=== PATIENT | male | born 1940 | race Caucasian/White ===

== ENCOUNTER 2017-08-08 11:21 | Emergency (ER) | payer MEDICARE ==
[2017-08-08] MEDS ORDERED: PROTONIX 40 MG IV IV ONE ×2 (11:45→11:51)
--- NOTE | 2017-08-08 11:45 | ERPHSYRPT ---
- History of Present Illness Time Seen by Provider: 08/08/17 11:40 Source: patient Exam Limitations: no limitations Patient Subjective Stated Complaint: nausea for two days. has taken two bottles of pepto bismol. denies vomiting or diarrhea Triage Nursing Assessment: ambulated to room per self. skin w/d, color pale. resp easy. a/o times three. mouth moist. states has been able to eat and drink. Physician History: The patient is a 77-year-old male with a friend complaining of nausea for 2 days. He denies vomiting, abdominal pain, or diarrhea. He denies chest pain or shortness of breath. He tried to get into his local doctor but their computer system was down and was told to come to the ER. His past medical history is significant for appendectomy, coronary artery disease, cardiac pacemaker and defibrillator, hypertension, CHF, and high cholesterol. Timing/Duration: day(s) (2), constant, gradual onset Severity: moderate Modifying Factors: Improves With: eating Associated Symptoms: nausea, loss of appetite, No vomiting, No abdominal pain, No shortness of breath, No chest pain Allergies/Adverse Reactions: No Known Drug Allergies Allergy (Verified 08/08/17 11:35) Home Medications: Benazepril HCl [Lotensin] 20 mg PO DAILY 08/08/17 [History] Budesonide/Formoterol Fumarate [Symbicort 160-4.5 Mcg Inhaler] 6 gm IH BID 08/08 [History] Carvedilol 6.25 mg [Coreg 6.25 MG] 6.25 mg PO BID 08/08/17 [History] Cholecalciferol (Vitamin D3) [Vitamin D3] 5,000 unit PO DAILY 08/08/17 [History] Clopidogrel Bisulfate 75 mg [PLAVIX 75 MG Tablet] 75 mg PO DAILY 08/08/17 [History] Cyanocobalamin (Vitamin B-12) [Vitamin B12] 5,000 mcg PO DAILY 08/08/17 [History ] Garlic 1 each PO DAILY 08/08/17 [History] Potassium Chloride 10 Meq Tab* [Klor Con 10 MEQ] 10 meq PO TID 08/08/17 [ History] Simvastatin 40 mg [Zocor 40 mg] 40 mg PO HS 08/08/17 [History] Spironolactone 25 mg [Aldactone 25 MG] 25 mg PO DAILY 08/08/17 [History] Tamsulosin HCl 0.4 mg [Flomax 0.4 MG] 0.4 mg PO DAILY 08/08/17 [History] Ubidecarenone [Co Q-10] 400 mg PO DAILY 08/08/17 [History] Hx Tetanus, Diphtheria Vaccination/Date Given: No Hx Influenza Vaccination/Date Given: Yes Hx Pneumococcal Vaccination/Date Given: Yes - Review of Systems Constitutional: No Fever, No Chills Eyes: No Symptoms Ears, Nose, & Throat: No Symptoms Respiratory: No Cough, No Dyspnea Cardiac: No Chest Pain, No Edema, No Syncope Abdominal/Gastrointestinal: Nausea Genitourinary Symptoms: No Dysuria Musculoskeletal: No Back Pain, No Neck Pain Skin: No Rash Neurological: No Dizziness, No Focal Weakness, No Sensory Changes Psychological: No Symptoms Endocrine: No Symptoms Hematologic/Lymphatic: No Symptoms Immunological/Allergic: No Symptoms All Other Systems: Reviewed and Negative - Past Medical History Pertinent Past Medical History: Yes Cardiac History: Coronary Artery Disease Respiratory History: COPD - Past Surgical History Past Surgical History: Yes Cardiac: Angioplasty, Cardiac Catheterization, Cardiac Stent - Social History Smoking Status: Never smoker Exposure to second hand smoke: No Drug Use: none Patient Lives Alone: Yes - Nursing Vital Signs Nursing Vital Signs: Initial Vital Signs Temperature 97.5 F 08/08/17 11:31 Pulse Rate 81 08/08/17 11:31 Respiratory Rate 18 08/08/17 11:31 Blood Pressure 113/67 08/08/17 11:31 O2 Sat by Pulse Oximetry 98 08/08/17 11:31 Pain Scale Pain Intensity 0 - Physical Exam General Appearance: no apparent distress, alert Eye Exam: PERRL/EOMI, eyes nml inspection Ears, Nose, Throat Exam: normal ENT inspection, TMs normal, pharynx normal, moist mucous membranes Neck Exam: normal inspection, non-tender, supple, full range of motion Respiratory Exam: normal breath sounds, lungs clear, No respiratory distress Cardiovascular Exam: regular rate/rhythm, normal heart sounds, normal peripheral pulses Gastrointestinal/Abdomen Exam: soft, normal bowel sounds, No tenderness, No mass Rectal Exam: not done Back Exam: normal inspection, normal range of motion, No CVA tenderness, No vertebral tenderness Neurologic Exam: alert, oriented x 3, cooperative, normal mood/affect, nml cerebellar function, nml station & gait, sensation nml, No motor deficits Skin Exam: normal color, warm, dry, No rash Lymphatic Exam: No adenopathy SpO2 Interpretation: normal SpO2: 98 Oxygen Delivery: Room Air - Course EKG Interpreted by Me: RATE (paced), NORMAL AXIS, NORMAL INTERVALS, NORMAL QRS, NORMAL ST-T - Radiology Exams Chest X-ray Interpretation: Teleradiologist Report, Negative (per DR Marcelino) Abdomen X-ray Interpretation: Teleradiologist Report, Negative (except for biateral renal micro-calculi per Dr Coronel.) Ordered Tests: Active Orders 24 hr Category Date Time Status EKG-ER Only STAT Care 08/08/17 11:45 Active IV Insertion STAT Care 08/08/17 11:45 Active OBSTR/ACUTE ABDOMEN SERIES Stat Exams 08/08/17 11:46 Completed CBC W DIFF Stat Lab 08/08/17 11:50 Completed CMP Stat Lab 08/08/17 11:50 Completed CULTURE,URINE Stat Lab 08/08/17 12:30 Received LIPASE Stat Lab 08/08/17 11:50 Completed Lactic Acid Stat Lab 08/08/17 12:15 Results TROPONIN Q3H Lab 08/08/17 12:00 Completed TROPONIN Q3H Lab 08/08/17 15:00 Ordered TROPONIN Q3H Lab 08/08/17 18:00 Ordered TROPONIN Q3H Lab 08/08/17 21:00 Ordered TROPONIN Q3H Lab 08/09/17 00:00 Ordered UA W/ MICROSCOPIC Stat Lab 08/08/17 12:30 Completed Medication Summary Generic Name Dose Route Start Last Admin Trade Name Freq PRN Reason Stop Dose Admin Sodium Chloride 1,000 mls @ 999 mls/hr 08/08/17 12:28 08/08/17 12:32 Sodium Chloride 0.9% 1000 Ml IV 08/08/17 13:28 999 mls/hr .Q1H1M STA Administration Discontinued Medications Generic Name Dose Route Start Last Admin Trade Name Freq PRN Reason Stop Dose Admin Sodium Chloride Confirm 08/08/17 12:32 Sodium Chloride 0.9% 1000 Ml Administered 08/08/17 12:33 Dose 1,000 mls @ ud .ROUTE .STK-MED ONE Ondansetron HCl 4 mg 08/08/17 12:14 08/08/17 12:21 Zofran 4 Mg/2 Ml Vial IV 08/08/17 12:15 4 mg STAT ONE Administration Ondansetron HCl Confirm 08/08/17 12:20 Zofran 4 Mg/2 Ml Vial Administered 08/08/17 12:21 Dose 4 mg .ROUTE .STK-MED ONE Pantoprazole Sodium 40 mg 08/08/17 11:45 08/08/17 11:55 Protonix 40 Mg Iv IV 08/08/17 11:46 40 mg STAT ONE Administration Pantoprazole Sodium Confirm 08/08/17 11:51 Protonix 40 Mg Iv Administered 08/08/17 11:52 Dose 40 mg IV .STK-MED ONE Lab/Rad Data: Laboratory Result Diagrams 08/08/17 11:50 08/08/17 11:50 Laboratory Results 08/08/17 08/08/17 08/08/17 Range/Units 12:30 12:15 12:00 WBC (4.0-10.5) K/mm3 RBC (4.1-5.6) M/mm3 Hgb (12.5-18.0) gm/dl Hct (42-50) % MCV (78-100) fl MCH (26-32) pg MCHC (32-36) g/dl RDW (11.5-14.0) % Plt Count (150-450) K/mm3 MPV (6-9.5) fl Gran % (36.0-66.0) % Lymphocytes % (24.0-44.0) % Monocytes % (0.0-12.0) % Eosinophils % (0.00-5.0) % Basophils % (0.0-0.4) % Basophils # (0-0.4) Sodium (136-145) mEq/L Potassium (3.5-5.1) mEq/L Chloride (98-107) mEq/L Carbon Dioxide (21-32) mEq/L Anion Gap (5-15) MEQ/L BUN (9-20) mg/dL Creatinine (0.55-1.30) mg/dl Estimated GFR ML/MIN Glucose (70-110) MG/DL Lactic Acid 3.1 H (0.4-2.0) Calcium (8.5-10.1) mg/dL Total Bilirubin (0.2-1.0) mg/dL AST (15-37) U/L ALT (12-78) U/L Alkaline Phosphatase (46-116) U/L Troponin I 0.178 H* (0.000-0.056) ng/ml Serum Total Protein (6.4-8.2) gm/dL Albumin (3.4-5.0) g/dL Lipase (73-393) U/L Ur Collection Type CLEAN CATCH Urine Color DARK YELLOW (YELLOW) Urine Appearance HAZY (CLEAR) Urine pH 5.0 (5-6) Ur Specific [place] 1.025 (1.005-1.025) Urine Protein TRACE (Negative) Urine Ketones SMALL (NEGATIVE) Urine Blood NEGATIVE (0-5) Gray/ul Urine Nitrite NEGATIVE (NEGATIVE) Urine Bilirubin NEGATIVE (NEGATIVE) Urine Urobilinogen NORMAL (0-1) mg/dL Ur Leukocyte Esterase 2+ (NEGATIVE) Urine Microscopic RBC 0-2 (0-2) /HPF Urine Microscopic WBC 15-25 (0-5) /HPF Ur Epithelial Cells FEW (FEW) /HPF Urine Bacteria MODERATE (NEGATIVE) /HPF Hyaline Casts 25-50 (0-2) /LPF Urine Mucus SLIGHT (NEGATIVE) /HPF Urine Culture Reflexed YES (NO) Urine Glucose NEGATIVE (NEGATIVE) mg/dL Specimen Received 08/08/17 1121 08/08/17 08/08/17 Range/Units 11:50 11:50 WBC 14.6 H (4.0-10.5) K/mm3 RBC 4.68 (4.1-5.6) M/mm3 Hgb 14.6 (12.5-18.0) gm/dl Hct 43.2 (42-50) % MCV 92.3 (78-100) fl MCH 31.2 (26-32) pg MCHC 33.8 (32-36) g/dl RDW 13.4 (11.5-14.0) % Plt Count 139 L (150-450) K/mm3 MPV 11.9 H (6-9.5) fl Gran % 91.2 H (36.0-66.0) % Lymphocytes % 5.6 L (24.0-44.0) % Monocytes % 3.1 (0.0-12.0) % Eosinophils % 0.0 (0.00-5.0) % Basophils % 0.1 (0.0-0.4) % Basophils # 0.02 (0-0.4) Sodium 132 L (136-145) mEq/L Potassium 5.1 (3.5-5.1) mEq/L Chloride 97 L (98-107) mEq/L Carbon Dioxide 20.2 L (21-32) mEq/L Anion Gap 20.2 H (5-15) MEQ/L BUN 30 H (9-20) mg/dL Creatinine 2.14 H (0.55-1.30) mg/dl Estimated GFR 32 ML/MIN Glucose 225 H (70-110) MG/DL Lactic Acid (0.4-2.0) Calcium 9.7 (8.5-10.1) mg/dL Total Bilirubin 1.00 (0.2-1.0) mg/dL AST 22 (15-37) U/L ALT 21 (12-78) U/L Alkaline Phosphatase 49 (46-116) U/L Troponin I (0.000-0.056) ng/ml Serum Total Protein 8.3 H (6.4-8.2) gm/dL Albumin 4.1 (3.4-5.0) g/dL Lipase 149 (73-393) U/L Ur Collection Type Urine Color (YELLOW) Urine Appearance (CLEAR) Urine pH (5-6) Ur Specific [place] (1.005-1.025) Urine Protein (Negative) Urine Ketones (NEGATIVE) Urine Blood (0-5) Gray/ul Urine Nitrite (NEGATIVE) Urine Bilirubin (NEGATIVE) Urine Urobilinogen (0-1) mg/dL Ur Leukocyte Esterase (NEGATIVE) Urine Microscopic RBC (0-2) /HPF Urine Microscopic WBC (0-5) /HPF Ur Epithelial Cells (FEW) /HPF Urine Bacteria (NEGATIVE) /HPF Hyaline Casts (0-2) /LPF Urine Mucus (NEGATIVE) /HPF Urine Culture Reflexed (NO) Urine Glucose (NEGATIVE) mg/dL Specimen Received - Progress Progress: improved Progress Note: 08/08/17 12:56 After protonix 40 mg and zofran 4 mg IV, pt's nausea is better. 08/08/17 12:57 Troponin is elevated to 0.178 and pt [facility] be [facility] - Departure Time of Disposition: 12:58 Departure Disposition: Transfer (Transfer to [facility] per Dr Finn) Clinical Impression: Elevated troponin I measurement, Nausea, Renal failure, UTI (urinary tract infection) Condition: Stable Critical Care Time: No Referrals: RONALD ZUÑIGA MD [Primary Care Provider] -
[2017-08-08 11:58] LABS: BASOPHIL % 0.1 % (0.0-0.4); Granulocytes % 91.2 % (36.0-66.0); Lymphocytes % 5.6 % (24.0-44.0); Mean Cell Volume 92.3 fl (78-100); Mean Corpuscular Hemoglobin 31.2 pg (26-32); Mean Platelet Volume 11.9 fl (6-9.5); Monocytes % 3.1 % (0.0-12.0); Platelet Count 139 K/mm3 (150-450); Red Blood Count 4.68 M/mm3 (4.1-5.6); Red Cell Distribution Width 13.4 % (11.5-14.0); White Blood Count 14.6 K/mm3 (4.0-10.5)
[2017-08-08 12:07] LABS: ALBUMIN 4.1 g/dL (3.4-5.0); ANION GAP 20.2 MEQ/L (5-15); Carbon Dioxide 20.2 mEq/L (21-32); Potassium 5.1 mEq/L (3.5-5.1); Total Protein 8.3 gm/dL (6.4-8.2)
[2017-08-08] MEDS ORDERED: Zofran 4 MG/2 ML VIAL IV ONE (12:14)
[2017-08-08 12:20] LABS: Lactic Acid 3.1 (0.4-2.0)
[2017-08-08] MEDS ORDERED: Zofran 4 MG/2 ML VIAL ONE (12:20)
[2017-08-08] MEDS ORDERED: Sodium Chloride 0.9% 1000 ML 1,000 ML IV STA (12:28)
[2017-08-08] MEDS ORDERED: Sodium Chloride 0.9% 1000 ML 1,000 ML ONE (12:32)
--- NOTE | 2017-08-08 12:36 | XRAY ---
Indication: Nausea and cough. Comparison: Chest exam November 15, 2014. 2 views of the demonstrates nonspecific nonobstructed bowel gas pattern. There are bilateral renal micro-calculi and mild scattered vascular calcifications. Remaining solid organs unremarkable. Osseous structures intact with mild osteopenia and mild degenerative changes throughout the spine. Single PA chest hyperinflated and clear with incidental calcified granulomas. Heart is not enlarged. New left-sided AICD. Bony thorax intact. Impression: 1. Bilateral renal micro-calculi. CT renal stone study may yield further information if clinically warranted. 2. Nonacute one view chest.
[2017-08-08 12:55] LABS: Collection Type CLEAN CATCH; Glucose NEGATIVE (NEGATIVE); Leukocyte Esterase 2+ (NEGATIVE)
[2017-08-08 12:56] LABS: ADD URINE CULTURE? YES (NO); Bacteria MODERATE /HPF (NEGATIVE); Bilirubin NEGATIVE (NEGATIVE); Blood NEGATIVE Ery/ul (0-5); COMPLETE URINE MICROSCOPIC? YES; Epithelial Cells FEW /HPF (FEW); Hyaline Casts 25-50 /LPF (0-2); Mucus SLIGHT /HPF (NEGATIVE); WBC 15-25 /HPF (0-5)
[2017-08-08 13:47] VITALS: BP 99/57; PULSE 77; O2SAT 97
== END 2017-08-08 14:22 | disposition short-term general hospital (02) ==
LOC: ED 11:21
DX: R77.8 Other specified abnormalities of plasma proteins (principal); R11.0 Nausea; N19 Unspecified kidney failure; N39.0 Urinary tract infection, site not specified; Z79.899 Other long term (current) drug therapy
CPT/HCPCS: 36000; 36415; 74022; 80053; 81000; 83605; 83690; 84484; 85025; 87077; 87086; 87186; 93005; 96360; 96374; 96375; 99285; J2405

== ENCOUNTER 2017-08-22 14:53 | Emergency (ER) | payer MEDICARE ==
[2017-08-22] MEDS ORDERED: Zofran 4 MG/2 ML VIAL IV ONE (15:31)
[2017-08-22] MEDS ORDERED: Sodium Chloride 0.9% 1000 ML 1,000 ML ONE ×2 (15:35→17:26)
[2017-08-22] MEDS ORDERED: Zofran 4 MG/2 ML VIAL ONE (15:35)
[2017-08-22 15:38] LABS: BASOPHIL % 0.1 % (0.0-0.4); Eosinophil % 0.2 % (0.00-5.0); Lymphocytes % 11.6 % (24.0-44.0); Mean Cell Volume 88.4 fl (78-100); Mean Corpuscular Hemoglobin 29.9 pg (26-32); Mean Platelet Volume 10.5 fl (6-9.5); Monocytes % 8.1 % (0.0-12.0); Platelet Count 372 K/mm3 (150-450); Red Blood Count 4.65 M/mm3 (4.1-5.6); Red Cell Distribution Width 13.4 % (11.5-14.0); White Blood Count 8.4 K/mm3 (4.0-10.5)
--- NOTE | 2017-08-22 15:39 | ERPHSYRPT ---
- History of Present Illness Time Seen by Provider: 08/22/17 15:27 Source: patient Exam Limitations: no limitations Patient Subjective Stated Complaint: dizziness today. saw dr malagon this morning and stated he was back at home and got up and got dizzy. got out of hospital on 08/18 after a 10 day hospital stay at [facility]. pt c/o constant nausea/ vomiting daily since 08/08 Triage Nursing Assessment: abd soft. skin pale/warm and dry. no weakness noted. no dizziness with movement on arrival. c/o lower bcak pain and constant nausea. Physician History: 77-year-old white male arrives with complaint of nausea since August 08, also with a feeling dizzy states he was "bouncing off the baird at around 2:00 this afternoon. Denies any pain does not have any problems moving or speaking. Patient apparently was recently seen at [facility] August 08 and transferred to [facility] where he was cared for until the . He states that he was told by his grievance manager that he might have some type of infection and has been on antibiotics. Past medical history includes COPD, coronary artery disease. Past surgical history includes angioplasty, cardiac stent, cardiac catheter, defibrillator, pacer, appendectomy. Timing/Duration: other (patient states patient states he's been nauseous since August 08,patient states he began to feel dizzy and bouncing off baird since 2: 00 this afternoon) Severity: moderate Modifying Factors: Improves With: nothing Associated Symptoms: nausea, other (dizziness, problems with balance), No vomiting, No abdominal pain, No shortness of breath, No heartburn, No diaphoresis, No cough, No chills, No chest pain, No fever, No headaches, No loss of appetite, No malaise, No rash, No syncope, No seizure, No weakness Allergies/Adverse Reactions: No Known Drug Allergies Allergy (Verified 08/22/17 15:11) Home Medications: Benazepril HCl [Lotensin] 20 mg PO DAILY 08/08/17 [History] Budesonide/Formoterol Fumarate [Symbicort 160-4.5 Mcg Inhaler] 6 gm IH BID 08/08 [History] Carvedilol 6.25 mg [Coreg 6.25 MG] 6.25 mg PO BID 08/08/17 [History] Cholecalciferol (Vitamin D3) [Vitamin D3] 5,000 unit PO DAILY 08/08/17 [History] Cyanocobalamin (Vitamin B-12) [Vitamin B12] 5,000 mcg PO DAILY 08/08/17 [History ] Garlic 1 each PO DAILY 08/08/17 [History] Potassium Chloride 10 Meq Tab* [Klor Con 10 MEQ] 10 meq PO TID 08/08/17 [ History] Spironolactone 25 mg [Aldactone 25 MG] 25 mg PO DAILY 08/08/17 [History] Tamsulosin HCl 0.4 mg [Flomax 0.4 MG] 0.4 mg PO DAILY 08/08/17 [History] Ubidecarenone [Co Q-10] 400 mg PO DAILY 08/08/17 [History] Amiodarone HCl 200 mg [Cordarone 200 MG] 200 mg PO BID 08/22/17 [History] Rivaroxaban [Xarelto] 20 mg PO DAILY 08/22/17 [History] Simvastatin 20Mg [Zocor 20Mg] 10 mg PO DAILY 08/22/17 [History] Smz/Tmp Ds Tablet [Bactrim Ds Tablet] 1 tab PO Q12H 08/22/17 [History] Hx Tetanus, Diphtheria Vaccination/Date Given: Yes Hx Influenza Vaccination/Date Given: Yes Hx Pneumococcal Vaccination/Date Given: No Immunizations Up to Date: Yes - Review of Systems Constitutional: No Fever, No Chills Eyes: No Symptoms Ears, Nose, & Throat: No Symptoms Respiratory: No Cough, No Dyspnea Cardiac: No Chest Pain, No Edema, No Syncope Abdominal/Gastrointestinal: Nausea, No Abdominal Pain, No Vomiting, No Diarrhea , No Constipation, No Hematemesis, No Hematochezia, No Melena, No Dysphagia, No Appetite Changes Genitourinary Symptoms: No Dysuria Musculoskeletal: No Back Pain, No Neck Pain Skin: No Rash Neurological: Dizziness, Other (trouble with balance), No Focal Weakness, No Gait Changes, No Headache, No Irritability, No Lethargy, No Paralysis, No Parasthesia, No Seizure, No Sensory Changes, No Speech Changes, No Tics, No Tremors, No Vertigo Psychological: No Symptoms Endocrine: No Symptoms All Other Systems: Reviewed and Negative - Past Medical History Pertinent Past Medical History: Yes Cardiac History: Coronary Artery Disease Respiratory History: COPD - Past Surgical History Past Surgical History: Yes Cardiac: Angioplasty, Cardiac Catheterization, Cardiac Stent, Internal Defibrillator, Pacemaker Gastrointestinal: Appendectomy - Social History Smoking Status: Never smoker Exposure to second hand smoke: Yes Drug Use: none Patient Lives Alone: No - Nursing Vital Signs Nursing Vital Signs: Initial Vital Signs Temperature 97.5 F 08/22/17 15:02 Pulse Rate 69 08/22/17 15:02 Respiratory Rate 18 08/22/17 15:02 Blood Pressure 108/40 08/22/17 15:02 O2 Sat by Pulse Oximetry 97 08/22/17 15:02 Pain Scale Pain Intensity 0 - Physical Exam General Appearance: no apparent distress, alert Eye Exam: PERRL/EOMI, eyes nml inspection Ears, Nose, Throat Exam: normal ENT inspection, TMs normal, pharynx normal, moist mucous membranes Neck Exam: normal inspection, non-tender, supple, full range of motion Respiratory Exam: normal breath sounds, lungs clear, No respiratory distress Cardiovascular Exam: regular rate/rhythm, normal heart sounds, normal peripheral pulses Gastrointestinal/Abdomen Exam: soft, normal bowel sounds, No tenderness, No mass Back Exam: normal inspection, normal range of motion, No CVA tenderness, No vertebral tenderness Extremity Exam: normal inspection, normal range of motion, pelvis stable Neurologic Exam: alert, oriented x 3, cooperative, normal mood/affect, nml cerebellar function, nml station & gait, sensation nml, No motor deficits Skin Exam: normal color, warm, dry, No rash Lymphatic Exam: No adenopathy SpO2 Interpretation: normal (97%) SpO2: 97 Oxygen Delivery: Room Air - Course Nursing assessment & vital signs reviewed: Yes EKG Interpreted by Me: RATE (66 bpm), Other (EKG: Paced rhythm, 66 bpm) Ordered Tests: Active Orders 24 hr Category Date Time Status Accucheck STAT Care 08/22/17 15:31 Active EKG-ER Only STAT Care 08/22/17 15:31 Active IV Insertion STAT Care 08/22/17 15:31 Active Orthostatic Vital Signs STAT Care 08/22/17 15:31 Active CHEST 1 VIEW (PORTABLE) Stat Exams 08/22/17 15:31 Taken HEAD WITHOUT CONTRAST [CT] Stat Exams 08/22/17 15:31 Taken CBC W DIFF Stat Lab 08/22/17 15:20 Completed CMP Stat Lab 08/22/17 15:20 Completed CULTURE,URINE Stat Lab 08/22/17 15:31 Received ETHYL ALCOHOL Stat Lab 08/22/17 15:20 Completed TROPONIN Q3H Lab 08/22/17 15:20 Completed UA W/ MICROSCOPIC Stat Lab 08/22/17 15:31 Completed Urine Triage Profile Stat Lab 08/22/17 15:32 Completed Medication Summary Discontinued Medications Generic Name Dose Route Start Last Admin Trade Name Lukeq PRN Reason Stop Dose Admin Dextrose 50 ml 08/22/17 16:28 08/22/17 16:55 D50w 50 Ml Abboject IV 08/22/17 16:29 50 ml STAT ONE Administration Dextrose Confirm 08/22/17 16:54 D50w 50 Ml Abboject Administered 08/22/17 16:55 Dose 50 ml IV .STK-MED ONE Sodium Chloride 1,000 mls @ 100 mls/hr 08/22/17 15:45 08/22/17 15:37 Sodium Chloride 0.9% 1000 Ml IV 09/21/17 15:44 100 mls/hr .Q10H STEPHANIE Administration Sodium Chloride 1,000 mls @ 999 mls/hr 08/22/17 17:25 08/22/17 17:49 Sodium Chloride 0.9% 1000 Ml IV 08/22/17 18:25 999 mls/hr .Q1H1M STA Administration Sodium Chloride Confirm 08/22/17 15:35 Sodium Chloride 0.9% 1000 Ml Administered 08/22/17 15:36 Dose 1,000 mls @ ud .ROUTE .STK-MED ONE Sodium Chloride Confirm 08/22/17 17:26 Sodium Chloride 0.9% 1000 Ml Administered 08/22/17 17:27 Dose 1,000 mls @ ud .ROUTE .STK-MED ONE Insulin Human Regular 10 unit 08/22/17 16:28 08/22/17 16:55 Novolin R IV 08/22/17 16:29 10 unit STAT ONE Administration Insulin Human Regular Confirm 08/22/17 16:54 Novolin R Administered 08/22/17 16:55 Dose 10 unit .ROUTE .STK-MED ONE Ondansetron HCl 4 mg 08/22/17 15:31 08/22/17 15:37 Zofran 4 Mg/2 Ml Vial IV 08/22/17 15:32 4 mg STAT ONE Administration Ondansetron HCl Confirm 08/22/17 15:35 Zofran 4 Mg/2 Ml Vial Administered 08/22/17 15:36 Dose 4 mg .ROUTE .STK-MED ONE Lab/Rad Data: Laboratory Result Diagrams 08/22/17 15:20 08/22/17 15:20 Laboratory Results 08/22/17 08/22/17 08/22/17 Range/Units 15:32 15:31 15:20 WBC (4.0-10.5) K/mm3 RBC (4.1-5.6) M/mm3 Hgb (12.5-18.0) gm/dl Hct (42-50) % MCV (78-100) fl MCH (26-32) pg MCHC (32-36) g/dl RDW (11.5-14.0) % Plt Count (150-450) K/mm3 MPV (6-9.5) fl Gran % (36.0-66.0) % Lymphocytes % (24.0-44.0) % Monocytes % (0.0-12.0) % Eosinophils % (0.00-5.0) % Basophils % (0.0-0.4) % Basophils # (0-0.4) Sodium (136-145) mEq/L Potassium (3.5-5.1) mEq/L Chloride (98-107) mEq/L Carbon Dioxide (21-32) mEq/L Anion Gap (5-15) MEQ/L BUN (9-20) mg/dL Creatinine (0.55-1.30) mg/dl Estimated GFR ML/MIN Glucose (70-110) MG/DL Calcium (8.5-10.1) mg/dL Total Bilirubin (0.2-1.0) mg/dL AST (15-37) U/L ALT (12-78) U/L Alkaline Phosphatase (46-116) U/L Troponin I < 0.017 (0.000-0.056) ng/ml Serum Total Protein (6.4-8.2) gm/dL Albumin (3.4-5.0) g/dL Ur Collection Type VOID Urine Color YELLOW (YELLOW) Urine Appearance CLEAR (CLEAR) Urine pH 5.0 (5-6) Ur Specific [place] 1.020 (1.005-1.025) Urine Protein 2+ (Negative) Urine Ketones NEGATIVE (NEGATIVE) Urine Blood 50 (0-5) Gray/ul Urine Nitrite NEGATIVE (NEGATIVE) Urine Bilirubin NEGATIVE (NEGATIVE) Urine Urobilinogen NORMAL (0-1) mg/dL Ur Leukocyte Esterase 1+ (NEGATIVE) Urine Microscopic RBC 0-2 (0-2) /HPF Urine Microscopic WBC 5-10 (0-5) /HPF Ur Epithelial Cells FEW (FEW) /HPF Urine Bacteria MODERATE (NEGATIVE) /HPF Urine Mucus MODERATE (NEGATIVE) /HPF Urine Culture Reflexed YES (NO) Urine Glucose NEGATIVE (NEGATIVE) mg/dL Urine Opiates Level NEG. (NEGATIVE) Ur Methadone NEG. (NEGATIVE) Urine Barbiturates NEG. (NEGATIVE) Ur Phencyclidine (PCP) NEG. (NEGATIVE) Urine Amphetamine NEG. (NEGATIVE) U Benzodiazepine Level NEG. (NEGATIVE) Urine Cocaine NEG. (NEGATIVE) Urine Marijuana (THC) NEG. (NEGATIVE) Ethyl Alcohol (0.00-0.01) % Specimen Received 08/22/17 1615 08/22/17 08/22/17 Range/Units 15:20 15:20 WBC 8.4 (4.0-10.5) K/mm3 RBC 4.65 (4.1-5.6) M/mm3 Hgb 13.9 (12.5-18.0) gm/dl Hct 41.1 L (42-50) % MCV 88.4 (78-100) fl MCH 29.9 (26-32) pg MCHC 33.8 (32-36) g/dl RDW 13.4 (11.5-14.0) % Plt Count 372 (150-450) K/mm3 MPV 10.5 H (6-9.5) fl Gran % 80.0 H (36.0-66.0) % Lymphocytes % 11.6 L (24.0-44.0) % Monocytes % 8.1 (0.0-12.0) % Eosinophils % 0.2 (0.00-5.0) % Basophils % 0.1 (0.0-0.4) % Basophils # 0.01 (0-0.4) Sodium 126 L (136-145) mEq/L Potassium 6.9 H* (3.5-5.1) mEq/L Chloride 93 L (98-107) mEq/L Carbon Dioxide 16.7 L (21-32) mEq/L Anion Gap 24.4 H (5-15) MEQ/L BUN 32 H (9-20) mg/dL Creatinine 2.88 H (0.55-1.30) mg/dl Estimated GFR 23 ML/MIN Glucose 137 H (70-110) MG/DL Calcium 10.1 (8.5-10.1) mg/dL Total Bilirubin 0.50 (0.2-1.0) mg/dL AST 24 (15-37) U/L ALT 22 (12-78) U/L Alkaline Phosphatase 53 (46-116) U/L Troponin I (0.000-0.056) ng/ml Serum Total Protein 8.9 H (6.4-8.2) gm/dL Albumin 4.2 (3.4-5.0) g/dL Ur Collection Type Urine Color (YELLOW) Urine Appearance (CLEAR) Urine pH (5-6) Ur Specific [place] (1.005-1.025) Urine Protein (Negative) Urine Ketones (NEGATIVE) Urine Blood (0-5) Gray/ul Urine Nitrite (NEGATIVE) Urine Bilirubin (NEGATIVE) Urine Urobilinogen (0-1) mg/dL Ur Leukocyte Esterase (NEGATIVE) Urine Microscopic RBC (0-2) /HPF Urine Microscopic WBC (0-5) /HPF Ur Epithelial Cells (FEW) /HPF Urine Bacteria (NEGATIVE) /HPF Urine Mucus (NEGATIVE) /HPF Urine Culture Reflexed (NO) Urine Glucose (NEGATIVE) mg/dL Urine Opiates Level (NEGATIVE) Ur Methadone (NEGATIVE) Urine Barbiturates (NEGATIVE) Ur Phencyclidine (PCP) (NEGATIVE) Urine Amphetamine (NEGATIVE) U Benzodiazepine Level (NEGATIVE) Urine Cocaine (NEGATIVE) Urine Marijuana (THC) (NEGATIVE) Ethyl Alcohol < 0.010 (0.00-0.01) % Specimen Received - Progress Progress: improved Progress Note: 08/22/17 15:37 This is a 77-year-old white male with history of COPD coronary artery disease who has a pacer defibrillator. He apparently has had a prolonged hospital stay from a August 08 to August 18 at [facility]. He apparently has seen his grievance manager this morning. He states that this afternoon around 2:00 he went to go to the bathroom he began to feel dizzy he states that he "bounced off the baird" secondary to imbalance. He states he continues to feel nauseous since On physical examination patient is alert oriented 3 he has full range of motion to all extremities. EKG shows a paced rhythm. Will obtain appropriate laboratory studies head CT Provide normal saline at 100 mL per hour 08/22/17 16:[address] no comparisons nonacute senile brain. Patient's EKG paced rhythm 66 bpm Chest x-ray no acute changes Patient's chemistry is remarkable for sodium 126 potassium 6.9 chloride 93 bicarbonate 16.7 BUN 32 creatinine 2.88, glucose 137 CBC White blood cell 8.4 hemoglobin 13.9 hematocrit 41.1 platelets 372 Blood alcohol level less than 0.010 Patient did have a transient decrease of his blood pressure which was read as 81 systolic however he initially had a blood pressure systolic of 105 is come back to 98 systolic. I've discussed case with at [facility] (ER doctor) she is requested that I begin insulin and glucose to bring down the patient's blood potassium,. Give patient Kayexalate as well. Will provide IV fluids to support blood pressure they appear to be stable at this time will make sure this remains stable. Will plan for transfer Will call with vitals prior to transfer Diagnosis dizziness. Hyperkalemia Hyponatremia Nausea. 08/22/17 16:42 I've asked the nurses go ahead and collar turner patient's normal saline to run at in the running in a 500 mL per hour will plan the patient received a liter of this and will plan on patient being transferred on normal saline 150 mL per hour. Blood pressure stable at this time, orders for D50 1 amp as well as Humulin R 10 units IV have been ordered. Will plan on transfer. 08/22/17 19:52 - Departure Time of Disposition: 17:00 Departure Disposition: Transfer ([facility] Dr Butcher) Clinical Impression: Hyperkalemia, Hyponatremia, Dizziness, Nausea Condition: Fair Critical Care Time: No Referrals: RONALD ZUÑIGA MD [Primary Care Provider] -
[2017-08-22] MEDS ORDERED: Sodium Chloride 0.9% 1000 ML 1,000 ML IV SCH (15:45)
[2017-08-22 15:52] LABS: ALBUMIN 4.2 g/dL (3.4-5.0); ALKALINE PHOSPHATASE 53 U/L (46-116); ANION GAP 24.4 MEQ/L (5-15); BLOOD UREA NITROGEN 32 mg/dL (9-20); CHLORIDE 93 mEq/L (98-107); Carbon Dioxide 16.7 mEq/L (21-32); ETHYL ALCOHOL < 0.010 % (0.00-0.01); Glucose 137 MG/DL (70-110); SGOT/AST 24 U/L (15-37); SGPT/ALT 22 U/L (12-78); SODIUM 126 mEq/L (136-145); Total Protein 8.9 gm/dL (6.4-8.2)
[2017-08-22 15:53] LABS: Potassium 6.9 mEq/L (3.5-5.1)
[2017-08-22] MEDS ORDERED: NovoLIN R IV ONE (16:28)
[2017-08-22] MEDS ORDERED: D50W 50 ml Abboject IV ONE ×2 (16:28→16:54)
[2017-08-22 16:39] LABS: Collection Type VOID; Glucose NEGATIVE (NEGATIVE); Leukocyte Esterase 1+ (NEGATIVE)
[2017-08-22 16:40] LABS: ADD URINE CULTURE? YES (NO); Bacteria MODERATE /HPF (NEGATIVE); Bilirubin NEGATIVE (NEGATIVE); Blood 50 Ery/ul (0-5); COMPLETE URINE MICROSCOPIC? YES; Epithelial Cells FEW /HPF (FEW); Mucus MODERATE /HPF (NEGATIVE)
[2017-08-22] MEDS ORDERED: NovoLIN R ONE (16:54)
[2017-08-22] MEDS ORDERED: Sodium Chloride 0.9% 1000 ML 1,000 ML IV STA (17:25)
[2017-08-22 18:00] VITALS: BP 111/59; PULSE 79
[2017-08-22 19:51] VITALS: O2SAT 97
--- NOTE | 2017-08-22 22:22 | XRAY ---
Indication: Unbalanced when walking. Comparison: August 08, 2017. Portable chest unchanged again hyperinflated and clear with incidental calcified granulomas and left-sided AICD. Heart is not enlarged. No new/acute findings.
--- NOTE | 2017-08-22 22:24 | XRAY ---
Indication: Unbalanced when walking. Multiple contiguous axial images obtained through the head without contrast. Comparison: None Age-appropriate global atrophy and moderate periventricular degenerative micro-ischemia bilaterally. No acute intracranial hemorrhage, abnormal extra-axial fluid collection, or mass effect. Fourth ventricle is midline without hydrocephalus. Bony calvarium intact. Visualized paranasal sinuses and mastoid air cells are clear. Impression: Nonacute senile brain. CTDI 67.60
== END 2017-08-22 18:40 | disposition short-term general hospital (02) ==
LOC: ED 14:53
DX: E87.5 Hyperkalemia (principal); E87.1 Hypo-osmolality and hyponatremia; R42 Dizziness and giddiness; R11.0 Nausea; Z79.899 Other long term (current) drug therapy; I25.10 Atherosclerotic heart disease of native coronary artery without angina pectoris; J44.9 Chronic obstructive pulmonary disease, unspecified; Z98.61 Coronary angioplasty status; Z95.0 Presence of cardiac pacemaker; Z95.810 Presence of automatic (implantable) cardiac defibrillator
CPT/HCPCS: 96374; 99285; 36000; 82962; 96360; 96361; 96375; 93005; 81000; 36415; 80307; 85025; 80053; 84484; 87086; 71010; 70450; G0481; J2405; A9270-GY

== ENCOUNTER 2017-09-08 08:28 | Emergency (ER) | payer MEDICARE ==
[2017-09-08] MEDS ORDERED: Zofran 4 MG/2 ML VIAL IV ONE (09:00)
[2017-09-08] MEDS ORDERED: Sodium Chloride 0.9% 1000 ML 1,000 ML IV SCH (09:00)
[2017-09-08] MEDS ORDERED: MORPHINE SULFATE 10 MG/ML IV ONE (09:00)
[2017-09-08] MEDS ORDERED: MORPHINE SULFATE 10 MG/ML ONE (09:07)
[2017-09-08] MEDS ORDERED: Sodium Chloride 0.9% 1000 ML 1,000 ML ONE (09:08)
[2017-09-08] MEDS ORDERED: Zofran 4 MG/2 ML VIAL ONE (09:08)
[2017-09-08 09:18] LABS: BASOPHIL % 0.2 % (0.0-0.4); Eosinophil % 0.2 % (0.00-5.0); Lymphocytes % 10.1 % (24.0-44.0); Mean Cell Volume 90.8 fl (78-100); Mean Corpuscular Hemoglobin 29.2 pg (26-32); Monocytes % 7.5 % (0.0-12.0); Platelet Count 167 K/mm3 (150-450); Red Cell Distribution Width 14.1 % (11.5-14.0)
--- NOTE | 2017-09-08 09:34 | ERPHSYRPT ---
- History of Present Illness Time Seen by Provider: 09/08/17 08:45 Exam Limitations: clinical condition Patient Subjective Stated Complaint: pt here for lower back pain for a month now , states started after spending 3 weeks in hospital. no injury. states now legs are weak, denies any difficulty with b/b . pt also co nausea Triage Nursing Assessment: pt alert, resp easy, skin w/d pink. no edema noted. pt able to get from w/c to bed with no assistance. Physician History: PATIENT WITH A HISTORY OF CHF, COPD COMPLAINS OF LOW BACK PAIN X 1 MONTH, DENIES HISTORY OF TRAUMA OR INJURY, RADIATION OF PAIN DOWN LEGS. HAS NO RELIEF AFTER TREATMENT BY CHIROPRACTOR TREATMENTS. Timing/Duration: week(s) Method of Injury: unknown Quality: throbbing Back Pain Location: lumbar spine Back Pain Radiation: buttocks Severity of Pain-Max: moderate Severity of Pain-Current: moderate Modifying Factors: Improves With: movement Associated Symptoms: muscle spasms Previous symptoms: same symptoms as today Allergies/Adverse Reactions: No Known Drug Allergies Allergy (Verified 09/08/17 08:44) Home Medications: Benazepril HCl [Lotensin] 20 mg PO DAILY 08/08/17 [History] Budesonide/Formoterol Fumarate [Symbicort 160-4.5 Mcg Inhaler] 6 gm IH BID 08/08 [History] Carvedilol 6.25 mg [Coreg 6.25 MG] 6.25 mg PO BID 08/08/17 [History] Cholecalciferol (Vitamin D3) [Vitamin D3] 5,000 unit PO DAILY 08/08/17 [History] Cyanocobalamin (Vitamin B-12) [Vitamin B12] 5,000 mcg PO DAILY 08/08/17 [History ] Garlic 1 each PO DAILY 08/08/17 [History] Potassium Chloride 10 Meq Tab* [Klor Con 10 MEQ] 10 meq PO TID 08/08/17 [ History] Spironolactone 25 mg [Aldactone 25 MG] 25 mg PO DAILY 08/08/17 [History] Tamsulosin HCl 0.4 mg [Flomax 0.4 MG] 0.4 mg PO DAILY 08/08/17 [History] Ubidecarenone [Co Q-10] 400 mg PO DAILY 08/08/17 [History] Amiodarone HCl 200 mg [Cordarone 200 MG] 200 mg PO BID 08/22/17 [History] Rivaroxaban [Xarelto] 20 mg PO DAILY 08/22/17 [History] Simvastatin 20Mg [Zocor 20Mg] 10 mg PO DAILY 08/22/17 [History] Smz/Tmp Ds Tablet [Bactrim Ds Tablet] 1 tab PO Q12H 08/22/17 [History] Hx Tetanus, Diphtheria Vaccination/Date Given: No Hx Influenza Vaccination/Date Given: Yes Hx Pneumococcal Vaccination/Date Given: No Immunizations Up to Date: Yes - Review of Systems Constitutional: No Fever, No Chills Eyes: No Symptoms Ears, Nose, & Throat: No Symptoms Respiratory: No Cough, No Dyspnea Cardiac: No Chest Pain, No Edema, No Syncope Abdominal/Gastrointestinal: No Abdominal Pain, No Nausea, No Vomiting, No Diarrhea Genitourinary Symptoms: No Symptoms, Flank Pain, No Dysuria Musculoskeletal: Back Pain, No Neck Pain Skin: No Rash Neurological: No Dizziness, No Focal Weakness, No Sensory Changes Psychological: No Symptoms Endocrine: No Symptoms All Other Systems: Reviewed and Negative - Past Medical History Pertinent Past Medical History: Yes Cardiac History: Coronary Artery Disease Respiratory History: COPD - Past Surgical History Past Surgical History: Yes Cardiac: Angioplasty, Cardiac Catheterization, Cardiac Stent, Internal Defibrillator, Pacemaker Gastrointestinal: Appendectomy - Social History Smoking Status: Never smoker Exposure to second hand smoke: No Drug Use: none Patient Lives Alone: No - Nursing Vital Signs Nursing Vital Signs: Initial Vital Signs Temperature 98 F 09/08/17 08:37 Pulse Rate 83 09/08/17 08:37 Respiratory Rate 16 09/08/17 08:37 Blood Pressure 112/67 09/08/17 08:37 O2 Sat by Pulse Oximetry 98 09/08/17 08:37 Pain Scale Pain Intensity [Back] 10 Pain Intensity 10 - Physical Exam General Appearance: no apparent distress, alert Eye Exam: PERRL/EOMI, eyes nml inspection Neck Exam: normal inspection, non-tender, supple, full range of motion, No meningismus, No midline tenderness Respiratory Exam: normal breath sounds, lungs clear, No respiratory distress Cardiovascular Exam: regular rate/rhythm, normal heart sounds Gastrointestinal Exam: soft, normal bowel sounds, other (NONTENDER, BILATERAL CVA TENDERNESS), No tenderness, No mass Back Exam: normal inspection, vertebral tenderness (L1-L5 VERTEBRAL AND PARASPINAL), decreased range of motion, muscle spasm Extremity Exam: normal inspection, normal range of motion, No calf tenderness, No pedal edema Peripheral Pulses: carotid (R): 2+, carotid (L): 2+, femoral (R): 2+, femoral (L ): 2+, dorsalis-pedis (R): 2+, dorsalis-pedis (L): 2+ Neurologic Exam: alert, oriented x 3, cooperative, yarn finisher II-XII nml as tested, normal mood/affect, nml station & gait, sensation nml, No motor deficits Skin Exam: normal color, warm, dry, No rash SpO2 Interpretation: normal SpO2: 98 Oxygen Delivery: Room Air - CT Exams Abdomen/Pelvis CT Interpretation: Tele-radiologist Report (BILATERAL RENAL TINY NONOBSTRUCTIONS STONES, NO EVIDENCE OF HYDRONEPHROSIS ), Other (THERE ARE SMALL ANTERIOR AND LATERAL OSTEOPHYTES INVOLVING THE LUMBAR SPINE, NO ACUTE FRACTURE OR DISLOCATION) Ordered Tests: Active Orders 24 hr Category Date Time Status IV Insertion STAT Care 09/08/17 09:00 Active ABDOMEN AND PELVIS W/0 CONTRAS [CT] Stat Exams 09/08/17 09:02 Taken AMYLASE Stat Lab 09/08/17 09:14 Completed CBC W DIFF Stat Lab 09/08/17 09:14 Completed CMP Stat Lab 09/08/17 09:14 Completed LIPASE Stat Lab 09/08/17 09:14 Completed UA W/RFX UR CULTURE Stat Lab 09/08/17 10:00 Completed Medication Summary Generic Name Dose Route Start Last Admin Trade Name Freq PRN Reason Stop Dose Admin Sodium Chloride 1,000 mls @ 100 mls/hr 09/08/17 09:00 09/08/17 09:09 Sodium Chloride 0.9% 1000 Ml IV 10/08/17 08:59 100 mls/hr .Q10H STEPHANIE Administration Discontinued Medications Generic Name Dose Route Start Last Admin Trade Name Freq PRN Reason Stop Dose Admin Morphine Sulfate 6 mg 09/08/17 09:00 09/08/17 09:16 Morphine Sulfate 10 Mg/Ml IV 09/08/17 09:01 6 mg STAT ONE Administration Morphine Sulfate Confirm 09/08/17 09:07 Morphine Sulfate 10 Mg/Ml Administered 09/08/17 09:08 Dose 10 mg .ROUTE .STK-MED ONE Ondansetron HCl 4 mg 09/08/17 09:00 09/08/17 09:09 Zofran 4 Mg/2 Ml Vial IV 09/08/17 09:01 4 mg STAT ONE Administration Ondansetron HCl Confirm 09/08/17 09:08 Zofran 4 Mg/2 Ml Vial Administered 09/08/17 09:09 Dose 4 mg .ROUTE .STK-MED ONE Lab/Rad Data: Laboratory Result Diagrams 09/08/17 09:14 09/08/17 09:14 Laboratory Results 09/08/17 09/08/17 09/08/17 Range/Units 10:00 09:14 09:14 WBC 6.0 (4.0-10.5) K/mm3 RBC 3.90 L (4.1-5.6) M/mm3 Hgb 11.4 L (12.5-18.0) gm/dl Hct 35.4 L (42-50) % MCV 90.8 (78-100) fl MCH 29.2 (26-32) pg MCHC 32.2 (32-36) g/dl RDW 14.1 H (11.5-14.0) % Plt Count 167 (150-450) K/mm3 MPV 10.0 H (6-9.5) fl Gran % 82.0 H (36.0-66.0) % Lymphocytes % 10.1 L (24.0-44.0) % Monocytes % 7.5 (0.0-12.0) % Eosinophils % 0.2 (0.00-5.0) % Basophils % 0.2 (0.0-0.4) % Basophils # 0.01 (0-0.4) Sodium 132 L (136-145) mEq/L Potassium 4.6 (3.5-5.1) mEq/L Chloride 100 (98-107) mEq/L Carbon Dioxide 19.4 L (21-32) mEq/L Anion Gap 17.3 H (5-15) MEQ/L BUN 18 (9-20) mg/dL Creatinine 1.36 H (0.55-1.30) mg/dl Estimated GFR 54 ML/MIN Glucose 178 H (70-110) MG/DL Calcium 9.0 (8.5-10.1) mg/dL Total Bilirubin 0.50 (0.2-1.0) mg/dL AST 18 (15-37) U/L ALT 15 (12-78) U/L Alkaline Phosphatase 52 (46-116) U/L Serum Total Protein 7.5 (6.4-8.2) gm/dL Albumin 3.5 (3.4-5.0) g/dL Amylase 69 (25-115) U/L Lipase 243 (73-393) U/L Ur Collection Type CLEAN CATCH Urine Color YELLOW (YELLOW) Urine Appearance CLEAR (CLEAR) Urine pH 5.0 (5-6) Ur Specific [place] 1.015 (1.005-1.025) Urine Protein NEGATIVE (Negative) Urine Ketones NEGATIVE (NEGATIVE) Urine Blood NEGATIVE (0-5) Gray/ul Urine Nitrite NEGATIVE (NEGATIVE) Urine Bilirubin NEGATIVE (NEGATIVE) Urine Urobilinogen NORMAL (0-1) mg/dL Ur Leukocyte Esterase NEGATIVE (NEGATIVE) Urine Culture Reflexed NO (NO) Urine Glucose NEGATIVE (NEGATIVE) mg/dL Specimen Received 09-08 - Progress Progress: improved Progress Note: 09/08/17 09:37 ADMINISTERED IV NORMAL SALINE 100ML/HR, ZOFRAN 4MG, MORPHINE 6MG IV Counseled pt/family regarding: lab results, diagnosis, need for follow-up, rad results - Departure Time of Disposition: 11:00 Departure Disposition: Home Clinical Impression: CHRONIC LOW BACK PAIN, BILATERAL NEPHROLITHIASIS Condition: Stable Critical Care Time: No Referrals: RONALD ZUÑIGA MD [Primary Care Provider] - Additional Instructions: FOLLOWUP WITH YOUR PRIMARY CARE PROVIDER FOR EVALUATION, TREATMENT PHYSICAL THERAPY REFERRAL. ULTRAM 50MG EVERY 6 HOURS FOR PAIN NEEDED. Prescriptions: Tramadol HCl 50 mg [Ultram 50 mg] 50 mg PO BID #20 tablet
[2017-09-08 09:39] LABS: ALBUMIN 3.5 g/dL (3.4-5.0); ANION GAP 17.3 MEQ/L (5-15); BILIRUBIN,TOTAL 0.5 mg/dL (0.2-1.0); Carbon Dioxide 19.4 mEq/L (21-32); Potassium 4.6 mEq/L (3.5-5.1); Total Protein 7.5 gm/dL (6.4-8.2)
[2017-09-08 10:15] LABS: ADD URINE CULTURE? NO (NO); Bilirubin NEGATIVE (NEGATIVE); Blood NEGATIVE Ery/ul (0-5); COMPLETE URINE MICROSCOPIC? NO; Collection Type CLEAN CATCH; Glucose NEGATIVE (NEGATIVE); Leukocyte Esterase NEGATIVE (NEGATIVE)
[2017-09-08 10:47] VITALS: BP 114/57; PULSE 77
[2017-09-08 10:49] VITALS: O2SAT 98
--- NOTE | 2017-09-08 16:52 | XRAY ---
Indication: Flank pain. Multiple contiguous axial images obtained through the abdomen and pelvis without contrast as ordered. Comparison: None Lung bases demonstrates minimal bibasilar dependent atelectasis/scarring. Also tiny bibasilar blebs. No infiltrate or effusion. Heart is not enlarged. Small hiatal hernia. Stomach and bowel loops appear nonobstructed. There is dense material in the distal small bowel and throughout the colon either ingested medication versus barium. Previous appendectomy. No free fluid/air. Tiny punctate nonobstructing bilateral renal calculi. Bilateral renal cysts, largest right midpole measuring 2 cm. Hepatic/splenic calcified granulomas. Mild fatty liver. Enlarged prostate gland impresses on the base of the bladder. Remaining liver, gallbladder, pancreas, spleen, adrenal glands, kidneys, ureters, and bladder appear unremarkable for noncontrast exam. 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 Additional bilateral Osseous structures intact with mild degenerative changes throughout the spine. Impression: 1. Nonobstructing punctate bilateral renal calculi. 2. Fatty liver, small hiatal hernia, bilateral renal cysts, small distal AAA, and evidence for old granulomatous disease. Comment: Preliminary interpretation was made by [facility]. No critical discrepancy. CTDI 20.38
== END 2017-09-08 11:05 | disposition home or self-care (01) ==
LOC: ED 08:28
DX: M54.5 Low back pain (principal); G89.29 Other chronic pain; N20.0 Calculus of kidney; I50.9 Heart failure, unspecified; J44.9 Chronic obstructive pulmonary disease, unspecified; Z79.899 Other long term (current) drug therapy
CPT/HCPCS: 36000; 36415; 74176; 80053; 81002; 82150; 83690; 85025; 96360; 96361; 96374; 96375; 99284; J2270; J2405

== ENCOUNTER 2017-09-18 12:53 | Inpatient (IN) | payer MEDICARE ==
[2017-09-18] MEDS ORDERED: MORPHINE SULFATE 4 MG INJ IM ONE (13:44)
--- NOTE | 2017-09-18 13:44 | ERPHSYRPT ---
- History of Present Illness Time Seen by Provider: 09/18/17 13:24 Source: patient Exam Limitations: no limitations Patient Subjective Stated Complaint: PT STATES HE HAS HAD BACK PAIN FOR THE PAST SEVERAL MONTHS AND HE IS "TIRED OF GETTING THE RUN AROUND". PT STATES HE WANTS TO STAY INPATIENT OR IN THE ASSISTED BECAUSE HE IS UNABLE TO TAKE CARE OF HIMSELF. HE STATES HIS LOWER BACK HURTS ALL THE TIME. Triage Nursing Assessment: PT PINK, WARM, DRY. PT ABLE TO TRANSFER FROM WHEELCHAIR TO Er COT WITH HELP. PT AFEBRILE. Physician History: 77 y/o male comes back to the ER with complaints of lower back pain for the past month. Pt was in [place] for a GI bug for 3 weeks and while in the hospital, patient developed lower back pain. Pt denies any injury to back or falling on his back. Today, patient was using his walker when he fell twice landing on his side. Pt states that the pain has been unbearable. Pt describes the pain as sharp, constant, 10/10, with radiation down both legs and not relieved on tylenol. Pt denies any fever, chills, leg weakness or bowel/urinary incontinence. Timing/Duration: today Method of Injury: fall Quality: sharp Back Pain Location: lumbar spine Back Pain Radiation: upper legs Severity of Pain-Max: severe Severity of Pain-Current: severe Modifying Factors: Improves With: nothing Allergies/Adverse Reactions: No Known Drug Allergies Allergy (Verified 09/18/17 13:12) Home Medications: Carvedilol 6.25 mg [Coreg 6.25 MG] 6.25 mg PO BID 08/08/17 [History] Cholecalciferol (Vitamin D3) [Vitamin D3] 5,000 unit PO DAILY 08/08/17 [History] Cyanocobalamin (Vitamin B-12) [Vitamin B12] 5,000 mcg PO DAILY 08/08/17 [History ] Potassium Chloride 10 Meq Tab* [Klor Con 10 MEQ] 10 meq PO TID 08/08/17 [ History] Spironolactone 25 mg [Aldactone 25 MG] 25 mg PO DAILY 08/08/17 [History] Tamsulosin HCl 0.4 mg [Flomax 0.4 MG] 0.4 mg PO DAILY 08/08/17 [History] Rivaroxaban [Xarelto] 20 mg PO DAILY 08/22/17 [History] Simvastatin 20Mg [Zocor 20Mg] 10 mg PO DAILY 08/22/17 [History] Amiodarone HCl 200 mg PO BID 09/18/17 [History] Budesonide/Formoterol Fumarate [Symbicort 160-4.5 Mcg Inhaler] 10.2 gm IH BID [History] Hx Tetanus, Diphtheria Vaccination/Date Given: Yes (UP TO DATE) Hx Influenza Vaccination/Date Given: Yes Hx Pneumococcal Vaccination/Date Given: Yes Immunizations Up to Date: Yes - Review of Systems Constitutional: No Fever, No Chills Eyes: No Symptoms Ears, Nose, & Throat: No Symptoms Respiratory: No Cough, No Dyspnea Cardiac: No Chest Pain, No Edema, No Syncope Abdominal/Gastrointestinal: No Abdominal Pain, No Nausea, No Vomiting, No Diarrhea Genitourinary Symptoms: No Dysuria Musculoskeletal: Back Pain, No Neck Pain Skin: No Rash Neurological: No Dizziness, No Focal Weakness, No Sensory Changes Psychological: No Symptoms Endocrine: No Symptoms All Other Systems: Reviewed and Negative - Past Medical History Pertinent Past Medical History: Yes Cardiac History: Coronary Artery Disease Respiratory History: COPD - Past Surgical History Past Surgical History: Yes Cardiac: Angioplasty, Cardiac Catheterization, Cardiac Stent, Internal Defibrillator, Pacemaker Gastrointestinal: Appendectomy - Social History Smoking Status: Former smoker Exposure to second hand smoke: No Drug Use: none Patient Lives Alone: No - Nursing Vital Signs Nursing Vital Signs: Initial Vital Signs Temperature 98.8 F 09/18/17 13:03 Pulse Rate 88 09/18/17 13:03 Respiratory Rate 18 09/18/17 13:03 Blood Pressure 143/87 09/18/17 13:03 O2 Sat by Pulse Oximetry 98 09/18/17 13:03 Pain Scale Pain Intensity 4 - Physical Exam General Appearance: moderate distress, alert Eye Exam: PERRL/EOMI, eyes nml inspection Neck Exam: normal inspection, non-tender, supple, full range of motion, No meningismus, No midline tenderness Respiratory Exam: normal breath sounds, lungs clear, No respiratory distress Cardiovascular Exam: regular rate/rhythm, normal heart sounds Gastrointestinal Exam: soft, No tenderness, No mass Back Exam: vertebral tenderness (lumbar spine tenderness), decreased range of motion Extremity Exam: normal inspection, normal range of motion, No calf tenderness, No pedal edema Neurologic Exam: alert, oriented x 3, cooperative, mesh worker II-XII nml as tested, normal mood/affect, nml station & gait, sensation nml, No motor deficits Skin Exam: normal color, warm, dry, No rash SpO2: 98 Oxygen Delivery: Room Air - Course Nursing assessment & vital signs reviewed: Yes Ordered Tests: Active Orders 24 hr Category Date Time Status IV Insertion STAT Care 09/18/17 14:48 Active CBC W DIFF Stat Lab 09/18/17 13:45 Completed CMP Stat Lab 09/18/17 13:45 Completed CULTURE,URINE Stat Lab 09/18/17 13:37 Received UA W/ MICROSCOPIC Stat Lab 09/18/17 13:37 Completed Medication Summary Generic Name Dose Route Start Last Admin Trade Name Freq PRN Reason Stop Dose Admin Sodium Chloride 1,000 mls @ 100 mls/hr 09/18/17 15:00 09/18/17 14:53 Sodium Chloride 0.9% 1000 Ml IV 10/18/17 14:59 100 mls/hr .Q10H STEPHANIE Administration Discontinued Medications Generic Name Dose Route Start Last Admin Trade Name Freq PRN Reason Stop Dose Admin Famotidine 20 mg 09/18/17 14:55 09/18/17 15:04 Pepcid 20 Mg Vial IV 09/18/17 14:56 20 mg STAT ONE Administration Famotidine Confirm 09/18/17 15:04 Pepcid 20 Mg Vial Administered 09/18/17 15:05 Dose 20 mg IV .STK-MED ONE Morphine Sulfate 4 mg 09/18/17 13:44 09/18/17 13:48 Morphine Sulfate 4 Mg Inj IM 09/18/17 13:45 4 mg STAT ONE Administration Morphine Sulfate Confirm 09/18/17 13:47 Morphine Sulfate 4 Mg Inj Administered 09/18/17 13:48 Dose 4 mg .ROUTE .STK-MED ONE Lab/Rad Data: Laboratory Result Diagrams 09/18/17 13:45 09/18/17 13:45 Laboratory Results 09/18/17 09/18/17 09/18/17 Range/Units 13:45 13:45 13:37 WBC 9.7 (4.0-10.5) K/mm3 RBC 4.06 L (4.1-5.6) M/mm3 Hgb 11.5 L (12.5-18.0) gm/dl Hct 35.9 L (42-50) % MCV 88.4 (78-100) fl MCH 28.3 (26-32) pg MCHC 32.0 (32-36) g/dl RDW 14.1 H (11.5-14.0) % Plt Count 308 (150-450) K/mm3 MPV 10.7 H (6-9.5) fl Gran % 86.8 H (36.0-66.0) % Lymphocytes % 6.8 L (24.0-44.0) % Monocytes % 6.2 (0.0-12.0) % Eosinophils % 0.1 (0.00-5.0) % Basophils % 0.1 (0.0-0.4) % Basophils # 0.01 (0-0.4) Sodium 128 L (136-145) mEq/L Potassium 5.5 H (3.5-5.1) mEq/L Chloride 93 L (98-107) mEq/L Carbon Dioxide 22.2 (21-32) mEq/L Anion Gap 18.4 H (5-15) MEQ/L BUN 22 H (9-20) mg/dL Creatinine 1.33 H (0.55-1.30) mg/dl Estimated GFR 55 ML/MIN Glucose 168 H (70-110) MG/DL Calcium 9.2 (8.5-10.1) mg/dL Total Bilirubin 0.60 (0.2-1.0) mg/dL AST 30 (15-37) U/L ALT 42 (12-78) U/L Alkaline Phosphatase 61 (46-116) U/L Serum Total Protein 7.7 (6.4-8.2) gm/dL Albumin 2.8 L (3.4-5.0) g/dL Ur Collection Type VOID Urine Color YELLOW (YELLOW) Urine Appearance CLEAR (CLEAR) Urine pH 5.0 (5-6) Ur Specific [place] 1.020 (1.005-1.025) Urine Protein TRACE (Negative) Urine Ketones MODERATE (NEGATIVE) Urine Blood 5-10 (0-5) Gray/ul Urine Nitrite NEGATIVE (NEGATIVE) Urine Bilirubin NEGATIVE (NEGATIVE) Urine Urobilinogen NORMAL (0-1) mg/dL Ur Leukocyte Esterase NEGATIVE (NEGATIVE) Urine Microscopic RBC 0-2 (0-2) /HPF Urine Microscopic WBC 0-2 (0-5) /HPF Ur Epithelial Cells RARE (FEW) /HPF Urine Bacteria RARE (NEGATIVE) /HPF Hyaline Casts 5-10 (0-2) /LPF Urine Mucus SLIGHT (NEGATIVE) /HPF Urine Culture Reflexed YES (NO) Urine Glucose NEGATIVE (NEGATIVE) mg/dL Specimen Received 09/18/17 1330 - Progress Progress: pain not gone completely Progress Note: 09/18/17 15:19 Pt states that his pain is similar after being given morphine 4mg IM X 1 dose. The patient appears in no distress lying comfortably in bed. The patient does have a Na of 128 which is lower than Sunday which was 132. Pt was started on maintenance NS fluids. The rest of the labs are unremarkable. Pt has been admitted to Dr Soliman for hyponatremia and back pain. - Departure Time of Disposition: 15:21 Departure Disposition: In-patient Admission Clinical Impression: Hyponatremia Back pain Qualifiers: Back pain location: low back pain Chronicity: unspecified Back pain laterality : unspecified Sciatica presence: without sciatica Qualified Code(s): M54.5 - Low back pain Condition: Stable Critical Care Time: No Referrals: RONALD ZUÑIGA MD [Primary Care Provider] -
[2017-09-18] MEDS ORDERED: MORPHINE SULFATE 4 MG INJ ONE (13:47)
[2017-09-18 14:06] LABS: Appearance CLEAR (CLEAR); Glucose NEGATIVE (NEGATIVE); Leukocyte Esterase NEGATIVE (NEGATIVE); Nitrite NEGATIVE (NEGATIVE); Protein,Urine Dip TRACE (Negative)
[2017-09-18 14:07] LABS: Bilirubin NEGATIVE (NEGATIVE); Ketones MODERATE (NEGATIVE); Urobilinogen NORMAL mg/dL (0-1)
[2017-09-18 14:14] LABS: Bacteria RARE /HPF (NEGATIVE); Epithelial Cells RARE /HPF (FEW); Mucus SLIGHT /HPF (NEGATIVE); WBC 0-2 /HPF (0-5)
[2017-09-18 14:36] LABS: ALBUMIN 2.8 g/dL (3.4-5.0); ANION GAP 18.4 MEQ/L (5-15); BILIRUBIN,TOTAL 0.6 mg/dL (0.2-1.0); Calcium 9.2 mg/dL (8.5-10.1); Carbon Dioxide 22.2 mEq/L (21-32); Creatinine 1 1.33 mg/dl (0.55-1.30); Potassium 5.5 mEq/L (3.5-5.1); Total Protein 7.7 gm/dL (6.4-8.2)
[2017-09-18] MEDS: Sodium Chloride 0.9% 1000 ML 1,000 ML IV SCH (14:53)
[2017-09-18] MEDS ORDERED: Pepcid 20 MG VIAL IV ONE ×2 (14:55→15:04)
[2017-09-18 14:58] LABS: BASOPHIL % 0.1 % (0.0-0.4); Basophil (Absolute #) 0.01 (0-0.4); Eosinophil % 0.1 % (0.00-5.0); Eosinophil (Absolute #) 0.01 (0-0.5); Granulocyte Absolute (ANC) 8.45 (1.4-6.9); Granulocytes % 86.8 % (36.0-66.0); Hematocrit 35.9 % (42-50); Hemoglobin 11.5 gm/dl (12.5-18.0); Lymphocyte (Absolute #) 0.66 (1.0-4.6); Lymphocytes % 6.8 % (24.0-44.0); Mean Cell Volume 88.4 fl (78-100); Mean Corpuscular Hemoglobin 28.3 pg (26-32); Mean Platelet Volume 10.7 fl (6-9.5); Monocytes % 6.2 % (0.0-12.0); Platelet Count 308 K/mm3 (150-450); Red Blood Count 4.06 M/mm3 (4.1-5.6); Red Cell Distribution Width 14.1 % (11.5-14.0); White Blood Count 9.7 K/mm3 (4.0-10.5)
[2017-09-18] MEDS: MORPHINE SULFATE 4 MG INJ IV PRN (20:24)
[2017-09-19] MEDS: Sodium Chloride 0.9% 1000 ML 1,000 ML IV SCH ×2 (00:32→10:22)
[2017-09-19] MEDS: MORPHINE SULFATE 4 MG INJ IV PRN ×2 (04:29→08:59)
[2017-09-19 05:39] LABS: BASOPHIL % 0.1 % (0.0-0.4); Basophil (Absolute #) 0.01 (0-0.4); Eosinophil % 0.4 % (0.00-5.0); Eosinophil (Absolute #) 0.03 (0-0.5); Granulocytes % 80.4 % (36.0-66.0); Hematocrit 33.2 % (42-50); Hemoglobin 10.7 gm/dl (12.5-18.0); Lymphocyte (Absolute #) 0.65 (1.0-4.6); Lymphocytes % 9.5 % (24.0-44.0); Mean Cell Volume 88.1 fl (78-100); Mean Corpuscular Hgb Concent. 32.2 g/dl (32-36); Mean Platelet Volume 10.1 fl (6-9.5); Monocyte (Absolute #) 0.66 (0.0-1.3); Monocytes % 9.6 % (0.0-12.0); Platelet Count 279 K/mm3 (150-450); Red Blood Count 3.77 M/mm3 (4.1-5.6); Red Cell Distribution Width 14.2 % (11.5-14.0); White Blood Count 6.9 K/mm3 (4.0-10.5)
[2017-09-19 05:45] LABS: Mean Corpuscular Hemoglobin 28.3 pg (26-32)
[2017-09-19 06:21] LABS: ANION GAP 14.1 MEQ/L (5-15); BLOOD UREA NITROGEN 18 mg/dL (9-20); CHLORIDE 98 mEq/L (98-107); Calcium 8.5 mg/dL (8.5-10.1); Carbon Dioxide 23.5 mEq/L (21-32); Creatinine 1 1.09 mg/dl (0.55-1.30); EST GLOMERULAR FILTRATION RATE > 60 ML/MIN; Glucose 165 MG/DL (70-110); Potassium 4.5 mEq/L (3.5-5.1); SODIUM 131 mEq/L (136-145)
[2017-09-19] MEDS: Advair Hfa 230/21 Mcg COMMON CANISTER IH SCH ×2 (07:13→17:15)
[2017-09-19] MEDS: Zofran 4 MG/2 ML VIAL IV PRN (08:11)
[2017-09-19] MEDS ORDERED: CITROMA 296 ML PO SCH (09:23)
--- NOTE | 2017-09-19 09:23 | PCM.HP ---
History of Present Illness - Chief Complaint Chief Complaint: low sodium History of Present Illness: is a 77 year old male who presented with severe low back pain, inability to ambulate. he reports his pain began while he was admitted to [facility] around 6 weeks ago, has had significant problems ambulating and is unable to care for himself. was found to have hyponatremia, he also hasn' t had a bowel movement for several days so feels distended. no fever, no weakness or numbness to legs. - Review of Systems Constitutional: No Fever, No Chills Respiratory: No Symptoms Cardiac: No Chest Pain, No Edema, No Syncope Abdominal/Gastrointestinal: Abdominal Pain, Constipation, No Nausea, No Vomiting , No Diarrhea Genitourinary Symptoms: No Symptoms Musculoskeletal: Back Pain Skin: No Rash All Other Systems: Reviewed and Negative Medications & Allergies Home Medications: Home Medication List Carvedilol 6.25 mg [Coreg 6.25 MG] 6.25 mg PO BID 08/08/17 [History Confirmed 09/18/17] Cholecalciferol (Vitamin D3) [Vitamin D3] 5,000 unit PO DAILY 08/08/17 [History Confirmed 09/18/17] Cyanocobalamin (Vitamin B-12) [Vitamin B12] 5,000 mcg PO DAILY 08/08/17 [ History Confirmed 09/18/17] Potassium Chloride 10 Meq Tab* [Klor Con 10 MEQ] 10 meq PO TID 08/08/17 [ History Confirmed 09/18/17] Spironolactone 25 mg [Aldactone 25 MG] 25 mg PO DAILY 08/08/17 [History Confirmed 09/18/17] Tamsulosin HCl 0.4 mg [Flomax 0.4 MG] 0.4 mg PO DAILY 08/08/17 [History Confirmed 09/18/17] Rivaroxaban [Xarelto] 20 mg PO DAILY 08/22/17 [History Confirmed 09/18/17] Simvastatin 20Mg [Zocor 20Mg] 10 mg PO HS 08/22/17 [History Confirmed ] Amiodarone HCl 200 mg PO BID 09/18/17 [History Confirmed 09/18/17] Benazepril HCl [Lotensin] 20 mg PO DAILY 09/18/17 [History Confirmed 09/18/17] Budesonide/Formoterol Fumarate [Symbicort 160-4.5 Mcg Inhaler] 10.2 gm IH BID [History Confirmed 09/18/17] Tramadol HCl 50 mg [Ultram 50 mg] 50 mg PO Q6HPRN PRN 09/18/17 [History Confirmed 09/18/17] Allergies/Adverse Reactions: Allergies Allergy/AdvReac Type Severity Reaction Status Date / Time No Known Drug Allergies Allergy Verified 09/18/17 13:12 - Past Medical History Past Medical History: Yes Neurological History: No Pertinent History ENT History: No Pertinent History Cardiac History: Coronary Artery Disease Respiratory History: CHF, COPD Endocrine Medical History: No Pertinent History Musculoskelatal History: Arthritis GI Medical History: No Pertinent History Pyscho-Social History: No Pertinent History Male Reproductive Disorders: Prostate Problems - Past Surgical History Past Surgical History: Yes Neuro Surgical History: No Pertinent History Cardiac History: Angioplasty, Cardiac Catheterization, Cardiac Stent, Internal Defibrillator, Pacemaker Respiratory Surgery: No Pertinent History GI Surgical History: Appendectomy Genitourinary Surgical Hx: No Pertinent History Musculskeletal Surgical Hx: No Pertinent History Male Surgical History: No Pertinent History - Social History Smoking Status: Former smoker Exposure to second hand smoke: No Alcohol: Occasionally Drug Use: none - Physical Exam Vital Signs: Vital Signs - 24 hr Temp Pulse Resp BP Pulse Ox 09/19/17 07:14 78 18 97 09/19/17 07:02 97.9 F 80 20 128/66 97 09/19/17 04:00 18 09/19/17 03:00 97.8 F 96 H 18 125/57 98 09/19/17 00:00 16 09/18/17 23:00 97.9 F 76 16 118/59 97 09/18/17 22:04 74 18 96 09/18/17 20:00 17 09/18/17 19:58 98.0 F 85 17 131/66 95 09/18/17 16:50 98.2 F 86 18 122/65 94 L 09/18/17 16:40 98.2 F 86 18 122/65 94 L 09/18/17 16:07 98.2 F 86 18 122/65 94 L 09/18/17 15:58 98.2 F 86 18 122/65 94 L 09/18/17 15:50 98.6 F 86 18 122/65 94 L 09/18/17 15:39 98 F 84 16 136/66 98 09/18/17 15:21 98 09/18/17 15:12 98.6 F 82 16 115/59 98 09/18/17 14:44 86 16 106/68 94 L 09/18/17 13:51 98.8 F 84 16 135/72 97 09/18/17 13:03 98.8 F 88 18 143/87 98 Oxygen-Last 24 hours O2 Percentage 2 Liters = 28% O2 Percentage 2 Liters = 28% O2 Percentage 2 Liters = 28% O2 Percentage 2 Liters = 28% O2 Percentage 2 Liters = 28% General Appearance: moderate distress Neurologic Exam: alert, oriented x 3 Eye Exam: PERRL/EOMI, eyes nml inspection Respiratory Exam: normal breath sounds, lungs clear, No respiratory distress Cardiovascular Exam: regular rate/rhythm, normal heart sounds, normal peripheral pulses Gastrointestinal/Abdomen Exam: soft, normal bowel sounds, No tenderness, No mass Back Exam: decreased range of motion, point tenderness, No rash Extremity Exam: normal inspection, normal range of motion, pelvis stable Skin Exam: normal color, warm, dry, No rash Additional Findings: 09/19/17 09:20 DTR 2+ BLE, sensation intact BLE Results - Labs Lab/Micro Results: Lab Results-Last 24 Hours 09/19/17 09/19/17 Range/Units 05:10 05:10 WBC 6.9 (4.0-10.5) K/mm3 RBC 3.77 L (4.1-5.6) M/mm3 Hgb 10.7 L (12.5-18.0) gm/dl Hct 33.2 L (42-50) % MCV 88.1 (78-100) fl MCH 28.3 (26-32) pg MCHC 32.2 (32-36) g/dl RDW 14.2 H (11.5-14.0) % Plt Count 279 (150-450) K/mm3 MPV 10.1 H (6-9.5) fl Gran % 80.4 H (36.0-66.0) % Lymphocytes % 9.5 L (24.0-44.0) % Monocytes % 9.6 (0.0-12.0) % Eosinophils % 0.4 (0.00-5.0) % Basophils % 0.1 (0.0-0.4) % Basophils # 0.01 (0-0.4) Sodium 131 L (136-145) mEq/L Potassium 4.5 (3.5-5.1) mEq/L Chloride 98 (98-107) mEq/L Carbon Dioxide 23.5 (21-32) mEq/L Anion Gap 14.1 (5-15) MEQ/L BUN 18 (9-20) mg/dL Creatinine 1.09 (0.55-1.30) mg/dl Estimated GFR > 60 ML/MIN Glucose 165 H (70-110) MG/DL Calcium 8.5 (8.5-10.1) mg/dL - Other Procedures and Tests Respiratory Therapy 09/18/17 22:03 Oxygen NASAL CANNULA 2 lpm 09/19/17 07:00 Respiratory MDI BID Assessment/Plan (1) Hyponatremia Current Visit: Yes Status: Acute Assessment & Plan: improved, will reduce IV fluid rate due to hx of chf, repeat in the am Code(s): E87.1 - HYPO-OSMOLALITY AND HYPONATREMIA (2) Constipation Current Visit: Yes Status: Acute Assessment & Plan: mag citrate Code(s): K59.00 - CONSTIPATION, UNSPECIFIED (3) Back pain Current Visit: Yes Status: Acute Qualifiers: Back pain location: low back pain Chronicity: unspecified Back pain laterality: unspecified Sciatica presence: without sciatica Qualified Code(s ): M54.5 - Low back pain Assessment & Plan: severe, will evaluate with MRI Code(s): M54.9 - DORSALGIA, UNSPECIFIED (4) CHF (congestive heart failure) Current Visit: No Status: Acute Assessment & Plan: currently stable, continue home meds and monitor closely Code(s): I50.9 - HEART FAILURE, UNSPECIFIED
[2017-09-19] MEDS: Lotensin 10 MG PO SCH (12:26)
[2017-09-19] MEDS: Coreg 6.25 MG PO SCH ×2 (12:26→21:17)
[2017-09-19] MEDS: Flomax 0.4 MG PO SCH (12:27)
[2017-09-19] MEDS: Aldactone 25 MG PO SCH (12:27)
[2017-09-19] MEDS: XARELTO 10 MG TABLET PO SCH (12:27)
[2017-09-19] MEDS: Klor Con 10 MEQ PO SCH ×3 (12:27→21:17)
[2017-09-19] MEDS: Cordarone 200 MG PO SCH ×2 (12:28→21:17)
[2017-09-19] MEDS: Zocor 10MG PO SCH (21:17)
[2017-09-20] MEDS: MORPHINE SULFATE 4 MG INJ IV PRN ×2 (03:43→20:31)
[2017-09-20] MEDS: Sodium Chloride 0.9% 1000 ML 1,000 ML IV SCH (05:32)
[2017-09-20 05:52] LABS: BASOPHIL % 0.3 % (0.0-0.4); Basophil (Absolute #) 0.02 (0-0.4); Eosinophil % 0.9 % (0.00-5.0); Eosinophil (Absolute #) 0.06 (0-0.5); Granulocyte Absolute (ANC) 4.66 (1.4-6.9); Granulocytes % 73.6 % (36.0-66.0); Hematocrit 30.5 % (42-50); Hemoglobin 9.8 gm/dl (12.5-18.0); Lymphocyte (Absolute #) 0.89 (1.0-4.6); Lymphocytes % 14.1 % (24.0-44.0); Mean Cell Volume 88.7 fl (78-100); Mean Corpuscular Hgb Concent. 32.1 g/dl (32-36); Mean Platelet Volume 9.6 fl (6-9.5); Monocytes % 11.1 % (0.0-12.0); Platelet Count 278 K/mm3 (150-450); Red Blood Count 3.44 M/mm3 (4.1-5.6); Red Cell Distribution Width 14.1 % (11.5-14.0); White Blood Count 6.3 K/mm3 (4.0-10.5)
[2017-09-20 06:03] LABS: Mean Corpuscular Hemoglobin 28.4 pg (26-32)
[2017-09-20 06:42] LABS: ANION GAP 12.6 MEQ/L (5-15); BLOOD UREA NITROGEN 15 mg/dL (9-20); CHLORIDE 100 mEq/L (98-107); Calcium 8.6 mg/dL (8.5-10.1); Carbon Dioxide 25.9 mEq/L (21-32); Creatinine 1 1.01 mg/dl (0.55-1.30); EST GLOMERULAR FILTRATION RATE > 60 ML/MIN; Glucose 141 MG/DL (70-110); Potassium 4.8 mEq/L (3.5-5.1); SODIUM 134 mEq/L (136-145)
[2017-09-20] MEDS: Advair Hfa 230/21 Mcg COMMON CANISTER IH SCH ×2 (07:05→18:56)
--- NOTE | 2017-09-20 08:09 | PCM.NOTE ---
Date and Time: 09/20/17806 Subjective Assessment: patient still with severe low back pain, unable to function at this time. he requires the assistance of 2 people to help transfer Objective Exam General Appearance: thin Respiratory Exam: normal breath sounds, lungs clear, No respiratory distress Cardiovascular Exam: regular rate/rhythm, normal heart sounds Gastrointestinal/Abdomen Exam: soft, No tenderness, No mass Extremity Exam: normal inspection, normal range of motion OBJECTIVE DATA Vital Signs: Vital Signs - 24 hr Temp Pulse Resp BP Pulse Ox 09/20/17 08:00 97.5 F 60 20 100/59 100 09/20/17 07:06 62 16 98 09/20/17 04:00 98.0 F 64 16 92/55 95 09/20/17 00:00 97.6 F 64 17 91/53 98 09/19/17 20:00 98.2 F 67 15 91/55 98 09/19/17 17:16 67 18 97 09/19/17 16:03 97.7 F 82 20 130/74 96 09/19/17 16:00 20 09/19/17 12:00 20 09/19/17 11:19 98 F 76 20 126/60 96 Oxygen-Last 24 hours O2 Percentage 2 Liters = 28% O2 Percentage 2 Liters = 28% O2 Percentage 2 Liters = 28% O2 Percentage 2 Liters = 28% Pain Assessment - Last Documented Pain Intensity 5 Pain Scale Used 0-10 Pain Scale Intake and Output: Intake & Output 09/17/17 09/18/17 09/19/17 09/20/17 11:59 11:59 11:59 11:59 Intake Total 1903 3769 Output Total 600 1250 Balance 1303 2359 Weight 70.931 kg Lab Results: Lab Results-Last 24 Hours 09/20/17 09/20/17 Range/Units 05:45 05:45 WBC 6.3 (4.0-10.5) K/mm3 RBC 3.44 L (4.1-5.6) M/mm3 Hgb 9.8 L (12.5-18.0) gm/dl Hct 30.5 L (42-50) % MCV 88.7 (78-100) fl MCH 28.4 (26-32) pg MCHC 32.1 (32-36) g/dl RDW 14.1 H (11.5-14.0) % Plt Count 278 (150-450) K/mm3 MPV 9.6 H (6-9.5) fl Gran % 73.6 H (36.0-66.0) % Lymphocytes % 14.1 L (24.0-44.0) % Monocytes % 11.1 (0.0-12.0) % Eosinophils % 0.9 (0.00-5.0) % Basophils % 0.3 (0.0-0.4) % Basophils # 0.02 (0-0.4) Sodium 134 L (136-145) mEq/L Potassium 4.8 (3.5-5.1) mEq/L Chloride 100 (98-107) mEq/L Carbon Dioxide 25.9 (21-32) mEq/L Anion Gap 12.6 (5-15) MEQ/L BUN 15 (9-20) mg/dL Creatinine 1.01 (0.55-1.30) mg/dl Estimated GFR > 60 ML/MIN Glucose 141 H (70-110) MG/DL Calcium 8.6 (8.5-10.1) mg/dL Radiology Exams: Radiology Procedures Category Date Time Status LUMBAR SPINE W/O [CT] Routine Exams 09/20/17 08:07 Ordered Multi-Disciplinary Progress Notes: Multi-Disciplinary Progress Notes 09/19/17 11:41 Case Management Note by Jessica Barber FAXED LOC AND UPDATED CLINICALS TO IGNACIO AT [facility], [phone]. SHE STATES THERE IS A BED READY FOR THE PATIENT ON DISCHARGE. Initialized on 09/19/17 11:41 - END OF NOTE 09/19/17 11:00 (created 09/19/17 16:07) Case Management Note by Ela Lagunas [facility] WILL HAVE BED AVAILABLE WHEN MD READY FOR DISCHARGE. Initialized on 09/19/17 16:07 - END OF NOTE 09/19/17 09:05 (created 09/19/17 14:46) Case Management Note by Ela Lagunas CONTINUE TO PLAN FOR TRANSITION TO [facility] ON DISCHARGE FOR CONTINUED SUPPORT. DECLINED ADDNL NEEDS. WILL FOLLOW. Initialized on 09/19/17 14:46 - END OF NOTE Assessment/Plan (1) Hyponatremia Current Visit: Yes Status: Acute Assessment & Plan: improving Code(s): E87.1 - HYPO-OSMOLALITY AND HYPONATREMIA (2) Back pain Current Visit: Yes Status: Acute Qualifiers: Back pain location: low back pain Chronicity: unspecified Back pain laterality: unspecified Sciatica presence: without sciatica Qualified Code(s ): M54.5 - Low back pain Assessment & Plan: unable to do MRI due to AICD, will have reconstruction of lumbar spine from abd/ pelvis CT on 09/08/17 Code(s): M54.9 - DORSALGIA, UNSPECIFIED (3) Constipation Current Visit: Yes Status: Acute Code(s): K59.00 - CONSTIPATION, UNSPECIFIED (4) CHF (congestive heart failure) Current Visit: No Status: Chronic Code(s): I50.9 - HEART FAILURE, UNSPECIFIED
[2017-09-20] MEDS: PERCOCET TABLET 5/325MG PO PRN (09:57)
[2017-09-20] MEDS: Aldactone 25 MG PO SCH (09:57)
[2017-09-20] MEDS: Lotensin 10 MG PO SCH (09:57)
[2017-09-20] MEDS: Cordarone 200 MG PO SCH ×2 (09:58→20:24)
[2017-09-20] MEDS: Coreg 6.25 MG PO SCH ×2 (09:58→20:23)
[2017-09-20] MEDS: Flomax 0.4 MG PO SCH (09:58)
[2017-09-20] MEDS: XARELTO 10 MG TABLET PO SCH (09:58)
[2017-09-20] MEDS: Klor Con 10 MEQ PO SCH ×3 (09:58→20:24)
[2017-09-20] MEDS ORDERED: NON-FORMULARY ITEM (Benazepril Hcl [Lotensin] 20 MG) PO SCH (10:00)
[2017-09-20] MEDS ORDERED: NON-FORMULARY ITEM (Rivaroxaban [Xarelto] 20 MG) PO SCH (10:00)
--- NOTE | 2017-09-20 10:25 | XRAY ---
Indication: Intractable low back pain. Axial, coronal, and sagittal reformatted images of the lumbar spine obtained using the raw data from CT abdomen/pelvis study of September 08, 2017. Comparison: None Axial images demonstrates minimal/mild L2-S1 broad-based disc bulge minimally effacing the thecal sac. Greatest extent at L5-S1 level with a mean AP thecal sac diameter 12 mm. There is also left L5-S1 foraminal stenosis due to broad-based disc osteophyte complex. Same L5-S1 level demonstrates mild opposing endplate left sided bony moth-eaten appearance worrisome for osteomyelitis. Remaining levels negative for large disc herniation or spinal canal stenosis. Facets are symmetric. 3 mm L2 and 8 mm left sacral ala sclerotic lesions probable bone islands. Sagittal and coronal reformatted images demonstrates minimal dextroscoliosis centered at the L3-L4 level. Minimal L5-S1 disc space narrowing. No acute compression fracture or subluxation. CT abdomen/pelvis reported separately. Impression: 1. Abnormal L5-S1 opposing endplate bony moth-eaten appearance. Rule out discitis/osteomyelitis. 2. Mild L2-S1 degenerative disc bulge. Greatest extent at L5-S1 level where there is left foraminal stenosis. 3. Incidental L2 and left sacral ala bone islands. Comment: Telephone report will be given to the ordering clinician, Dr. Antunez immediately following this dictation. CT DI 20.38
[2017-09-20] MEDS: ROCEPHIN 1 Gm-D5w 50 ml Bag** 1 G/50 ML IVPB IV SCH (11:35)
[2017-09-20] MEDS: VANCOCIN 1 GM VIAL*** 0.75 GM in Sodium Chloride 0.9% 250 ML 250 ML IV SCH ×2 (12:08→20:34)
[2017-09-20] MEDS: Zocor 10MG PO SCH (20:23)
[2017-09-21] MEDS: MORPHINE SULFATE 4 MG INJ IV PRN ×5 (03:04→22:45)
[2017-09-21] MEDS: Sodium Chloride 0.9% 1000 ML 1,000 ML IV SCH (06:28)
[2017-09-21] MEDS: Advair Hfa 230/21 Mcg COMMON CANISTER IH SCH ×2 (07:12→19:33)
[2017-09-21] MEDS: Lotensin 10 MG PO SCH (08:12)
[2017-09-21] MEDS: Flomax 0.4 MG PO SCH (08:12)
[2017-09-21] MEDS: ROCEPHIN 1 Gm-D5w 50 ml Bag** 1 G/50 ML IVPB IV SCH (08:12)
[2017-09-21] MEDS: Klor Con 10 MEQ PO SCH ×3 (08:12→22:45)
[2017-09-21] MEDS: XARELTO 10 MG TABLET PO SCH (08:12)
[2017-09-21] MEDS: Coreg 6.25 MG PO SCH ×2 (08:12→22:46)
[2017-09-21] MEDS: Cordarone 200 MG PO SCH ×2 (08:12→22:46)
[2017-09-21] MEDS: Aldactone 25 MG PO SCH (08:13)
--- NOTE | 2017-09-21 08:13 | CONS ---
CONSULT DATE: 09/20/2017 REASON FOR CONSULT: Low back pain. HISTORY: The patient is a 77 year-old white male with low back pain, history of virus-like attack or belly pain with treatment at [facility] over the last six weeks or so. Recent admission to the hospital due to worsening back pain. He cannot move without intractable pain particularly with twisting or sitting up from supine position. The patient's pain is essentially low back, occasionally is radiating subjectively into the one or both legs. It is not doing so at the current time. PHYSICAL EXAMINATION: The patient's lumbar spine is not swollen, red, inflamed, not particularly tender to palpation but does have severe back pain in the lower lumbar area with change in position and movement. Lower extremity exam is unremarkable. Leg lengths are roughly equal. Pelvic sites are roughly even. Reflexes +2/4 patellar and Achilles. No soft tissue atrophy or hypertrophy is appreciated. CT has been reviewed and shows erosion in the superior endplate of the S1 endplate and the inferior endplate of L5 anteriorly as well. No gross disc changes are really appreciated based on the sagittal cut of the CT. Sed rate is high at 78. However, his blood glucose is 180 or so. His white blood cell count is not elevated. He is afebrile. IMPRESSION: 1) Low back pain without radiculopathy. 2) L5-S1 degenerative disc disease and spondylosis and foraminal nerve encroachment L5-S1. 3) Discitis, osteomyelitis L5-S1 likely. PLAN: PICC line and IV antibiotics is khan. Sampling of the bone lesion and/or disc area would be ideal. However, IV antibiotics have already been in play and probably the utility of a sampling such as a biopsy would be unpredictable. Consideration for Pott's disease and tuberculosis has to be considered. The patient interestingly enough has a grandfather that did have this condition and lived I believe lived into the s but the patient is acknowledged no contact with other family member or relevant issues related to this particular patient current scenario is in play. Continue Xarelto. I would encourage the patient to be upright and ambulatory to the level he can to disallow diseases of recumbency such as pneumonia, deep venous thrombosis, pulmonary embolus, blood clots, soft tissue infections and ulcerations, etc. I would recommend a PICC line with broad spectrum antibiotic probably for at least six weeks with or without an appropriate sampling.
--- NOTE | 2017-09-21 08:24 | PCM.NOTE ---
Date and Time: 09/21/17818 Subjective Assessment: patient still with severe low back pain, no new problems or concerns. had a long discussion regarding discitis and osteomyelitis, he understands need for IV antibiotics Objective Exam General Appearance: no apparent distress, alert Respiratory Exam: normal breath sounds, lungs clear, No respiratory distress Cardiovascular Exam: regular rate/rhythm, normal heart sounds Gastrointestinal/Abdomen Exam: soft, No tenderness, No mass Extremity Exam: other (DTR 2+ knee jerk BLE, sensation intact. strength normal but limited due to pain) OBJECTIVE DATA Vital Signs: Vital Signs - 24 hr Temp Pulse Resp BP Pulse Ox 09/21/17 04:00 98.8 F 62 17 94/55 98 09/21/17 00:00 98.6 F 66 14 94/55 96 09/20/17 21:29 68 18 98 09/20/17 20:00 97.6 F 66 17 110/59 100 09/20/17 16:00 98.1 F 72 18 109/72 97 09/20/17 11:45 97.7 F 66 20 98/56 97 Oxygen-Last 24 hours O2 Percentage 2 Liters = 28% O2 Percentage 2 Liters = 28% O2 Percentage 2 Liters = 28% O2 Percentage 2 Liters = 28% Pain Assessment - Last Documented Pain Intensity 10 Pain Scale Used 0-10 Pain Scale Intake and Output: Intake & Output 09/18/17 09/19/17 09/20/17 09/21/17 11:59 11:59 11:59 11:59 Intake Total 4038 Output Total 1800 Balance 2238 Radiology Exams: Radiology Procedures Category Date Time Status LUMBAR COMPLETE (MIN 4 VIEWS) Routine Exams 09/20/17 19:00 Taken Multi-Disciplinary Progress Notes: Multi-Disciplinary Progress Notes 09/20/17 15:55 Physical Therapy Note by Macie Mcfarland PALLIATIVE CARE - ICE PACK TO BACK. PATIENT SEEMED TO BE COMFORTABLE WITH CRYOTHERAPY EVEN THOU HE WAS UNSURE IT WOULD HELP. WILL TRY MOBILIZATION TOMORROW. Initialized on 09/20/17 15:55 - END OF NOTE 09/20/17 13:00 (created 09/20/17 14:16) Case Management Note by Ela Lagunas DISCHARGE PLAN REVIEWED, CONTINUES TO PLAN TO TRANSITION TO [facility] FOR REHAB. DECLINED ADDNL NEEDS. CONTINUES TO C/O PAIN IN BACK WITH MOVEMENT. WILL CONTINUE TO FOLLOW AND ASSESS FOR ALL DC NEEDS. Initialized on 09/20/17 14:16 - END OF NOTE Assessment/Plan (1) Osteomyelitis of lumbar spine Current Visit: Yes Status: Acute Assessment & Plan: continue vanc and rocephin, appreciate ortho input. ESR 73, will follow. Code(s): M46.26 - OSTEOMYELITIS OF VERTEBRA, LUMBAR REGION (2) Discitis of lumbar region Current Visit: Yes Status: Acute Code(s): M46.46 - DISCITIS, UNSPECIFIED, LUMBAR REGION (3) Hyponatremia Current Visit: Yes Status: Acute Assessment & Plan: improved with gentle hydration, will observe. patient had a normal chest xray on 08/22/17, of course in the differential one would have to consider small cell lung ca with bone mets due to presentation but no obvious lung mass on chest xray. Code(s): E87.1 - HYPO-OSMOLALITY AND HYPONATREMIA (4) Constipation Current Visit: Yes Status: Acute Code(s): K59.00 - CONSTIPATION, UNSPECIFIED (5) CHF (congestive heart failure) Current Visit: No Status: Chronic Code(s): I50.9 - HEART FAILURE, UNSPECIFIED
--- NOTE | 2017-09-21 08:38 | XRAY ---
Indication: Low back pain. No known injury. Comparison: None 5 views of the lumbar spine demonstrates 5 lumbar vertebral segments with mild osteopenia, mild multilevel degenerative spondylosis including L5-S1 disc space narrowing and bilateral L5-S1 facet arthropathy. No acute fracture, subluxation, or pars interarticularis defect. Heavy scattered vascular calcifications and calcified splenic granulomas. Impression: Osteopenia, multilevel degenerative spondylosis, and heavy arteriosclerotic disease further detailed on recent CT abdomen/pelvis and CT lumbar spine. Negative acute fracture/subluxation.
[2017-09-21] MEDS: VANCOCIN 1 GM VIAL*** 0.75 GM in Sodium Chloride 0.9% 250 ML 250 ML IV SCH ×2 (09:38→22:45)
[2017-09-21 15:23] LABS: PTT 41.2 SECONDS (24.1-36.1)
--- NOTE | 2017-09-21 21:00 | XRAY ---
Indication: PICC line placement. Comparison: August 22, 2017. Portable chest demonstrates new right arm PICC line with the tip projecting over the distal SVC. Lungs less inflated with new bilateral perihilar interstitial alveolar opacities without consolidation/large effusion. Heart is not enlarged again with left-sided AICD.
[2017-09-21] MEDS: Zocor 10MG PO SCH (22:46)
[2017-09-22] MEDS: MORPHINE SULFATE 4 MG INJ IV PRN ×4 (04:09→20:29)
[2017-09-22 05:59] LABS: BASOPHIL % 0.1 % (0.0-0.4); Basophil (Absolute #) 0.01 (0-0.4); Eosinophil % 1.6 % (0.00-5.0); Eosinophil (Absolute #) 0.12 (0-0.5); Granulocyte Absolute (ANC) 5.87 (1.4-6.9); Granulocytes % 77.3 % (36.0-66.0); Hematocrit 30.3 % (42-50); Hemoglobin 9.6 gm/dl (12.5-18.0); Lymphocyte (Absolute #) 0.93 (1.0-4.6); Lymphocytes % 12.2 % (24.0-44.0); Mean Cell Volume 90.2 fl (78-100); Mean Corpuscular Hgb Concent. 31.7 g/dl (32-36); Mean Platelet Volume 10.1 fl (6-9.5); Monocyte (Absolute #) 0.67 (0.0-1.3); Monocytes % 8.8 % (0.0-12.0); Platelet Count 315 K/mm3 (150-450); Red Blood Count 3.36 M/mm3 (4.1-5.6); Red Cell Distribution Width 14.2 % (11.5-14.0); White Blood Count 7.6 K/mm3 (4.0-10.5)
[2017-09-22 06:05] LABS: Mean Corpuscular Hemoglobin 28.5 pg (26-32)
[2017-09-22 06:23] LABS: ALBUMIN 2.4 g/dL (3.4-5.0); ALKALINE PHOSPHATASE 50 U/L (46-116); ANION GAP 10.9 MEQ/L (5-15); BLOOD UREA NITROGEN 10 mg/dL (9-20); CHLORIDE 101 mEq/L (98-107); Calcium 8.5 mg/dL (8.5-10.1); Carbon Dioxide 24.3 mEq/L (21-32); Creatinine 1 1.03 mg/dl (0.55-1.30); EST GLOMERULAR FILTRATION RATE > 60 ML/MIN; Glucose 154 MG/DL (70-110); Potassium 5.4 mEq/L (3.5-5.1); SGOT/AST 31 U/L (15-37); SGPT/ALT 46 U/L (12-78); SODIUM 131 mEq/L (136-145); Total Protein 6.7 gm/dL (6.4-8.2)
[2017-09-22 06:38] LABS: Erythrocyte Sedimentation Rate 133 mm/hr (0-15)
[2017-09-22] MEDS: Advair Hfa 230/21 Mcg COMMON CANISTER IH SCH ×2 (07:30→20:20)
[2017-09-22] MEDS: Coreg 6.25 MG PO SCH ×2 (08:22→21:28)
[2017-09-22] MEDS: Flomax 0.4 MG PO SCH (08:22)
[2017-09-22] MEDS: Klor Con 10 MEQ PO SCH (08:23)
[2017-09-22] MEDS: Aldactone 25 MG PO SCH (08:23)
[2017-09-22] MEDS: XARELTO 10 MG TABLET PO SCH (08:23)
[2017-09-22] MEDS: Cordarone 200 MG PO SCH ×2 (08:23→21:28)
[2017-09-22] MEDS: Lotensin 10 MG PO SCH (08:23)
[2017-09-22] MEDS: ROCEPHIN 1 Gm-D5w 50 ml Bag** 1 G/50 ML IVPB IV SCH (08:24)
[2017-09-22] MEDS ORDERED: TROUGH DRUG LEVELS IJ ONE (09:30)
[2017-09-22] MEDS: Sodium Chloride 0.9% 1000 ML 1,000 ML IV SCH (10:00)
[2017-09-22] MEDS: VANCOCIN 1 GM VIAL*** 0.75 GM in Sodium Chloride 0.9% 250 ML 250 ML IV SCH ×2 (10:40→21:28)
[2017-09-22] MEDS: PERCOCET TABLET 5/325MG PO PRN ×3 (10:40→21:28)
[2017-09-22] MEDS ORDERED: MILK OF MAGNESIA 30 ML PO PRN (14:53)
--- NOTE | 2017-09-22 14:53 | PCM.NOTE ---
Date and Time: 09/22/17 1449 Subjective Assessment: Pain is currently 4/10 - states normally it is "10-20 out of 10." He still has a lot of trouble moving around, even in the bed. He is interested in staying here for swing bed stay when his acute stay is done. Barring that, he would like to go to [facility] for rehab. - Review of Systems Constitutional: No Fever Musculoskeletal: Back Pain Objective Exam General Appearance: no apparent distress, alert, other (without assistance, pt is unable to sit up or roll over) Neurologic Exam: oriented x 3, cooperative Skin Exam: normal color, warm, dry, No rash Respiratory Exam: normal breath sounds, lungs clear, No crackles/rales, No rhonchi, No wheezing Cardiovascular Exam: regular rate/rhythm, normal heart sounds, No murmur Gastrointestinal/Abdomen Exam: soft, normal bowel sounds, No tenderness Extremity Exam: other (PICC line in RUE), No pedal edema, No swelling OBJECTIVE DATA Vital Signs: Vital Signs - 24 hr Temp Pulse Resp BP BP Pulse Ox 09/22/17 12:00 16 09/22/17 11:30 98.4 F 64 18 120/76 95 09/22/17 08:15 20 09/22/17 07:23 62 18 97 09/22/17 07:21 98.0 F 72 18 120/60 94 L 09/22/17 04:00 98.7 F 64 16 103/57 96 09/22/17 00:00 98.8 F 66 16 98/56 96 09/21/17 20:00 98.3 F 69 18 111/58 96 09/21/17 19:33 67 19 95 09/21/17 16:00 98.1 F 68 20 111/59 97 Oxygen-Last 24 hours O2 Percentage 2 Liters = 28% O2 Percentage 2 Liters = 28% O2 Percentage 2 Liters = 28% O2 Percentage 2 Liters = 28% O2 Percentage 2 Liters = 28% O2 Percentage 2 Liters = 28% Pain Assessment - Last Documented Pain Intensity 4 Pain Scale Used 0-10 Pain Scale Intake and Output: Intake & Output 09/20/17 09/21/17 09/22/17 09/23/17 11:59 11:59 11:59 11:59 Intake Total 4038 4628 360 Output Total 2050 2600 800 Balance 1987 Lab Results: Lab Results-Last 24 Hours 09/21/17 09/22/17 09/22/17 Range/Units 14:58 04:00 05:45 WBC 7.6 (4.0-10.5) K/mm3 RBC 3.36 L (4.1-5.6) M/mm3 Hgb 9.6 L (12.5-18.0) gm/dl Hct 30.3 L (42-50) % MCV 90.2 (78-100) fl MCH 28.5 (26-32) pg MCHC 31.7 L (32-36) g/dl RDW 14.2 H (11.5-14.0) % Plt Count 315 (150-450) K/mm3 MPV 10.1 H (6-9.5) fl Gran % 77.3 H (36.0-66.0) % Lymphocytes % 12.2 L (24.0-44.0) % Monocytes % 8.8 (0.0-12.0) % Eosinophils % 1.6 (0.00-5.0) % Basophils % 0.1 (0.0-0.4) % Basophils # 0.01 (0-0.4) ESR 133 H (0-15) mm/hr INR 3.00 (0.8-3.0) APTT 41.2 H (24.1-36.1) SECONDS Sodium (136-145) mEq/L Potassium (3.5-5.1) mEq/L Chloride (98-107) mEq/L Carbon Dioxide (21-32) mEq/L Anion Gap (5-15) MEQ/L BUN (9-20) mg/dL Creatinine (0.55-1.30) mg/dl Estimated GFR ML/MIN Glucose (70-110) MG/DL Calcium (8.5-10.1) mg/dL Total Bilirubin (0.2-1.0) mg/dL AST (15-37) U/L ALT (12-78) U/L Alkaline Phosphatase (46-116) U/L Serum Total Protein (6.4-8.2) gm/dL Albumin (3.4-5.0) g/dL Vancomycin Trough 12.2 (10-20) UG/ML 09/22/17 Range/Units 05:45 WBC (4.0-10.5) K/mm3 RBC (4.1-5.6) M/mm3 Hgb (12.5-18.0) gm/dl Hct (42-50) % MCV (78-100) fl MCH (26-32) pg MCHC (32-36) g/dl RDW (11.5-14.0) % Plt Count (150-450) K/mm3 MPV (6-9.5) fl Gran % (36.0-66.0) % Lymphocytes % (24.0-44.0) % Monocytes % (0.0-12.0) % Eosinophils % (0.00-5.0) % Basophils % (0.0-0.4) % Basophils # (0-0.4) ESR (0-15) mm/hr INR (0.8-3.0) APTT (24.1-36.1) SECONDS Sodium 131 L (136-145) mEq/L Potassium 5.4 H (3.5-5.1) mEq/L Chloride 101 (98-107) mEq/L Carbon Dioxide 24.3 (21-32) mEq/L Anion Gap 10.9 (5-15) MEQ/L BUN 10 (9-20) mg/dL Creatinine 1.03 (0.55-1.30) mg/dl Estimated GFR > 60 ML/MIN Glucose 154 H (70-110) MG/DL Calcium 8.5 (8.5-10.1) mg/dL Total Bilirubin 0.50 (0.2-1.0) mg/dL AST 31 (15-37) U/L ALT 46 (12-78) U/L Alkaline Phosphatase 50 (46-116) U/L Serum Total Protein 6.7 (6.4-8.2) gm/dL Albumin 2.4 L (3.4-5.0) g/dL Vancomycin Trough (10-20) UG/ML Radiology Exams: Radiology Procedures Category Date Time Status CHEST 1 VIEW (PORTABLE) Stat Exams 09/21/17 17:56 Completed LUMBAR COMPLETE (MIN 4 VIEWS) Routine Exams 09/20/17 19:00 Completed Multi-Disciplinary Progress Notes: Multi-Disciplinary Progress Notes 09/21/17 15:00 (created 09/21/17 15:07) Case Management Note by Ela Lagunas PROVIDED [facility] WITH UPDATE. CONTINUE TO PLAN FOR TRANSITION TO [facility] ON DISCHARGE. DISCUSSED PT WILL LIKELY NEED 6 WEEKS OF IV ABX PER NOTED BY DR. SARAVIA. WILL CONTINUE TO FOLLOW AND ASSESS FOR ALL DC NEEDS. Initialized on 09/21/17 15:07 - END OF NOTE 09/21/17 14:52 Physical Therapy Note by Macie Mcfarland PATIENT REFUSED TO ATTEMPT MOBILIZATION TODAY HE STATES HE IS IN TOO MUCH PAIN - RATES 15/10. DID NOT WANT TO TRY ICE AGAIN BENEFIT WAS MINIMAL YESTERDAY. STATES PAIN MEDS GIVE HIM SHORT PERIODS OF RELIEF OF PAIN TO 5/10. HE WANTS TO GIVE ANTIBIOTIC THERAPY TIME TO WORK THINKING PAIN WILL DIMINISH ENOUGH TO ALLOW MORE FUNCTIONAL MOBILITY LATER ON. DISCUSSED THE NEED TO MOVE REBECA SO TO AVOID SECONDARY COMPLICATIONS OF IMMOBILITY. WILL MONITOR. Initialized on 09/21/17 14:52 - END OF NOTE Assessment/Plan (1) Osteomyelitis of lumbar spine Current Visit: Yes Status: Acute Assessment & Plan: On IV vancomycin and rocephin. Pt will require quite a long course of antibiotics IV. Orthopedics has been consulted, thank you. Code(s): M46.26 - OSTEOMYELITIS OF VERTEBRA, LUMBAR REGION (2) Discitis of lumbar region Current Visit: Yes Status: Acute Code(s): M46.46 - DISCITIS, UNSPECIFIED, LUMBAR REGION (3) Hyperkalemia Current Visit: Yes Status: Acute Assessment & Plan: Stopping his po potassium; he is also on spironolactone. Code(s): E87.5 - HYPERKALEMIA (4) Hyponatremia Current Visit: Yes Status: Acute Assessment & Plan: stable. Code(s): E87.1 - HYPO-OSMOLALITY AND HYPONATREMIA (5) Constipation Current Visit: Yes Status: Acute Qualifiers: Constipation type: slow transit constipation Qualified Code(s): K59.01 - Slow transit constipation Code(s): K59.00 - CONSTIPATION, UNSPECIFIED
[2017-09-22] MEDS: Zocor 10MG PO SCH (21:28)
[2017-09-23] MEDS: Zofran 4 MG/2 ML VIAL IV PRN (04:32)
[2017-09-23 05:40] LABS: BASOPHIL % 0.4 % (0.0-0.4); Basophil (Absolute #) 0.03 (0-0.4); Eosinophil % 2.9 % (0.00-5.0); Granulocyte Absolute (ANC) 4.99 (1.4-6.9); Granulocytes % 73.3 % (36.0-66.0); Hematocrit 30.1 % (42-50); Hemoglobin 9.6 gm/dl (12.5-18.0); Lymphocyte (Absolute #) 0.97 (1.0-4.6); Lymphocytes % 14.2 % (24.0-44.0); Mean Cell Volume 89.3 fl (78-100); Mean Corpuscular Hgb Concent. 31.9 g/dl (32-36); Mean Platelet Volume 9.9 fl (6-9.5); Monocyte (Absolute #) 0.63 (0.0-1.3); Monocytes % 9.2 % (0.0-12.0); Platelet Count 294 K/mm3 (150-450); Red Blood Count 3.37 M/mm3 (4.1-5.6); Red Cell Distribution Width 14.2 % (11.5-14.0); White Blood Count 6.8 K/mm3 (4.0-10.5)
[2017-09-23 05:41] LABS: Mean Corpuscular Hemoglobin 28.4 pg (26-32)
[2017-09-23 05:52] LABS: ALBUMIN 2.4 g/dL (3.4-5.0); ALKALINE PHOSPHATASE 50 U/L (46-116); ANION GAP 12.4 MEQ/L (5-15); BLOOD UREA NITROGEN 13 mg/dL (9-20); CHLORIDE 98 mEq/L (98-107); Calcium 8.5 mg/dL (8.5-10.1); Carbon Dioxide 24.4 mEq/L (21-32); Creatinine 1 1.06 mg/dl (0.55-1.30); EST GLOMERULAR FILTRATION RATE > 60 ML/MIN; Glucose 150 MG/DL (70-110); Potassium 4.9 mEq/L (3.5-5.1); SGOT/AST 30 U/L (15-37); SGPT/ALT 43 U/L (12-78); SODIUM 130 mEq/L (136-145); Total Protein 6.8 gm/dL (6.4-8.2)
[2017-09-23 06:40] LABS: Erythrocyte Sedimentation Rate 95 mm/hr (0-15)
[2017-09-23] MEDS: Flomax 0.4 MG PO SCH (09:20)
[2017-09-23] MEDS: Lotensin 10 MG PO SCH (09:20)
[2017-09-23] MEDS: XARELTO 10 MG TABLET PO SCH (09:20)
[2017-09-23] MEDS: ROCEPHIN 1 Gm-D5w 50 ml Bag** 1 G/50 ML IVPB IV SCH (09:20)
[2017-09-23] MEDS: Coreg 6.25 MG PO SCH ×2 (09:21→21:31)
[2017-09-23] MEDS: PERCOCET TABLET 5/325MG PO PRN ×3 (09:21→21:31)
[2017-09-23] MEDS: Cordarone 200 MG PO SCH ×2 (09:21→21:31)
[2017-09-23] MEDS: Aldactone 25 MG PO SCH (09:21)
[2017-09-23] MEDS: Sodium Chloride 0.9% 1000 ML 1,000 ML IV SCH (10:41)
[2017-09-23] MEDS: VANCOCIN 1 GM VIAL*** 0.75 GM in Sodium Chloride 0.9% 250 ML 250 ML IV SCH ×2 (10:41→21:59)
[2017-09-23] MEDS: Advair Hfa 230/21 Mcg COMMON CANISTER IH SCH ×2 (10:44→19:31)
--- NOTE | 2017-09-23 14:15 | PCM.NOTE ---
Date and Time: 09/23/17 141 Subjective Assessment: Pt still unable to move without significant pain. tish po. - Review of Systems Constitutional: No Fever Musculoskeletal: Back Pain Objective Exam General Appearance: moderate distress (with movement; no distress while lying on his back, still), alert Neurologic Exam: oriented x 3, cooperative Skin Exam: normal color, warm, dry, No rash Respiratory Exam: normal breath sounds, lungs clear, No crackles/rales, No rhonchi, No wheezing Cardiovascular Exam: regular rate/rhythm, normal heart sounds, No murmur Extremity Exam: No pedal edema, No swelling OBJECTIVE DATA Vital Signs: Vital Signs - 24 hr Temp Pulse Resp BP Pulse Ox 09/23/17 12:00 97.9 F 60 17 88/53 98 09/23/17 10:44 78 18 95 09/23/17 08:00 98.7 F 72 18 103/52 96 09/23/17 04:00 98.4 F 73 18 102/59 96 09/23/17 00:00 20 09/22/17 23:43 97.8 F 75 20 111/57 96 09/22/17 20:20 64 18 98 09/22/17 20:00 18 09/22/17 19:40 98.1 F 66 18 109/59 97 09/22/17 16:00 97.6 F 61 18 117/55 96 Oxygen-Last 24 hours O2 Percentage 2 Liters = 28% O2 Percentage 2 Liters = 28% O2 Percentage 2 Liters = 28% O2 Percentage 2 Liters = 28% Pain Assessment - Last Documented Pain Intensity 5 Pain Scale Used 0-10 Pain Scale Intake and Output: Intake & Output 09/21/17 09/22/17 09/23/17 09/24/17 11:59 11:59 11:59 11:59 Intake Total 4038 3716 2069 360 Output Total 1920 2600 3800 550 Balance 1987 7586 -793 -715 Lab Results: Lab Results-Last 24 Hours 09/23/17 09/23/17 Range/Units 05:00 05:00 WBC 6.8 (4.0-10.5) K/mm3 RBC 3.37 L (4.1-5.6) M/mm3 Hgb 9.6 L (12.5-18.0) gm/dl Hct 30.1 L (42-50) % MCV 89.3 (78-100) fl MCH 28.4 (26-32) pg MCHC 31.9 L (32-36) g/dl RDW 14.2 H (11.5-14.0) % Plt Count 294 (150-450) K/mm3 MPV 9.9 H (6-9.5) fl Gran % 73.3 H (36.0-66.0) % Lymphocytes % 14.2 L (24.0-44.0) % Monocytes % 9.2 (0.0-12.0) % Eosinophils % 2.9 (0.00-5.0) % Basophils % 0.4 (0.0-0.4) % Basophils # 0.03 (0-0.4) ESR 95 H (0-15) mm/hr Sodium 130 L (136-145) mEq/L Potassium 4.9 (3.5-5.1) mEq/L Chloride 98 (98-107) mEq/L Carbon Dioxide 24.4 (21-32) mEq/L Anion Gap 12.4 (5-15) MEQ/L BUN 13 (9-20) mg/dL Creatinine 1.06 (0.55-1.30) mg/dl Estimated GFR > 60 ML/MIN Glucose 150 H (70-110) MG/DL Calcium 8.5 (8.5-10.1) mg/dL Total Bilirubin 0.40 (0.2-1.0) mg/dL AST 30 (15-37) U/L ALT 43 (12-78) U/L Alkaline Phosphatase 50 (46-116) U/L Serum Total Protein 6.8 (6.4-8.2) gm/dL Albumin 2.4 L (3.4-5.0) g/dL Radiology Exams: Radiology Procedures Category Date Time Status CHEST 1 VIEW (PORTABLE) Stat Exams 09/21/17 17:56 Completed Assessment/Plan (1) Osteomyelitis of lumbar spine Current Visit: Yes Status: Acute Assessment & Plan: Will need to continue IV antibiotics for 6 wks total. on Vancomycin and rocephin. Code(s): M46.26 - OSTEOMYELITIS OF VERTEBRA, LUMBAR REGION (2) Discitis of lumbar region Current Visit: Yes Status: Acute Code(s): M46.46 - DISCITIS, UNSPECIFIED, LUMBAR REGION (3) Hyperkalemia Current Visit: Yes Status: Acute Code(s): E87.5 - HYPERKALEMIA (4) Hyponatremia Current Visit: Yes Status: Acute Code(s): E87.1 - HYPO-OSMOLALITY AND HYPONATREMIA (5) Constipation Current Visit: Yes Status: Acute Qualifiers: Constipation type: slow transit constipation Qualified Code(s): K59.01 - Slow transit constipation Code(s): K59.00 - CONSTIPATION, UNSPECIFIED
[2017-09-23] MEDS: Zocor 10MG PO SCH (21:31)
[2017-09-24] MEDS: Sodium Chloride 0.9% 1000 ML 1,000 ML IV SCH (01:36)
[2017-09-24 06:33] LABS: BASOPHIL % 0.2 % (0.0-0.4); Basophil (Absolute #) 0.01 (0-0.4); Eosinophil % 3.4 % (0.00-5.0); Granulocyte Absolute (ANC) 4.26 (1.4-6.9); Granulocytes % 72.3 % (36.0-66.0); Hematocrit 31.7 % (42-50); Hemoglobin 9.9 gm/dl (12.5-18.0); Lymphocyte (Absolute #) 0.89 (1.0-4.6); Lymphocytes % 15.1 % (24.0-44.0); Mean Cell Volume 89.8 fl (78-100); Mean Corpuscular Hgb Concent. 31.2 g/dl (32-36); Monocyte (Absolute #) 0.53 (0.0-1.3); Platelet Count 302 K/mm3 (150-450); Red Blood Count 3.53 M/mm3 (4.1-5.6); Red Cell Distribution Width 14.3 % (11.5-14.0); White Blood Count 5.9 K/mm3 (4.0-10.5)
[2017-09-24 06:57] LABS: ALBUMIN 2.4 g/dL (3.4-5.0); ALKALINE PHOSPHATASE 51 U/L (46-116); ANION GAP 10.3 MEQ/L (5-15); BLOOD UREA NITROGEN 14 mg/dL (9-20); CHLORIDE 101 mEq/L (98-107); Calcium 8.7 mg/dL (8.5-10.1); Carbon Dioxide 26.6 mEq/L (21-32); Creatinine 1 1.06 mg/dl (0.55-1.30); EST GLOMERULAR FILTRATION RATE > 60 ML/MIN; Glucose 139 MG/DL (70-110); Potassium 4.9 mEq/L (3.5-5.1); SGOT/AST 37 U/L (15-37); SGPT/ALT 45 U/L (12-78); SODIUM 133 mEq/L (136-145); Total Protein 6.9 gm/dL (6.4-8.2)
[2017-09-24] MEDS: Advair Hfa 230/21 Mcg COMMON CANISTER IH SCH (07:14)
[2017-09-24 08:18] VITALS: BP 112/56; PULSE 68; O2SAT 96
[2017-09-24] MEDS: VANCOCIN 1 GM VIAL*** 0.75 GM in Sodium Chloride 0.9% 250 ML 250 ML IV SCH (09:44)
[2017-09-24] MEDS: PERCOCET TABLET 5/325MG PO PRN (09:52)
[2017-09-24] MEDS: Aldactone 25 MG PO SCH (09:53)
[2017-09-24] MEDS: Cordarone 200 MG PO SCH (09:53)
[2017-09-24] MEDS: Coreg 6.25 MG PO SCH (09:53)
[2017-09-24] MEDS: Lotensin 10 MG PO SCH (09:54)
[2017-09-24] MEDS: Flomax 0.4 MG PO SCH (09:54)
[2017-09-24] MEDS: XARELTO 10 MG TABLET PO SCH (09:55)
[2017-09-24 10:52] LABS: Erythrocyte Sedimentation Rate 107 mm/hr (0-15)
--- NOTE | 2017-09-24 11:15 | PCM.DCORD ---
- Discharge Discharge Date: 09/24/17 Disposition: DC TO [facility] Condition: Fair Prescriptions: New Ceftriaxone 1 GM/50 ML PREMIX* [ROCEPHIN 1 Gm-D5w 50 ml Bag] 1 g IV Q24H10 ivpb Vancomycin HCl in Dextrose 5 % [Vancomycin 750 mg/250 ml-D5w] 750 mg IV Q12H #60 plast..bag Oxycodone HCl/Acetaminophen [Percocet 5-325 mg Tablet] 1 each PO Q4H PRN #42 tablet MDD 6 PRN Reason: Pain Continue Carvedilol 6.25 mg [Coreg 6.25 MG] 6.25 mg PO BID Tamsulosin HCl 0.4 mg [Flomax 0.4 MG] 0.4 mg PO DAILY Potassium Chloride 10 Meq Tab* [Klor Con 10 MEQ] 10 meq PO TID Spironolactone 25 mg [Aldactone 25 MG] 25 mg PO DAILY Rivaroxaban [Xarelto] 20 mg PO DAILY Simvastatin 20Mg [Zocor 20Mg] 10 mg PO HS Budesonide/Formoterol Fumarate [Symbicort 160-4.5 Mcg Inhaler] 10.2 gm IH BID Amiodarone HCl 200 mg PO BID Benazepril HCl [Lotensin] 20 mg PO DAILY Tramadol HCl 50 mg [Ultram 50 mg] 50 mg PO Q6HPRN PRN #28 tablet MDD 4 PRN Reason: Pain Changed Cyanocobalamin (Vitamin B-12) [Vitamin B12] 5,000 mcg PO DAILY #0 Cholecalciferol (Vitamin D3) [Vitamin D3] 5,000 unit PO DAILY #0 Additional Instructions: PT/OT evaluate and treat Discitis L5/S1 with 6 week iv antibiotic therapy last dose due 11/02/2017 Pharmacy to consult vancomycin monitoring weekly cbc, cmp, vanc trough level, esr
[2017-09-24] MEDS: ROCEPHIN 1 Gm-D5w 50 ml Bag** 1 G/50 ML IVPB IV SCH (14:10)
--- NOTE | 2017-09-24 14:13 | PCM.DS ---
Discharge Summary Date of Admission: 09/20/17 10:31 Date of Discharge: 09/24/17 Admitting Physician: ALIREZA ZENDEJAS Consults: Consults on Case 09/20/17 10:32 Consult Ortho ROUTINE Primary Care Provider: RONALD ZUÑIGA YAS Allergies Allergies No Known Drug Allergies Allergy (Verified 09/18/17 13:12) Hospital Summary - Hospital Course Hospital Course: Mr. Winkler is a patient of Dr. Zuñiga who had been having worsening back pain since August and eventually got to the point he was unable to walk due to the pain and even the slightest movement caused severe pain. He denied any fevers, chills, nausea vomiting or recent infection. He denied any rash, difficulty urinating or difficult bowel movements or incontinence. He had elevated ESR and CT reconstruction as the MRI unable to be done with his pacemaker and Orthopaedic evaluation that point to suspected infectious discitis/ osteomyelitis at L5/S1. Ortho felt biopsy would not be helpful in the current situation and recommended 6 weeks of empiric abx with vanc and Rocephin which was started on 09/20/17. His pain has been difficult to control. he has been afebrile tolerating po. He did get a PICC line in place and tolerating the antbiotics well. He is on anticoagulant chronically and his chronic heart medications were continued throughout the stay. - Vitals & Intake/Output Vital Signs: Vital Signs Temperature 97.4 F 09/24/17 08:00 Pulse Rate 68 09/24/17 08:00 Respiratory Rate 18 09/24/17 12:00 Blood Pressure 112/56 09/24/17 08:00 O2 Sat by Pulse Oximetry 96 09/24/17 08:00 Oxygen-Last Documented O2 Percentage 2 Liters = 28% Intake & Output: Intake & Output 09/22/17 09/23/17 09/24/17 09/25/17 11:59 11:59 11:59 11:59 Intake Total 4628 2949 3231 Output Total 2600 3800 3400 Balance 8 -851 -169 - Lab Result Diagrams: 09/24/17 05:50 09/24/17 05:50 Lab Results-Last 24 Hrs: Lab Results-Last 24 Hours 09/24/17 09/24/17 Range/Units 05:50 05:50 WBC 5.9 (4.0-10.5) K/mm3 RBC 3.53 L (4.1-5.6) M/mm3 Hgb 9.9 L (12.5-18.0) gm/dl Hct 31.7 L (42-50) % MCV 89.8 (78-100) fl MCH 28.0 (26-32) pg MCHC 31.2 L (32-36) g/dl RDW 14.3 H (11.5-14.0) % Plt Count 302 (150-450) K/mm3 MPV 10.0 H (6-9.5) fl Gran % 72.3 H (36.0-66.0) % Lymphocytes % 15.1 L (24.0-44.0) % Monocytes % 9.0 (0.0-12.0) % Eosinophils % 3.4 (0.00-5.0) % Basophils % 0.2 (0.0-0.4) % Basophils # 0.01 (0-0.4) ESR 107 H (0-15) mm/hr Sodium 133 L (136-145) mEq/L Potassium 4.9 (3.5-5.1) mEq/L Chloride 101 (98-107) mEq/L Carbon Dioxide 26.6 (21-32) mEq/L Anion Gap 10.3 (5-15) MEQ/L BUN 14 (9-20) mg/dL Creatinine 1.06 (0.55-1.30) mg/dl Estimated GFR > 60 ML/MIN Glucose 139 H (70-110) MG/DL Calcium 8.7 (8.5-10.1) mg/dL Total Bilirubin 0.40 (0.2-1.0) mg/dL AST 37 (15-37) U/L ALT 45 (12-78) U/L Alkaline Phosphatase 51 (46-116) U/L Serum Total Protein 6.9 (6.4-8.2) gm/dL Albumin 2.4 L (3.4-5.0) g/dL Micro Results-Entire Visit: Microbiology 09/20/17 11:25 Blood Culture - Preliminary Blood NO GROWTH TO DATE 09/20/17 11:15 Blood Culture - Preliminary Blood NO GROWTH TO DATE Final Diagnosis/Problem List - Final Discharge Diagnosis/Problem (1) Discitis of lumbar region Current Visit: Yes Status: Acute (2) Osteomyelitis of lumbar spine Current Visit: Yes Status: Acute (3) CHF (congestive heart failure) Current Visit: No Status: Chronic (4) Hyponatremia Current Visit: Yes Status: Acute (5) Anemia Current Visit: Yes Status: Chronic (6) COPD (chronic obstructive pulmonary disease) Current Visit: Yes Status: Chronic (7) CAD (coronary artery disease) Current Visit: Yes Status: Acute (8) Presence of combination internal cardiac defibrillator (ICD) and pacemaker Current Visit: Yes Status: Acute - Discharge Discharge Date: 09/24/17 Disposition: DC TO [facility] Condition: Fair Prescriptions: New Ceftriaxone 1 GM/50 ML PREMIX* [ROCEPHIN 1 Gm-D5w 50 ml Bag] 1 g IV Q24H10 ivpb Vancomycin HCl in Dextrose 5 % [Vancomycin 750 mg/250 ml-D5w] 750 mg IV Q12H #60 plast..bag Oxycodone HCl/Acetaminophen [Percocet 5-325 mg Tablet] 1 each PO Q4H PRN #42 tablet MDD 6 PRN Reason: Pain Continue Carvedilol 6.25 mg [Coreg 6.25 MG] 6.25 mg PO BID Tamsulosin HCl 0.4 mg [Flomax 0.4 MG] 0.4 mg PO DAILY Potassium Chloride 10 Meq Tab* [Klor Con 10 MEQ] 10 meq PO TID Spironolactone 25 mg [Aldactone 25 MG] 25 mg PO DAILY Rivaroxaban [Xarelto] 20 mg PO DAILY Simvastatin 20Mg [Zocor 20Mg] 10 mg PO HS Budesonide/Formoterol Fumarate [Symbicort 160-4.5 Mcg Inhaler] 10.2 gm IH BID Amiodarone HCl 200 mg PO BID Benazepril HCl [Lotensin] 20 mg PO DAILY Tramadol HCl 50 mg [Ultram 50 mg] 50 mg PO Q6HPRN PRN #28 tablet MDD 4 PRN Reason: Pain Changed Cyanocobalamin (Vitamin B-12) [Vitamin B12] 5,000 mcg PO DAILY #0 Cholecalciferol (Vitamin D3) [Vitamin D3] 5,000 unit PO DAILY #0 Additional Instructions: [facility] [address] [address] ORDERS: PT/OT evaluate and treat Discitis L5/S1 with 6 week iv antibiotic therapy last dose due 11/02/2017 Pharmacy to consult vancomycin monitoring weekly cbc, cmp, vanc trough level, esr
== END 2017-09-24 14:18 | DRG 552 ==
LOC: ED 12:53 → MED SURG 15:57 → INTOOBSV 15:57 → OBSVTOIN 09-19 09:41 → INTOOBSV 09-19 09:41 → OBSVTOIN 09-20 10:31
PROVIDERS: ADMIT Family Medicine; ATTEND Family Medicine
DX: M46.46 Discitis, unspecified, lumbar region (principal); M46.26 Osteomyelitis of vertebra, lumbar region; J44.9 Chronic obstructive pulmonary disease, unspecified; E87.1 Hypo-osmolality and hyponatremia; M79.604 Pain in right leg; M79.605 Pain in left leg; J44.1 Chronic obstructive pulmonary disease with (acute) exacerbation; Z87.891 Personal history of nicotine dependence; I50.9 Heart failure, unspecified; Z95.0 Presence of cardiac pacemaker; D64.9 Anemia, unspecified; E87.5 Hyperkalemia; I25.10 Atherosclerotic heart disease of native coronary artery without angina pectoris; K59.00 Constipation, unspecified; M54.5 Low back pain; M54.9 Dorsalgia, unspecified; M19.90 Unspecified osteoarthritis, unspecified site; Z95.810 Presence of automatic (implantable) cardiac defibrillator; Z79.01 Long term (current) use of anticoagulants; Z79.899 Other long term (current) drug therapy; Z98.61 Coronary angioplasty status
CPT/HCPCS: 36000; 36415; 36569; 71010; 72110; 76376; 80048; 80053; 80202; 81000; 85025; 85610; 85652; 85730; 87040; 87086; 94640; 94760; 96360; 96372; 96374; 99285; G0378; J0696; J2270; J2405; J3370; A9270-GY

== ENCOUNTER 2017-11-13 13:37 | Emergency (ER) | payer MEDICARE ==
[2017-11-13] MEDS ORDERED: MORPHINE SULFATE 4 MG INJ IV ONE (14:16)
--- NOTE | 2017-11-13 14:21 | ERPHSYRPT ---
- History of Present Illness Time Seen by Provider: 11/13/17 13:48 Source: patient Patient Subjective Stated Complaint: PT REPORTS LUMBAR REGION BACK PAIN BEGINNING IN EB-STATES IT IS USUALLY A 10-15 ON A 1-10 PAIN SCALE STATES THAT LAST SUNDAY IT WENT TO A [id number]-GVVIQT FALL-DENIES LIFTING Triage Nursing Assessment: PT PALE WARM ET [id number] QUESTIONS CORRECTLY-NO ABRASIONS OR BRUISING NOTED Physician History: CC: back pain Hx: 77 y/o patient sent from OP. He is a pt of Dr Zuñiga. He has had back pain for a few months. Was sitting in a chair and had sharp pain a few months ago. 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 He went home this weekend. Now has marked worsened low back pain. No fever or chills. No chest pain. No numbness, tingling, or weakness. Normal urination without incontinence. No abd pain. He had CT as OP and family office sent him here. He has not seen a specialist. Back Pain Location: lumbar spine Severity of Pain-Max: severe Severity of Pain-Current: mild Allergies/Adverse Reactions: No Known Drug Allergies Allergy (Verified 11/13/17 13:53) Home Medications: Carvedilol 6.25 mg [Coreg 6.25 MG] 6.25 mg PO BID 08/08/17 [History] Potassium Chloride 10 Meq Tab* [Klor Con 10 MEQ] 10 meq PO TID 08/08/17 [ History] Rivaroxaban [Xarelto] 20 mg PO DAILY 08/22/17 [History] Simvastatin 20Mg [Zocor 20Mg] 10 mg PO HS 08/22/17 [History] Amiodarone HCl 200 mg PO BID 09/18/17 [History] Budesonide/Formoterol Fumarate [Symbicort 160-4.5 Mcg Inhaler] 10.2 gm IH BID [History] Hydrocodone/APAP 10/325 mg [[place] 10/325 MG Tablet] 1 tab PO Q4H PRN PRN 11/13/17 [History] Hx Tetanus, Diphtheria Vaccination/Date Given: Yes Hx Influenza Vaccination/Date Given: Yes Hx Pneumococcal Vaccination/Date Given: Yes Immunizations Up to Date: Yes - Review of Systems Constitutional: Malaise, No Fever, No Chills Eyes: No Symptoms Ears, Nose, & Throat: No Symptoms Respiratory: No Cough, No Dyspnea Cardiac: No Chest Pain Abdominal/Gastrointestinal: No Abdominal Pain, No Nausea, No Vomiting Genitourinary Symptoms: No Dysuria, No Incontinence Musculoskeletal: Back Pain (severe low), No Injury Skin: No Rash Neurological: No Focal Weakness, No Headache, No Parasthesia All Other Systems: Reviewed and Negative - Past Medical History Pertinent Past Medical History: Yes Neurological History: No Pertinent History ENT History: No Pertinent History Cardiac History: Coronary Artery Disease Respiratory History: CHF, COPD Endocrine Medical History: No Pertinent History Musculoskeletal History: Arthritis GI Medical History: No Pertinent History Psycho-Social History: No Pertinent History Male Reproductive Disorders: Prostate Problems - Past Surgical History Past Surgical History: Yes Neuro Surgical History: No Pertinent History Cardiac: Angioplasty, Cardiac Catheterization, Cardiac Stent, Internal Defibrillator, Pacemaker Respiratory: No Pertinent History Gastrointestinal: Appendectomy Genitourinary: No Pertinent History Musculoskeletal: No Pertinent History Male Surgical History: No Pertinent History - Social History Smoking Status: Former smoker Exposure to second hand smoke: No Drug Use: none Patient Lives Alone: No - Nursing Vital Signs Nursing Vital Signs: Initial Vital Signs Temperature 97.9 F 11/13/17 13:46 Pulse Rate 89 11/13/17 13:46 Respiratory Rate 20 11/13/17 13:46 Blood Pressure 137/62 11/13/17 13:46 O2 Sat by Pulse Oximetry 99 11/13/17 13:46 Pain Scale Pain Intensity 25 - Physical Exam General Appearance: alert Eye Exam: PERRL/EOMI Ears, Nose, Throat Exam: normal ENT inspection, moist mucous membranes Neck Exam: normal inspection, non-tender, supple Respiratory Exam: normal breath sounds, lungs clear Cardiovascular Exam: regular rate/rhythm, No murmur Gastrointestinal Exam: soft, No tenderness, No distention Male Genetalia Exam: normal genitalia Rectal Exam: normal rectal tone Extremity Exam: normal inspection, normal range of motion Neurologic Exam: alert, oriented x 3, cooperative, lead software qa engineer II-XII nml as tested, sensation nml, No motor deficits Skin Exam: warm, dry, No rash SpO2 Interpretation: normal SpO2: 99 Oxygen Delivery: Room Air - Course Nursing assessment & vital signs reviewed: Yes Ordered Tests: Active Orders 24 hr Category Date Time Status Clean Catch Urine Specimen STAT Care 11/13/17 13:56 Active IV Insertion STAT Care 11/13/17 13:56 Active NPO (ED) STAT Care 11/13/17 13:56 Active BLOOD CULTURE Stat Lab 11/13/17 14:00 Ordered CBC W DIFF Stat Lab 11/13/17 13:56 Ordered CMP Stat Lab 11/13/17 13:56 Ordered Lactic Acid Stat Lab 11/13/17 13:56 Ordered UA W/RFX UR CULTURE Stat Lab 11/13/17 13:56 Ordered - Progress Progress Note: 11/13/17 14:[address] Soliman for Zuñiga who agreed with transfer. Pt agrees for [facility]. Called [facility] one call and spoke to Dr tom Burns who accepts transfer to [facility] ER. Counseled pt/family regarding: diagnosis, need for follow-up - Departure Time of Disposition: 14:20 Departure Disposition: Transfer Clinical Impression: diskitis lumbar L5-S1 Osteomyelitis Qualifiers: Osteomyelitis type: subacute Laterality: unspecified laterality Condition: Stable Critical Care Time: No Referrals: RONALD ZUÑIGA MD [Primary Care Provider] -
[2017-11-13 14:28] LABS: BASOPHIL % 0.5 % (0.0-0.4); Basophil (Absolute #) 0.02 (0-0.4); Eosinophil (Absolute #) 0.08 (0-0.5); Granulocyte Absolute (ANC) 2.72 (1.4-6.9); Granulocytes % 66.8 % (36.0-66.0); Hematocrit 34.6 % (42-50); Hemoglobin 10.9 gm/dl (12.5-18.0); Lymphocyte (Absolute #) 0.86 (1.0-4.6); Lymphocytes % 21.1 % (24.0-44.0); Mean Cell Volume 86.9 fl (78-100); Mean Corpuscular Hgb Concent. 31.5 g/dl (32-36); Mean Platelet Volume 10.2 fl (6-9.5); Monocyte (Absolute #) 0.39 (0.0-1.3); Monocytes % 9.6 % (0.0-12.0); Platelet Count 219 K/mm3 (150-450); Red Blood Count 3.98 M/mm3 (4.1-5.6); Red Cell Distribution Width 15.7 % (11.5-14.0); White Blood Count 4.1 K/mm3 (4.0-10.5)
[2017-11-13] MEDS ORDERED: MORPHINE SULFATE 4 MG INJ ONE (14:30)
[2017-11-13 14:33] LABS: Mean Corpuscular Hemoglobin 27.3 pg (26-32)
[2017-11-13 14:46] LABS: ALBUMIN 3.5 g/dL (3.4-5.0); ANION GAP 13.6 MEQ/L (5-15); BILIRUBIN,TOTAL 0.4 mg/dL (0.2-1.0); Calcium 8.3 mg/dL (8.5-10.1); Carbon Dioxide 22.5 mEq/L (21-32); Creatinine 1 1.3 mg/dl (0.55-1.30); Potassium 4.5 mEq/L (3.5-5.1); Total Protein 7.7 gm/dL (6.4-8.2)
[2017-11-13 16:00] VITALS: BP 119/61; PULSE 68; O2SAT 98
== END 2017-11-13 17:30 | disposition short-term general hospital (02) ==
LOC: ED 13:37
DX: M86.9 Osteomyelitis, unspecified (principal); M46.47 Discitis, unspecified, lumbosacral region; Z79.899 Other long term (current) drug therapy; I25.10 Atherosclerotic heart disease of native coronary artery without angina pectoris; I50.9 Heart failure, unspecified; J44.9 Chronic obstructive pulmonary disease, unspecified; Z98.61 Coronary angioplasty status; Z95.810 Presence of automatic (implantable) cardiac defibrillator
CPT/HCPCS: 36000; 36415; 72133; 80053; 83605; 85025; 87040; 96374; 99285; J2270

== ENCOUNTER 2017-12-15 17:46 | Inpatient (IN) | payer MEDICARE ==
[2017-12-15] MEDS ORDERED: DUONEB 0.5-3 MG/3 ml Neb IH ONE ×2 (18:41→18:53)
[2017-12-15] MEDS ORDERED: ROCEPHIN 1 Gm-D5w 50 ml Bag** 1 G/50 ML IVPB IV STA (18:41)
[2017-12-15] MEDS ORDERED: solu-MEDROL 125 MG IV ONE (18:41)
--- NOTE | 2017-12-15 18:41 | ERPHSYRPT ---
- History of Present Illness Time Seen by Provider: 12/15/17 18:16 Source: patient, family, EMS Exam Limitations: no limitations Patient Subjective Stated Complaint: pt arrived to ed per [facility] from [facility]-states that pt stated he was sob-reports he becomes sob with movement Triage Nursing Assessment: pt currently sitting in ed rm with no retractions- denies cough-states his back pain is a 10/10-lungs diminished Physician History: pt had back surgery at 1-2 weeks ago and has been recovering in NH but is more and more short of breath - diagnosis of 'pneumonia" per pt for the [ast few months and on O2 ; denies Cp or NV or abd pain; coarse rhonchi/BS ; Timing/Duration: day(s) Cough Quality/Degree: no cough Possible Cause: chronic episodes Modifying Factors: Improves With: activity Associated Symptoms: other (back pain) Allergies/Adverse Reactions: No Known Drug Allergies Allergy (Verified 11/13/17 13:53) Home Medications: Carvedilol 6.25 mg [Coreg 6.25 MG] 6.25 mg PO BID 08/08/17 [History] Potassium Chloride 10 Meq Tab* [Klor Con 10 MEQ] 10 meq PO TID 08/08/17 [ History] Rivaroxaban [Xarelto] 20 mg PO DAILY 08/22/17 [History] Simvastatin 20Mg [Zocor 20Mg] 10 mg PO HS 08/22/17 [History] Amiodarone HCl 200 mg PO BID 09/18/17 [History] Budesonide/Formoterol Fumarate [Symbicort 160-4.5 Mcg Inhaler] 10.2 gm IH BID [History] Hydrocodone/APAP 10/325 mg [[place] 10/325 MG Tablet] 1 tab PO Q4H PRN PRN 11/13/17 [History] Hx Tetanus, Diphtheria Vaccination/Date Given: Yes Hx Influenza Vaccination/Date Given: Yes Hx Pneumococcal Vaccination/Date Given: Yes Immunizations Up to Date: Yes - Review of Systems Constitutional: No Fever, No Chills Eyes: No Symptoms Ears, Nose, & Throat: No Symptoms Respiratory: Dyspnea, Dyspnea on Exertion (BERNAL), No Cough Cardiac: No Chest Pain, No Edema, No Syncope Abdominal/Gastrointestinal: No Abdominal Pain, No Nausea, No Vomiting, No Diarrhea Genitourinary Symptoms: No Dysuria Musculoskeletal: Back Pain, No Neck Pain Skin: No Rash Neurological: No Dizziness, No Focal Weakness, No Sensory Changes Psychological: No Symptoms Endocrine: No Symptoms Hematologic/Lymphatic: No Symptoms Immunological/Allergic: No Symptoms All Other Systems: Reviewed and Negative - Past Medical History Pertinent Past Medical History: Yes Neurological History: No Pertinent History ENT History: No Pertinent History Cardiac History: Coronary Artery Disease Respiratory History: CHF, COPD Endocrine Medical History: No Pertinent History Musculoskeletal History: Arthritis GI Medical History: No Pertinent History Psycho-Social History: No Pertinent History Male Reproductive Disorders: Prostate Problems - Past Surgical History Past Surgical History: Yes Neuro Surgical History: No Pertinent History Cardiac: Angioplasty, Cardiac Catheterization, Cardiac Stent, Internal Defibrillator, Pacemaker Respiratory: No Pertinent History Gastrointestinal: Appendectomy Genitourinary: No Pertinent History Musculoskeletal: No Pertinent History Male Surgical History: No Pertinent History - Social History Smoking Status: Former smoker Exposure to second hand smoke: No Drug Use: none Patient Lives Alone: No - Nursing Vital Signs Nursing Vital Signs: Initial Vital Signs Temperature 97.1 F 12/15/17 18:08 Pain Scale Pain Intensity 0 - Physical Exam General Appearance: no apparent distress, alert Eye Exam: PERRL/EOMI, eyes nml inspection Ears, Nose, Throat Exam: normal ENT inspection, TMs normal, pharynx normal, moist mucous membranes Neck Exam: normal inspection, non-tender, supple, full range of motion Respiratory Exam: airway intact, prolonged expirations, rhonchi, No respiratory distress Cardiovascular Exam: regular rate/rhythm, normal heart sounds Gastrointestinal/Abdomen Exam: soft, No tenderness Back Exam: normal inspection, No CVA tenderness, No vertebral tenderness Extremity Exam: normal inspection, normal range of motion Neurologic Exam: alert, oriented x 3, cooperative, normal mood/affect, sensation nml, No motor deficits Skin Exam: normal color, warm, dry, No rash Lymphatic Exam: No adenopathy - Course Nursing assessment & vital signs reviewed: Yes EKG Interpreted by Me: Left Arboles Deviation, Left Bundle Branch Block, Non- specific ST Changes, Other (vent pacer) - Radiology Exams Chest X-ray Interpretation: Reviewed by me, Other (stable infiltrates/COPD and nodules /scarring - no lobar pneumonia) Ordered Tests: Active Orders 24 hr Category Date Time Status Knockout Machine Operator STAT Care 12/15/17 18:42 Active EKG-ER Only STAT Care 12/15/17 18:41 Active IV Insertion STAT Care 12/15/17 18:41 Active Oxygen-ED Only NASAL CANNULA 2 lpm Care 12/15/17 18:41 Active Pulse Oximetry (ED) STAT Care 12/15/17 18:41 Active CHEST 1 VIEW (PORTABLE) Stat Exams 12/15/17 18:42 Completed CBC W DIFF Stat Lab 12/15/17 18:50 Completed CMP Stat Lab 12/15/17 18:50 Completed CULTURE, THROAT Stat Lab 12/15/17 18:50 Received D-DIMER QUANTITATION Stat Lab 12/15/17 18:50 Completed Lactic Acid Stat Lab 12/15/17 19:25 Completed Lactic Acid Stat Lab 12/15/17 21:40 Ordered NT PRO BNP Stat Lab 12/15/17 18:50 Completed STREP SCREEN-BETA A Stat Lab 12/15/17 18:50 Completed TROPONIN Q3H Lab 12/15/17 18:50 Completed TROPONIN Q3H Lab 12/15/17 21:45 Completed TROPONIN Q3H Lab 12/16/17 00:45 Ordered TROPONIN Q3H Lab 12/16/17 03:45 Ordered TROPONIN Q3H Lab 12/16/17 06:45 Ordered UA W/RFX UR CULTURE Stat Lab 12/15/17 18:43 Ordered Respiratory Nebulizer STAT RT 12/15/17 18:44 Completed Medication Summary Generic Name Dose Route Start Last Admin Trade Name Freq PRN Reason Stop Dose Admin Sodium Chloride 1,000 mls @ 50 mls/hr 12/15/17 18:45 12/15/17 19:14 Sodium Chloride 0.9% 1000 Ml IV 01/14/18 18:44 50 mls/hr .Q20H STEPHANIE Administration Discontinued Medications Generic Name Dose Route Start Last Admin Trade Name Freq PRN Reason Stop Dose Admin Albuterol/Ipratropium 3 ml 12/15/17 18:41 12/15/17 19:19 Duoneb 0.5-3 Mg/3 Ml Neb IH 12/15/17 18:42 3 ml STAT ONE Administration Albuterol/Ipratropium Confirm 12/15/17 18:53 Duoneb 0.5-3 Mg/3 Ml Neb Administered 12/15/17 18:54 Dose 3 ml IH .STK-MED ONE Ceftriaxone Sodium/Dextrose 1 g in 50 mls @ 100 mls/hr 12/15/17 18:41 19:14 Rocephin 1 Gm-D5w 50 Ml Bag IV 12/15/17 19:10 100 mls/hr STAT STA Administration Ceftriaxone Sodium/Dextrose Confirm 12/15/17 19:08 Rocephin 1 Gm-D5w 50 Ml Bag Administered 12/15/17 19:09 Dose 1 g in 50 mls @ ud IV .STK-MED ONE Methylprednisolone Sodium Succinate 125 mg 12/15/17 18:41 12/15/17 19:14 Solu-Medrol 125 Mg IV 12/15/17 18:42 125 mg STAT ONE Administration Methylprednisolone Sodium Succinate Confirm 12/15/17 19:08 Solu-Medrol 125 Mg Administered 12/15/17 19:09 Dose 125 mg .ROUTE .STK-MED ONE Lab/Rad Data: Laboratory Result Diagrams 12/15/17 18:50 12/15/17 18:50 Laboratory Results 12/15/17 12/15/17 12/15/17 Range/Units 21:45 19:25 18:50 WBC (4.0-10.5) K/mm3 RBC (4.1-5.6) M/mm3 Hgb (12.5-18.0) gm/dl Hct (42-50) % MCV (78-100) fl MCH (26-32) pg MCHC (32-36) g/dl RDW (11.5-14.0) % Plt Count (150-450) K/mm3 MPV (6-9.5) fl Gran % (36.0-66.0) % Lymphocytes % (24.0-44.0) % Monocytes % (0.0-12.0) % Eosinophils % (0.00-5.0) % Basophils % (0.0-0.4) % Basophils # (0-0.4) D-Dimer (215-500) ng/mL Sodium (137-145) mmol/L Potassium (3.5-5.1) mmol/L Chloride (98-107) mmol/L Carbon Dioxide (22-30) mmol/L Anion Gap (5-15) MEQ/L BUN (9-20) mg/dL Creatinine (0.66-1.25) mg/dL Estimated GFR ML/MIN Glucose (74-106) mg/dL Lactic Acid 2.0 (0.4-2.0) Calcium (8.4-10.2) mg/dL Total Bilirubin (0.2-1.3) mg/dL AST (17-59) U/L ALT (0-50) U/L Alkaline Phosphatase (38-126) U/L Troponin I < 0.012 (0.000-0.034) ng/mL NT-Pro-B Natriuret Pep (0-1800) pg/mL Serum Total Protein (6.3-8.2) g/dL Albumin (3.5-5.0) g/dL Influenza Type A Ag NEGATIVE (NEGATIVE) Influenza Type B Ag NEGATIVE (NEGATIVE) RSV (PCR) NEGATIVE (Negative) Streptococcus Screen (Negative) Slides for Path Review 12/15/17 12/15/17 12/15/17 Range/Units 18:50 18:50 18:50 WBC (4.0-10.5) K/mm3 RBC (4.1-5.6) M/mm3 Hgb (12.5-18.0) gm/dl Hct (42-50) % MCV (78-100) fl MCH (26-32) pg MCHC (32-36) g/dl RDW (11.5-14.0) % Plt Count (150-450) K/mm3 MPV (6-9.5) fl Gran % (36.0-66.0) % Lymphocytes % (24.0-44.0) % Monocytes % (0.0-12.0) % Eosinophils % (0.00-5.0) % Basophils % (0.0-0.4) % Basophils # (0-0.4) D-Dimer 2465.99 H* (215-500) ng/mL Sodium (137-145) mmol/L Potassium (3.5-5.1) mmol/L Chloride (98-107) mmol/L Carbon Dioxide (22-30) mmol/L Anion Gap (5-15) MEQ/L BUN (9-20) mg/dL Creatinine (0.66-1.25) mg/dL Estimated GFR ML/MIN Glucose (74-106) mg/dL Lactic Acid (0.4-2.0) Calcium (8.4-10.2) mg/dL Total Bilirubin (0.2-1.3) mg/dL AST (17-59) U/L ALT (0-50) U/L Alkaline Phosphatase (38-126) U/L Troponin I < 0.012 (0.000-0.034) ng/mL NT-Pro-B Natriuret Pep (0-1800) pg/mL Serum Total Protein (6.3-8.2) g/dL Albumin (3.5-5.0) g/dL Influenza Type A Ag (NEGATIVE) Influenza Type B Ag (NEGATIVE) RSV (PCR) (Negative) Streptococcus Screen NEGATIVE (Negative) Slides for Path Review 12/15/17 12/15/17 Range/Units 18:50 18:50 WBC 5.3 (4.0-10.5) K/mm3 RBC 3.48 L (4.1-5.6) M/mm3 Hgb 9.4 L (12.5-18.0) gm/dl Hct 30.5 L (42-50) % MCV 87.6 (78-100) fl MCH 27.0 (26-32) pg MCHC 30.8 L (32-36) g/dl RDW 17.6 H (11.5-14.0) % Plt Count 198 (150-450) K/mm3 MPV 10.5 H (6-9.5) fl Gran % 69.2 H (36.0-66.0) % Lymphocytes % 16.4 L (24.0-44.0) % Monocytes % 12.1 H (0.0-12.0) % Eosinophils % 1.9 (0.00-5.0) % Basophils % 0.4 (0.0-0.4) % Basophils # 0.02 (0-0.4) D-Dimer (215-500) ng/mL Sodium 143 (137-145) mmol/L Potassium 3.9 (3.5-5.1) mmol/L Chloride 106 (98-107) mmol/L Carbon Dioxide 21 L (22-30) mmol/L Anion Gap 19.4 H (5-15) MEQ/L BUN 29 H (9-20) mg/dL Creatinine 2.22 H (0.66-1.25) mg/dL Estimated GFR 31 ML/MIN Glucose 132 H (74-106) mg/dL Lactic Acid (0.4-2.0) Calcium 9.0 (8.4-10.2) mg/dL Total Bilirubin 0.90 (0.2-1.3) mg/dL AST 62 H (17-59) U/L ALT 80 H (0-50) U/L Alkaline Phosphatase 79 (38-126) U/L Troponin I (0.000-0.034) ng/mL NT-Pro-B Natriuret Pep 51467 H (0-1800) pg/mL Serum Total Protein 6.8 (6.3-8.2) g/dL Albumin 3.6 (3.5-5.0) g/dL Influenza Type A Ag (NEGATIVE) Influenza Type B Ag (NEGATIVE) RSV (PCR) (Negative) Streptococcus Screen (Negative) Slides for Path Review YES - Progress Progress: improved, re-examined Air Movement: good Progress Note: 12/15/17 23:14 discussed with pt that he may have blood clot and in lung and the risk for bleeding with AC , and he wishes to proceed until we can obtain VQ scan to rule out; we cannot perform CT A with renal fxn elevated; discussed with Dr. Avelar covering and all agree best to have in to AC for possible PE and ongoing infection under treatment Blood Culture(s) Obtained: No Antibiotics given: Yes Discussed with : Serge Will see patient in: hospital (observation) Counseled pt/family regarding: lab results, diagnosis, need for follow-up, rad results - Departure Time of Disposition: 23:17 Departure Disposition: Observation Clinical Impression: Discitis of lumbar region, Osteomyelitis of lumbar spine, Presence of combination internal cardiac defibrillator (ICD) and pacemaker, COPD (chronic obstructive pulmonary disease), Anemia, D-dimer, elevated, Shortness of breath Condition: Good Critical Care Time: No Referrals: RONALD ZUÑIGA MD [Primary Care Provider] - Instructions: Chronic Obstructive Pulmonary Disease
[2017-12-15] MEDS ORDERED: Sodium Chloride 0.9% 1000 ML 1,000 ML IV SCH (18:45)
[2017-12-15 19:07] LABS: BASOPHIL % 0.4 % (0.0-0.4); Basophil (Absolute #) 0.02 (0-0.4); Eosinophil % 1.9 % (0.00-5.0); Granulocyte Absolute (ANC) 3.68 (1.4-6.9); Granulocytes % 69.2 % (36.0-66.0); Hematocrit 30.5 % (42-50); Hemoglobin 9.4 gm/dl (12.5-18.0); Lymphocyte (Absolute #) 0.87 (1.0-4.6); Lymphocytes % 16.4 % (24.0-44.0); Mean Cell Volume 87.6 fl (78-100); Mean Corpuscular Hgb Concent. 30.8 g/dl (32-36); Mean Platelet Volume 10.5 fl (6-9.5); Monocyte (Absolute #) 0.64 (0.0-1.3); Monocytes % 12.1 % (0.0-12.0); Platelet Count 198 K/mm3 (150-450); Red Blood Count 3.48 M/mm3 (4.1-5.6); Red Cell Distribution Width 17.6 % (11.5-14.0); White Blood Count 5.3 K/mm3 (4.0-10.5)
[2017-12-15] MEDS ORDERED: ROCEPHIN 1 Gm-D5w 50 ml Bag** 1 G/50 ML IVPB IV ONE (19:08)
[2017-12-15] MEDS ORDERED: Sodium Chloride 0.9% 1000 ML 1,000 ML ONE (19:08)
[2017-12-15] MEDS ORDERED: solu-MEDROL 125 MG ONE (19:08)
[2017-12-15 19:33] LABS: ALBUMIN 3.6 g/dL (3.5-5.0); ANION GAP 19.4 MEQ/L (5-15); BILIRUBIN,TOTAL 0.9 mg/dL (0.2-1.3); Creatinine 1 2.22 mg/dL (0.66-1.25); Potassium 3.9 mmol/L (3.5-5.1); Total Protein 6.8 g/dL (6.3-8.2)
[2017-12-15 19:47] LABS: INFLUENZA A NEGATIVE (NEGATIVE); INFLUENZA B NEGATIVE (NEGATIVE); RESPIRATORY SYNCTIAL VIRUS NEGATIVE (Negative)
[2017-12-15 19:53] LABS: Slide Review 1 YES
--- NOTE | 2017-12-15 21:33 | XRAY ---
Indication: Short of breath. Comparison: September 21, 2017. Portable chest again demonstrates right perihilar interstitial alveolar opacities improved with stable right base calcified granuloma, left AICD, and right arm PICC line. Remaining heart and left lung unremarkable.
[2017-12-16 00:46] LABS: Appearance CLEAR (CLEAR)
[2017-12-16 00:47] LABS: Bilirubin NEGATIVE (NEGATIVE); Blood NEGATIVE Ery/ul (0-5); Glucose NEGATIVE (NEGATIVE); Ketones NEGATIVE (NEGATIVE); Leukocyte Esterase NEGATIVE (NEGATIVE); Nitrite NEGATIVE (NEGATIVE); Protein,Urine Dip NEGATIVE (Negative); Urobilinogen NORMAL mg/dL (0-1)
[2017-12-16] MEDS ORDERED: MORPHINE SULFATE 4 MG INJ IV PRN (00:58)
[2017-12-16] MEDS ORDERED: Zofran 4 MG/2 ML VIAL IV PRN (00:58)
[2017-12-16] MEDS ORDERED: TYLENOL 325 MG PO PRN (00:58)
[2017-12-16] MEDS ORDERED: Ativan 2 MG/1 ML VIAL IV PRN (01:17)
[2017-12-16] MEDS: Lactated Ringers 1,000 ML IV SCH ×2 (03:02→23:14)
[2017-12-16 05:25] LABS: Basophil (Absolute #) 0 (0-0.4); Eosinophil (Absolute #) 0 (0-0.5); Granulocyte Absolute (ANC) 2.64 (1.4-6.9); Hematocrit 28.2 % (42-50); Hemoglobin 8.6 gm/dl (12.5-18.0); Lymphocyte (Absolute #) 0.32 (1.0-4.6); Lymphocytes % 10.7 % (24.0-44.0); Mean Cell Volume 87.6 fl (78-100); Mean Corpuscular Hemoglobin 26.7 pg (26-32); Mean Corpuscular Hgb Concent. 30.5 g/dl (32-36); Mean Platelet Volume 11.1 fl (6-9.5); Monocyte (Absolute #) 0.04 (0.0-1.3); Monocytes % 1.3 % (0.0-12.0); Platelet Count 169 K/mm3 (150-450); Red Blood Count 3.22 M/mm3 (4.1-5.6); Red Cell Distribution Width 17.5 % (11.5-14.0)
[2017-12-16 05:35] LABS: ANION GAP 20.4 MEQ/L (5-15); BILIRUBIN,TOTAL 0.6 mg/dL (0.2-1.3); Calcium 8.5 mg/dL (8.4-10.2); Creatinine 1 2.15 mg/dL (0.66-1.25); Potassium 3.8 mmol/L (3.5-5.1); Total Protein 6.1 g/dL (6.3-8.2)
--- NOTE | 2017-12-16 07:44 | PCM.HP ---
History of Present Illness - Chief Complaint Chief Complaint: Shortness of Breath, acute with elevated D-Dimer post-op Date: 12/16/17 History of Present Illness: is a 77 year old male. 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 He began having shortness of breath earlier in the week an dhad a chest xray on at [facility] showing evidence of "Patchy bilateral lung opacities" "consistent with multi-focal pneumonia" per the [facility] radiology report. he was started on levaquin but is already on cefepime and vancomycin iv for the osteomyelitis. He states he had persistent and worsening shortness of breath so was sent to the ED yesterday. He feels like he is unable to get anything in to drink because his mouth is too dry. he is very anxious and is afraid he is going to . He states earlier this week he was praying for god to let him . he continues to deny chest pain only shortness of breath. He has back pain post operatively. - Review of Systems Constitutional: Fatigue, No Fever, No Chills Eyes: No Discharge Ears, Nose, & Throat: Mouth Pain, Throat Pain, No Ear Pain, No Ear Discharge, No Nose Congestion, No Sinus Drainage, No Stridor Respiratory: Short Of Breath, No Cough Cardiac: No Chest Pain, No Edema, No Palpitations Abdominal/Gastrointestinal: Constipation, No Abdominal Pain, No Nausea, No Vomiting, No Diarrhea Genitourinary Symptoms: No Dysuria, No Frequency, No Hematuria Musculoskeletal: Arthralgias, Back Pain, No Joint Redness Skin: No Rash Neurological: No Focal Weakness, No Headache Psychological: Anxiety, Depression, Emotional Lability, Mood Changes, No Hallucinations Endocrine: No Polydipsia Hematologic/Lymphatic: Anemia Medications & Allergies Home Medications: Home Medication List Carvedilol 6.25 mg [Coreg 6.25 MG] 6.25 mg PO BID 08/08/17 [History Confirmed 12/16/17] Potassium Chloride 10 Meq Tab* [Klor Con 10 MEQ] 20 meq PO DAILY 08/08/17 [ History Confirmed 12/16/17] Rivaroxaban [Xarelto] 20 mg PO DAILY 08/22/17 [History Confirmed 12/16/17] Simvastatin 20Mg [Zocor 20Mg] 10 mg PO HS 08/22/17 [History Confirmed ] Amiodarone HCl 200 mg PO BID 09/18/17 [History Confirmed 12/16/17] Budesonide/Formoterol Fumarate [Symbicort 160-4.5 Mcg Inhaler] 10.2 gm IH BID [History Confirmed 12/16/17] Cholecalciferol (Vitamin D3) [Vitamin D3] 5,000 unit PO DAILY #0 09/24/17 [Rx Confirmed 12/16/17] Acetaminophen 325 mg [Tylenol 325 mg] 650 mg PO Q4H PRN 12/16/17 [History Confirmed 12/16/17] Albuterol 2.5 mg/3 ml Neb [Proventil 2.5 mg/3 ml Neb] 2.5 mg IH Q2H PRN [History Confirmed 12/16/17] Albuterol 2.5 mg/3 ml Neb [Proventil 2.5 mg/3 ml Neb] 2.5 mg IH QID PRN [History Confirmed 12/16/17] Ascorbic Acid 500 mg [Vitamin C 500 MG] 500 mg PO DAILY 12/16/17 [History Confirmed 12/16/17] Aspirin 81 mg PO DAILY 12/16/17 [History Confirmed 12/16/17] Bisacodyl 10 mg [Dulcolax 10 MG SUPP] 10 mg VT Q12H PRN PRN 12/16/17 [ History Confirmed 12/16/17] Bismuth Subsalicylate [Pepto-Bismol] 10 ml PO Q4H PRN 12/16/17 [History Confirmed 12/16/17] Calcium Carbonate [Tums] 1,000 mg PO Q4H PRN 12/16/17 [History Confirmed ] Cefepime HCl 2 gm [Maxipime 2 GM] 2 gm IV Q8H 12/16/17 [History Confirmed ] Cyanocobalamin (Vitamin B-12) [Vitamin B12] 500 mcg PO DAILY 12/16/17 [History Confirmed 12/16/17] Diazepam 5 mg [Valium 5 MG] 5 mg PO Q8H 12/16/17 [History Confirmed ] Ferrous Sulfate 325 mg [Feosol 325 mg] 325 mg PO DAILY 12/16/17 [History Confirmed 12/16/17] Furosemide 40 mg [Lasix 40 MG] 40 mg PO DAILY 12/16/17 [History Confirmed 12/16/17] L.acidoph,Paracasei, B.lactis [Probiotic] 1 each PO BID 12/16/17 [History Confirmed 12/16/17] Levofloxacin [Levaquin] 500 mg PO DAILY 12/16/17 [History Confirmed 12/16/17] Levothyroxine Sodium 25 Mcg [Synthroid 25 Mcg] 25 mcg PO DAILY 12/16/17 [ History Confirmed 12/16/17] Mag Hydrox/Al Hydrox/Simeth [Maalox Es 30 ml Unit Dose] 30 ml PO Q2H PRN 12/16/17 [History Confirmed 12/16/17] Magnesium Hydroxide [Milk of Magnesia] 10 ml PO DAILY 12/16/17 [History Confirmed 12/16/17] Meclizine HCl 12.5 mg PO Q6H PRN 12/16/17 [History Confirmed 12/16/17] Melatonin/Pyridoxine HCl (B6) [Melatonin 3 mg Tablet] 6 mg PO DAILY 12/16/17 [ History Confirmed 12/16/17] Mirtazapine [Remeron] 15 tab PO DAILY 12/16/17 [History Confirmed 12/16/17] Multivit with Iron,Minerals [Compete] 1 tab PO DAILY 12/16/17 [History Confirmed 12/16/17] Omeprazole 20 MG [Prilosec 20 mg] 20 mg PO BID 12/16/17 [History Confirmed 12/16] Oxycodone HCl/Acetaminophen [Percocet 10-325 mg Tablet] 1 tab PO Q4H PRN [History Confirmed 12/16/17] Oxycodone HCl/Acetaminophen [Percocet 10-325 mg Tablet] 2 tab PO Q4H PRN [History Confirmed 12/16/17] Polyethylene Glycol 3350 17 gm [Miralax Powder 17GM PACKET] 17 gm PO DAILY [History Confirmed 12/16/17] Promethazine HCl 25 mg [Phenergan 25 mg] 25 mg PO Q8H PRN 12/16/17 [ History Confirmed 12/16/17] Sennosides/Docusate Sodium [Senna-S Tablet] 2 tab PO DAILY 12/16/17 [History Confirmed 12/16/17] Sodium Chloride 1 gm PO BID 12/16/17 [History Confirmed 12/16/17] Tamsulosin HCl 0.4 mg [Flomax 0.4 MG] 0.4 mg PO DAILY 12/16/17 [History Confirmed 12/16/17] Ubidecarenone [Coenzyme Q10] 100 mg PO DAILY 12/16/17 [History Confirmed ] Vancomycin HCl in Dextrose 5 % [Vancomycin 1.25 Gram/250Ml-D5w] 1.25 gm IV Q18H 12/16/17 [History Confirmed 12/16/17] Allergies/Adverse Reactions: Allergies Allergy/AdvReac Type Severity Reaction Status Date / Time No Known Drug Allergies Allergy Verified 12/16/17 01:22 - Past Medical History Past Medical History: Yes Neurological History: No Pertinent History ENT History: No Pertinent History Cardiac History: Coronary Artery Disease Respiratory History: CHF, COPD Endocrine Medical History: No Pertinent History Musculoskelatal History: Arthritis GI Medical History: No Pertinent History Pyscho-Social History: No Pertinent History Male Reproductive Disorders: Prostate Problems - Past Surgical History Past Surgical History: Yes Neuro Surgical History: No Pertinent History Cardiac History: Angioplasty, Cardiac Catheterization, Cardiac Stent, Internal Defibrillator, Pacemaker Respiratory Surgery: No Pertinent History GI Surgical History: Appendectomy Genitourinary Surgical Hx: No Pertinent History Musculskeletal Surgical Hx: No Pertinent History Male Surgical History: No Pertinent History - Social History Smoking Status: Former smoker Exposure to second hand smoke: No Alcohol: Occasionally Drug Use: none - Physical Exam Vital Signs: Vital Signs - 24 hr Temp Pulse Resp BP Pulse Ox 12/16/17 05:00 97.3 F 59 L 20 107/55 93 L 12/16/17 03:27 97.4 F 61 134/64 96 12/16/17 02:15 96 12/16/17 02:10 61 16 96 12/16/17 02:00 20 12/16/17 01:30 97.4 F 62 20 134/64 96 12/16/17 00:58 96 12/16/17 00:33 61 14 129/86 94 L 12/15/17 23:50 61 18 133/84 94 L 12/15/17 23:07 63 20 141/73 94 L 12/15/17 22:13 64 13 124/80 93 L 12/15/17 20:06 20 124/92 93 L 12/15/17 19:21 62 17 142/83 96 12/15/17 19:19 61 14 98 12/15/17 18:49 99 12/15/17 18:08 97.1 F Oxygen-Last 24 hours O2 Percentage 4 Liters = 36% O2 Percentage 3 Liters = 32% O2 Percentage 4 Liters = 36% O2 Percentage 2 Liters = 28% General Appearance: mild distress Neurologic Exam: alert, oriented x 3, cooperative, other (he appears depressed he is crying at times talking about his recent surgery and [facility] stay praying to god intermittently throughout the history) Ears, Nose, Throat Exam: dry mucous membranes (he has very dry membranes with black material coating it all from some non nicotine snuff he uses), No pharyngeal erythema Neck Exam: non-tender, supple, No JVD Respiratory Exam: normal breath sounds, lungs clear, other (actually talks well with no shortness of breath and rapidly with no desat while off the oxygen), No respiratory distress, No crackles/rales Cardiovascular Exam: regular rate/rhythm, murmur, other (paced rhythm) Gastrointestinal/Abdomen Exam: soft, normal bowel sounds, No tenderness, No distention, No mass, No guarding Back Exam: other (long thoracolumbar incision clean and dry with johan in place) Extremity Exam: No calf tenderness, No pedal edema Skin Exam: warm, dry, No rash Results - Labs Lab/Micro Results: Lab Results-Last 24 Hours 12/16/17 12/16/17 12/16/17 Range/Units 01:00 04:35 04:35 WBC 3.0 L (4.0-10.5) K/mm3 RBC 3.22 L (4.1-5.6) M/mm3 Hgb 8.6 L (12.5-18.0) gm/dl Hct 28.2 L (42-50) % MCV 87.6 (78-100) fl MCH 26.7 (26-32) pg MCHC 30.5 L (32-36) g/dl RDW 17.5 H (11.5-14.0) % Plt Count 169 (150-450) K/mm3 MPV 11.1 H (6-9.5) fl Gran % 88.0 H (36.0-66.0) % Lymphocytes % 10.7 L (24.0-44.0) % Monocytes % 1.3 (0.0-12.0) % Eosinophils % 0.0 (0.00-5.0) % Basophils % 0.0 (0.0-0.4) % Basophils # 0 (0-0.4) Sodium (137-145) mmol/L Potassium (3.5-5.1) mmol/L Chloride (98-107) mmol/L Carbon Dioxide (22-30) mmol/L Anion Gap (5-15) MEQ/L BUN (9-20) mg/dL Creatinine (0.66-1.25) mg/dL Estimated GFR ML/MIN Glucose (74-106) mg/dL Lactic Acid (0.4-2.0) Calcium (8.4-10.2) mg/dL Total Bilirubin (0.2-1.3) mg/dL AST (17-59) U/L ALT (0-50) U/L Alkaline Phosphatase (38-126) U/L Troponin I < 0.012 < 0.012 (0.000-0.034) ng/mL Serum Total Protein (6.3-8.2) g/dL Albumin (3.5-5.0) g/dL 18 12/16/17 Range/Units 04:35 07:00 WBC (4.0-10.5) K/mm3 RBC (4.1-5.6) M/mm3 Hgb (12.5-18.0) gm/dl Hct (42-50) % MCV (78-100) fl MCH (26-32) pg MCHC (32-36) g/dl RDW (11.5-14.0) % Plt Count (150-450) K/mm3 MPV (6-9.5) fl Gran % (36.0-66.0) % Lymphocytes % (24.0-44.0) % Monocytes % (0.0-12.0) % Eosinophils % (0.00-5.0) % Basophils % (0.0-0.4) % Basophils # (0-0.4) Sodium 140 (137-145) mmol/L Potassium 3.8 (3.5-5.1) mmol/L Chloride 106 (98-107) mmol/L Carbon Dioxide 18 L (22-30) mmol/L Anion Gap 20.4 H (5-15) MEQ/L BUN 32 H (9-20) mg/dL Creatinine 2.15 H (0.66-1.25) mg/dL Estimated GFR 32 ML/MIN Glucose 226 H (74-106) mg/dL Lactic Acid 1.5 (0.4-2.0) Calcium 8.5 (8.4-10.2) mg/dL Total Bilirubin 0.60 (0.2-1.3) mg/dL AST 44 (17-59) U/L ALT 67 H (0-50) U/L Alkaline Phosphatase 68 (38-126) U/L Troponin I (0.000-0.034) ng/mL Serum Total Protein 6.1 L (6.3-8.2) g/dL Albumin 3.0 L (3.5-5.0) g/dL - Other Procedures and Tests Respiratory Therapy 12/16/17 02:09 neb [Respiratory Nebulizer] PRN Assessment/Plan (1) Shortness of breath Current Visit: Yes Status: Acute Assessment & Plan: he appears very anxious and depressed he was treated for pneumonia with [facility] x[facility] 12[facility]11 and is still on levaquin which was added to his cefepime and vancomycin for his osteomyelitis this appears improved likely compared to the report from the 12/11 xray on our xray today he does not appear to have acute decompensation of his heart failure In ED Dr. De La Cruz was concerned over possible PE, however the patient has been on therapeutic xarelto at 20 mg daily and 81 mg aspirin post operatively. we are unable to get VQ scan today and will monitor his symptoms and continue his chronic anticoagulation and check VQ if necessary tomorrow. continue his antibiotics from the ECF with renal adjusted dosing for creatinine clearance of 24 vancomycin, cefepime and levaquin for acute kidney injury with his hx of prostate problems will check renal ultrasound and hold lasix monitor fluid status curently on exam he appears very dry. Vancomycin trough ordered with possible vancomycin induced renal injury gentle hydration with LR given his chronic chf. Code(s): R06.02 - SHORTNESS OF BREATH (2) D-dimer, elevated Current Visit: Yes Status: Acute Code(s): R79.89 - OTHER SPECIFIED ABNORMAL FINDINGS OF BLOOD CHEMISTRY (3) Acute kidney injury Current Visit: Yes Status: Acute Code(s): N17.9 - ACUTE KIDNEY FAILURE, UNSPECIFIED (4) 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 Code(s): M46.26 - OSTEOMYELITIS OF [place], LUMBAR REGION (5) CAD (coronary artery disease) Current Visit: Yes Status: Chronic Code(s): I25.10 - ATHSCL HEART DISEASE OF [place] CORONARY ARTERY W/O ANG PCTRS (6) Presence of combination internal cardiac defibrillator (ICD) and pacemaker Current Visit: Yes Status: Chronic Code(s): Z95.810 - PRESENCE OF AUTOMATIC (IMPLANTABLE) CARDIAC DEFIBRILLATOR (7) Anemia Current Visit: Yes Status: Chronic Code(s): D64.9 - ANEMIA, UNSPECIFIED (8) COPD (chronic obstructive pulmonary disease) Current Visit: Yes Status: Chronic
[2017-12-16] MEDS ORDERED: OXYCODONE-ACETAMINOPHEN 10-325 PO PRN (08:17)
[2017-12-16] MEDS ORDERED: Dulcolax 10 MG SUPP PR PRN (08:17)
[2017-12-16] MEDS ORDERED: PROVENTIL 2.5 MG/3 ML NEB IH PRN (08:17)
[2017-12-16] MEDS ORDERED: PHENERGAN 25 MG PO PRN (08:17)
[2017-12-16] MEDS ORDERED: VANCOMYCIN HCL IN DEXTROSE IV SCH (08:30)
[2017-12-16] MEDS ORDERED: PROVENTIL 2.5 MG/3 ML NEB IH SCH (08:30)
[2017-12-16] MEDS ORDERED: [UNRECOGNIZED DRUG - OTHER] IV SCH (08:30)
[2017-12-16] MEDS ORDERED: MEDICATION INTERVENTION PO SCH ×2 (08:45)
[2017-12-16] MEDS: NovoLIN R SQ PRN ×4 (09:55→23:41)
[2017-12-16] MEDS: XARELTO 10 MG TABLET PO SCH (09:55)
[2017-12-16] MEDS: VITAMIN D PO SCH (09:55)
[2017-12-16] MEDS: Vitamin C 500 MG PO SCH (09:55)
[2017-12-16] MEDS: OXYCODONE-ACETAMINOPHEN 10-325 PO PRN ×2 (09:57→12:00)
[2017-12-16] MEDS: Klor Con 10 MEQ PO SCH (09:59)
[2017-12-16] MEDS ORDERED: NON-FORMULARY ITEM (L.Acidoph,Paracasei, B.Lactis [Probiotic] 1 EACH) PO SCH (10:00)
[2017-12-16] MEDS ORDERED: MIRTAZAPINE PO SCH (10:00)
[2017-12-16] MEDS ORDERED: UBIDECARENONE 100 MG PO SCH (10:00)
[2017-12-16] MEDS ORDERED: Vancomycin 1GM/ Ns 250ML*** 1 GM/250 ML IVPB IV SCH (10:00)
[2017-12-16] MEDS ORDERED: Maxipime 2 GM IV SCH (10:00)
[2017-12-16] MEDS ORDERED: NON-FORMULARY ITEM (Cholecalciferol (Vitamin D3) [Vitamin D3] 5,000 UNIT) PO SCH (10:00)
[2017-12-16] MEDS ORDERED: CYANOCOBALAMIN 500 MCG PO SCH (10:00)
[2017-12-16] MEDS ORDERED: NON-FORMULARY ITEM (Budesonide/Formoterol Fumarate [Symbicort 160-4.5 Mcg Inhaler] 10.2 GM IH SCH (10:00)
[2017-12-16] MEDS ORDERED: PYRIDOXINE HCL PO SCH (10:00)
[2017-12-16] MEDS ORDERED: NON-FORMULARY ITEM (Aspirin [Aspirin] 81 MG) PO SCH (10:00)
[2017-12-16] MEDS ORDERED: MELATONIN PO SCH (10:00)
[2017-12-16] MEDS: Miralax Powder 17GM PACKET PO SCH (10:00)
[2017-12-16] MEDS: Valium 5 MG PO SCH ×3 (10:01→23:01)
[2017-12-16] MEDS: Flomax 0.4 MG PO SCH (10:01)
[2017-12-16] MEDS: Acidophilus TABLET PO SCH ×2 (10:02→22:59)
[2017-12-16] MEDS: FEOSOL 325 MG PO SCH (10:02)
[2017-12-16] MEDS: ECOTRIN 81 MG PO SCH (10:02)
[2017-12-16] MEDS: Coreg 6.25 MG PO SCH ×2 (10:02→22:59)
[2017-12-16] MEDS: Levofloxacin 250MG Tablet PO SCH (10:02)
[2017-12-16] MEDS: Protonix 40MG Tablet PO SCH ×2 (10:02→23:01)
[2017-12-16] MEDS: SYNTHROID 25 MCG PO SCH (10:02)
[2017-12-16] MEDS: Senokot-S Tablet PO SCH (10:02)
[2017-12-16] MEDS: Cordarone 200 MG PO SCH ×2 (10:02→23:00)
[2017-12-16] MEDS: MAXIPIME 1 GM** 1 G in Sodium Chloride 100ML MINI-BAG PLUS 100 ML IV SCH (10:03)
[2017-12-16] MEDS: Vitamin B-12 500 MCG PO SCH (10:03)
[2017-12-16 12:27] LABS: Slide Review 1 YES
[2017-12-16] MEDS: Zocor 10MG PO SCH (23:00)
[2017-12-16] MEDS: REMERON 30 MG PO SCH (23:00)
[2017-12-16] MEDS: VANCOCIN 1 GM VIAL*** 1 GM in Sodium Chloride 0.9% 250 ML 250 ML IV SCH (23:06)
[2017-12-17] MEDS: Valium 5 MG PO SCH ×3 (05:07→21:25)
[2017-12-17 06:01] LABS: Granulocyte Absolute (ANC) 5.82 (1.4-6.9); Hematocrit 31.5 % (42-50); Hemoglobin 9.6 gm/dl (12.5-18.0); Mean Cell Volume 87.7 fl (78-100); Mean Corpuscular Hemoglobin 26.7 pg (26-32); Mean Corpuscular Hgb Concent. 30.5 g/dl (32-36); Mean Platelet Volume 11.5 fl (6-9.5); Platelet Count 187 K/mm3 (150-450); Red Blood Count 3.59 M/mm3 (4.1-5.6); Red Cell Distribution Width 17.6 % (11.5-14.0); White Blood Count 7.8 K/mm3 (4.0-10.5)
[2017-12-17 07:04] LABS: ALBUMIN 3.3 g/dL (3.5-5.0); ANION GAP 18.7 MEQ/L (5-15); BILIRUBIN,TOTAL 0.5 mg/dL (0.2-1.3); Calcium 8.6 mg/dL (8.4-10.2); Creatinine 1 2.3 mg/dL (0.66-1.25); Total Protein 6.4 g/dL (6.3-8.2)
[2017-12-17 07:45] LABS: ANISOCYTOSIS 2+; Lymphocytes 10 % (24-44); Monocyte 2 % (0.0-12.0); Neutrophils 88 % (36.-66.); Platelet Estimate NORMAL (NORMAL); Poikilocytosis 1+; Total Cells Counted 100
--- NOTE | 2017-12-17 08:51 | PCM.NOTE ---
Date and Time: 12/17/17 0848 Subjective Assessment: patient with no new complaints or concerns today, no chest pain. breathing seems stable at this time. Objective Exam General Appearance: no apparent distress, thin Neurologic Exam: alert Skin Exam: normal color, warm, dry Respiratory Exam: normal breath sounds, lungs clear, No respiratory distress Cardiovascular Exam: regular rate/rhythm, normal heart sounds Gastrointestinal/Abdomen Exam: soft, No tenderness, No mass Extremity Exam: normal inspection, normal range of motion OBJECTIVE DATA Vital Signs: Vital Signs - 24 hr Temp Pulse Resp BP Pulse Ox 12/17/17 07:30 98 F 66 20 130/60 96 12/17/17 04:15 97.8 F 63 20 125/58 96 12/17/17 00:08 98.2 F 57 L 24 112/59 98 12/16/17 23:35 86 18 96 12/16/17 19:45 98 F 65 20 124/69 98 12/16/17 16:34 97.6 F 76 18 102/60 97 12/16/17 13:00 97.3 F 129 H 20 121/66 99 12/16/17 12:00 20 12/16/17 11:49 93 L Oxygen-Last 24 hours O2 Percentage 4 Liters = 36% O2 Percentage 4 Liters = 36% O2 Percentage 4 Liters = 36% O2 Percentage 4 Liters = 36% O2 Percentage 4 Liters = 36% O2 Percentage 4 Liters = 36% Pain Assessment - Last Documented Pain Intensity 0 Pain Scale Used 0-10 Pain Scale Intake and Output: Intake & Output 12/14/17 12/15/17 12/16/17 12/17/17 11:59 11:59 11:59 11:59 Intake Total 1188 2256 Output Total 325 600 Balance 863 1656 Weight 58.967 kg 58.96 kg Lab Results: Accuchecks Date 12/17/17 Date 12/16/17 Date 12/16/17 Date 12/16/17 Time 07:30 Time 16:30 Time 11:30 Time 04:30 Accucheck Value: 110 Accucheck Value: 199 Accucheck Value: 235 Accucheck Value: 226 Lab Results-Last 24 Hours 12/16/17 12/16/17 12/16/17 Range/Units 04:35 04:35 04:35 WBC (4.0-10.5) K/mm3 RBC (4.1-5.6) M/mm3 Hgb (12.5-18.0) gm/dl Hct (42-50) % MCV (78-100) fl MCH (26-32) pg MCHC (32-36) g/dl RDW (11.5-14.0) % Plt Count (150-450) K/mm3 MPV (6-9.5) fl Segmented Neutrophils (36.-66.) % Lymphocytes (Manual) (24-44) % Monocytes (Manual) (0.0-12.0) % Differential Comment Platelet Estimate (NORMAL) Poikilocytosis Anisocytosis ESR 48 H (0-15) mm/hr Sodium (137-145) mmol/L Potassium (3.5-5.1) mmol/L Chloride (98-107) mmol/L Carbon Dioxide (22-30) mmol/L Anion Gap (5-15) MEQ/L BUN (9-20) mg/dL Creatinine (0.66-1.25) mg/dL Estimated GFR ML/MIN Glucose (74-106) mg/dL Hemoglobin A1c (4.5-6.0) % Calcium (8.4-10.2) mg/dL Total Bilirubin (0.2-1.3) mg/dL AST (17-59) U/L ALT (0-50) U/L Alkaline Phosphatase (38-126) U/L Serum Total Protein (6.3-8.2) g/dL Albumin (3.5-5.0) g/dL Vancomycin Trough 19.62 H (5-10) ug/mL Slides for Path Review YES 12/16/17 12/17/17 12/17/17 Range/Units 04:35 05:12 05:12 WBC 7.8 (4.0-10.5) K/mm3 RBC 3.59 L (4.1-5.6) M/mm3 Hgb 9.6 L (12.5-18.0) gm/dl Hct 31.5 L (42-50) % MCV 87.7 (78-100) fl MCH 26.7 (26-32) pg MCHC 30.5 L (32-36) g/dl RDW 17.6 H (11.5-14.0) % Plt Count 187 (150-450) K/mm3 MPV 11.5 H (6-9.5) fl Segmented Neutrophils 88 H (36.-66.) % Lymphocytes (Manual) 10 L (24-44) % Monocytes (Manual) 2 (0.0-12.0) % Differential Comment ABNORMAL Platelet Estimate NORMAL (NORMAL) Poikilocytosis 1+ Anisocytosis 2+ ESR (0-15) mm/hr Sodium 140 (137-145) mmol/L Potassium 4.0 (3.5-5.1) mmol/L Chloride 105 (98-107) mmol/L Carbon Dioxide 20 L (22-30) mmol/L Anion Gap 18.7 H (5-15) MEQ/L BUN 43 H (9-20) mg/dL Creatinine 2.30 H (0.66-1.25) mg/dL Estimated GFR 29 ML/MIN Glucose 103 (74-106) mg/dL Hemoglobin A1c 6.41 H (4.5-6.0) % Calcium 8.6 (8.4-10.2) mg/dL Total Bilirubin 0.50 (0.2-1.3) mg/dL AST 31 (17-59) U/L ALT 54 H (0-50) U/L Alkaline Phosphatase 71 (38-126) U/L Serum Total Protein 6.4 (6.3-8.2) g/dL Albumin 3.3 L (3.5-5.0) g/dL Vancomycin Trough (5-10) ug/mL Slides for Path Review Radiology Exams: Radiology Procedures Category Date Time Status PULMONARY PERF VENTILATION [NUCMED] Routine Exams 12/17/17 08:00 Ordered Renal Ultrasound [KIDNEY] [US] Routine Exams 12/17/17 08:00 Ordered Assessment/Plan (1) Acute kidney injury Current Visit: Yes Status: Acute Assessment & Plan: increase fluid rate from 50 to 70 mL/hr, continue to hold lasix and monitor renal function Code(s): N17.9 - ACUTE KIDNEY FAILURE, UNSPECIFIED (2) D-dimer, elevated Current Visit: Yes Status: Acute Assessment & Plan: awaiting VQ scan, PE unlikely as patient has been on xarelto and aspirin Code(s): R79.89 - OTHER SPECIFIED ABNORMAL FINDINGS OF BLOOD CHEMISTRY (3) Shortness of breath Current Visit: Yes Status: Acute Assessment & Plan: repeat chest xray tomorrow, seems stable at this time Code(s): R06.02 - SHORTNESS OF BREATH (4) COPD (chronic obstructive pulmonary disease) Current Visit: Yes Status: Chronic (5) 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 Assessment & Plan: continue home meds from [facility]CF following surgery at [facility] Code(s): M46.26 - OSTEOMYELITIS OF [place], LUMBAR REGION
--- NOTE | 2017-12-17 09:44 | XRAY ---
Indication: Acute kidney injury. Elevated BUN/creatinine. Two-dimensional renal sonogram performed. Comparison: None Both kidneys normal in reniform shape with normal color perfusion right kidney measures 11.2 x 6.0 x 6.3 cm and the left measures 11.6 x 5.8 x 4.6 cm. 1.8 cm right upper pole cortical cyst and 1.4 cm left mid pole cortical cyst. 9 mm right mid renal calculus without hydronephrosis or perinephric fluid. Cortical medullary differentiation preserved without cortical thinning. Images of the urinary bladder unremarkable. Normal left ureteral jet. Right ureteral jet not seen within the allotted exam time. Slightly enlarged prostate gland impresses on the base of the bladder. Incidental abnormal gallbladder demonstrating complex pericholecystic fluid. No gallstones. Impression: 1. Nonobstructing right renal micro-calculus and solitary bilateral renal cysts. 2. Abnormal appearing gallbladder with complex pericholecystic fluid. Rule out acalculous cholecystitis. 3. Enlarged prostate gland.
[2017-12-17] MEDS: XARELTO 10 MG TABLET PO SCH (09:51)
[2017-12-17] MEDS: Vitamin C 500 MG PO SCH (09:53)
[2017-12-17] MEDS: Acidophilus TABLET PO SCH ×2 (09:53→21:25)
[2017-12-17] MEDS: FEOSOL 325 MG PO SCH (09:53)
[2017-12-17] MEDS: Cordarone 200 MG PO SCH ×2 (09:53→21:25)
[2017-12-17] MEDS: SYNTHROID 25 MCG PO SCH (09:53)
[2017-12-17] MEDS: VITAMIN D PO SCH (09:53)
[2017-12-17] MEDS: Protonix 40MG Tablet PO SCH ×2 (09:54→21:25)
[2017-12-17] MEDS: Senokot-S Tablet PO SCH (09:54)
[2017-12-17] MEDS: Levofloxacin 250MG Tablet PO SCH (09:54)
[2017-12-17] MEDS: Klor Con 10 MEQ PO SCH (09:54)
[2017-12-17] MEDS: Miralax Powder 17GM PACKET PO SCH (09:54)
[2017-12-17] MEDS: Coreg 6.25 MG PO SCH ×2 (09:54→21:25)
[2017-12-17] MEDS: Flomax 0.4 MG PO SCH (09:54)
[2017-12-17] MEDS: ECOTRIN 81 MG PO SCH (09:54)
[2017-12-17] MEDS: Vitamin B-12 500 MCG PO SCH (09:55)
[2017-12-17] MEDS: MAXIPIME 1 GM** 1 G in Sodium Chloride 100ML MINI-BAG PLUS 100 ML IV SCH (09:56)
--- NOTE | 2017-12-17 12:32 | XRAY ---
Indication: Central chest pain and short of breath. Elevated d-dimer. Pneumonia. Left-sided AICD. Comparison: None Patient received 5.2 mCi technetium 99 MAA for the perfusion portion of the exam and patient inhaled 37 mCi of aerosolized technetium 99 DTPA. Multiplanar images obtained. Ventilation images demonstrates left-sided AICD photopenic defects. Both lungs demonstrates homogeneous radiopharmaceutical activity without focal perfusion defect. Ventilation images also demonstrates left-sided AICD photopenic defect. Elsewhere low-level homogeneous radiopharmaceutical activity bilaterally with increased central radiopharmaceutical activity favoring chronic obstructive disease. Impression: 1. Ventilation images favoring chronic obstructive disease. 2. Left-sided ventilation and perfusion photopenic defect corresponding to AICD. 3. Otherwise no segmental/subsegmental perfusion defects to suggest pulmonary embolus.
[2017-12-17] MEDS: DUONEB 0.5-3 MG/3 ml Neb IH PRN (15:45)
[2017-12-17] MEDS: NovoLIN R SQ PRN (16:48)
[2017-12-17] MEDS: Lactated Ringers 1,000 ML IV SCH (21:24)
[2017-12-17] MEDS: Zocor 10MG PO SCH (21:25)
[2017-12-17] MEDS: REMERON 30 MG PO SCH (21:25)
[2017-12-17] MEDS ORDERED: TROUGH DRUG LEVELS IJ ONE (21:30)
[2017-12-17] MEDS: VANCOCIN 1 GM VIAL*** 1 GM in Sodium Chloride 0.9% 250 ML 250 ML IV SCH (21:42)
[2017-12-18 05:45] LABS: BASOPHIL % 0.4 % (0.0-0.4); Basophil (Absolute #) 0.02 (0-0.4); Eosinophil (Absolute #) 0.11 (0-0.5); Granulocyte Absolute (ANC) 3.58 (1.4-6.9); Granulocytes % 63.8 % (36.0-66.0); Hematocrit 30.4 % (42-50); Hemoglobin 9.3 gm/dl (12.5-18.0); Lymphocyte (Absolute #) 1.26 (1.0-4.6); Lymphocytes % 22.5 % (24.0-44.0); Mean Cell Volume 87.4 fl (78-100); Mean Corpuscular Hemoglobin 26.7 pg (26-32); Mean Corpuscular Hgb Concent. 30.6 g/dl (32-36); Mean Platelet Volume 11.5 fl (6-9.5); Monocyte (Absolute #) 0.63 (0.0-1.3); Monocytes % 11.3 % (0.0-12.0); Platelet Count 172 K/mm3 (150-450); Red Blood Count 3.48 M/mm3 (4.1-5.6); Red Cell Distribution Width 17.8 % (11.5-14.0); White Blood Count 5.6 K/mm3 (4.0-10.5)
[2017-12-18] MEDS: Valium 5 MG PO SCH ×4 (05:48→23:01)
[2017-12-18 06:05] LABS: ANION GAP 16.7 MEQ/L (5-15); Calcium 8.5 mg/dL (8.4-10.2); Creatinine 1 2.36 mg/dL (0.66-1.25); Potassium 4.3 mmol/L (3.5-5.1)
[2017-12-18 06:14] LABS: Slide Review 1 YES
--- NOTE | 2017-12-18 08:35 | XRAY ---
Indication: Short of breath. CHF. COPD. Comparison: December 15, 2017. Portable chest demonstrates little improvement in the right perihilar interstitial alveolar opacities. Heart is not enlarged. Stable left base fibrosis/scarring, calcified granulomas, left AICD, and right PICC line. No new cardiopulmonary abnormalities.
--- NOTE | 2017-12-18 09:19 | PCM.NOTE ---
Date and Time: 12/18/17914 Subjective Assessment: He is not oriented this morning, asks "Where am I?" and thinks the year is in the . Is able to give some of his history. C/o being SOB. VQ scan is negative yesterday. - Review of Systems Constitutional: No Fever Objective Exam General Appearance: no apparent distress, alert Neurologic Exam: oriented x 3, cooperative Skin Exam: normal color, warm, dry, No rash Ears, Nose, Throat Exam: moist mucous membranes (has been chewing Skoal) Neck Exam: normal inspection Respiratory Exam: normal breath sounds, lungs clear, No crackles/rales, No rhonchi, No wheezing Cardiovascular Exam: regular rate/rhythm, normal heart sounds, No murmur Gastrointestinal/Abdomen Exam: soft, normal bowel sounds, No tenderness, No distention, No guarding, No rebound Extremity Exam: normal inspection, No pedal edema, No swelling Back Exam: other (dressing intact, clean, dry) OBJECTIVE DATA Vital Signs: Vital Signs - 24 hr Temp Pulse Resp BP Pulse Ox 12/18/17 08:00 97.7 F 73 18 121/68 96 12/18/17 07:41 62 16 97 12/18/17 04:00 97.4 F 63 20 126/69 95 12/18/17 01:45 62 16 98 12/18/17 00:00 97.8 F 97 H 18 107/53 93 L 12/17/17 21:59 69 22 96 12/17/17 20:00 98.3 F 87 16 148/64 94 L 12/17/17 16:28 97.9 F 63 24 116/62 95 12/17/17 16:00 24 12/17/17 15:45 77 22 97 12/17/17 12:31 97.4 F 70 22 136/70 95 12/17/17 12:00 22 Oxygen-Last 24 hours O2 Percentage 4 Liters = 36% O2 Percentage 3 Liters = 32% O2 Percentage 4 Liters = 36% O2 Percentage 4 Liters = 36% Pain Assessment - Last Documented Pain Intensity 0 Pain Scale Used 0-10 Pain Scale Intake and Output: Intake & Output 12/15/17 12/16/17 12/17/17 12/18/17 11:59 11:59 11:59 11:59 Intake Total 1188 2256 2628 Output Total 781 223 4733 Balance 863 7637 8658 Weight 58.967 kg 58.96 kg 59.3 kg Lab Results: Accuchecks Date 12/17/17 Date 12/17/17 Date 12/17/17 Time 21:45 Time 16:30 Time 11:30 Accucheck Value: 122 Accucheck Value: 103 Accucheck Value: 154 Accucheck Value: 107 Lab Results-Last 24 Hours 12/17/17 12/18/17 12/18/17 Range/Units 21:38 04:46 04:46 WBC 5.6 (4.0-10.5) K/mm3 RBC 3.48 L (4.1-5.6) M/mm3 Hgb 9.3 L (12.5-18.0) gm/dl Hct 30.4 L (42-50) % MCV 87.4 (78-100) fl MCH 26.7 (26-32) pg MCHC 30.6 L (32-36) g/dl RDW 17.8 H (11.5-14.0) % Plt Count 172 (150-450) K/mm3 MPV 11.5 H (6-9.5) fl Gran % 63.8 (36.0-66.0) % Lymphocytes % 22.5 L (24.0-44.0) % Monocytes % 11.3 (0.0-12.0) % Eosinophils % 2.0 (0.00-5.0) % Basophils % 0.4 (0.0-0.4) % Basophils # 0.02 (0-0.4) Sodium 139 (137-145) mmol/L Potassium 4.3 (3.5-5.1) mmol/L Chloride 106 (98-107) mmol/L Carbon Dioxide 21 L (22-30) mmol/L Anion Gap 16.7 H (5-15) MEQ/L BUN 45 H (9-20) mg/dL Creatinine 2.36 H (0.66-1.25) mg/dL Estimated GFR 29 ML/MIN Glucose 94 (74-106) mg/dL Calcium 8.5 (8.4-10.2) mg/dL Vancomycin Trough 24.67 H (5-10) ug/mL Slides for Path Review YES Radiology Exams: Radiology Procedures Category Date Time Status CHEST 1 VIEW (PORTABLE) Routine Exams 12/18/17 07:00 Completed PULMONARY PERF VENTILATION [NUCMED] Routine Exams 12/17/17 08:00 Completed Renal Ultrasound [KIDNEY] [US] Routine Exams 12/17/17 08:00 Completed Multi-Disciplinary Progress Notes: Multi-Disciplinary Progress Notes 12/18/17 07:28 Pharmacy Note by LABOR DELIVERY SPECIALIST,PHARM Vanc trough was high at 24.67 last night 12/17 @ 2138. SCr has increased to 2.36. Pharmacy will recheck level and redose vancomycin. Pharmacy will continue to monitor. Initialized on 12/18/17 07:28 - END OF NOTE 12/17/17 11:32 Case Management Note by Jessica Barber LEVEL I WEB APPROVED, NO LEVEL II REQUIRED, H&P FAXED, WELL NAV FAXED TO [facility]. PAPERS IN CHART. Initialized on 12/17/17 11:32 - END OF NOTE Assessment/Plan (1) Pneumonia Current Visit: Yes Status: Acute Qualifiers: Pneumonia type: due to unspecified organism Laterality: right Lung location: middle lobe of lung Qualified Code(s): J18.1 - Lobar pneumonia, unspecified organism Assessment & Plan: Pt is on Levaquin. Still having SOB. Code(s): J18.9 - PNEUMONIA, UNSPECIFIED ORGANISM (2) Acute kidney injury Current Visit: Yes Status: Acute Assessment & Plan: Stable if not a little worse today. Recheck in a.m. Code(s): N17.9 - ACUTE KIDNEY FAILURE, UNSPECIFIED (3) Shortness of breath Current Visit: Yes Status: Acute Assessment & Plan: VQ scan was normal yesterday. 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 Code(s): M46.26 - OSTEOMYELITIS OF [place], LUMBAR REGION (5) CAD (coronary artery disease) Current Visit: Yes Status: Chronic Code(s): I25.10 - ATHSCL HEART DISEASE OF [place] CORONARY ARTERY W/O ANG PCTRS
[2017-12-18] MEDS: VITAMIN D PO SCH (10:15)
[2017-12-18] MEDS: Senokot-S Tablet PO SCH (10:18)
[2017-12-18] MEDS: Levofloxacin 250MG Tablet PO SCH (10:18)
[2017-12-18] MEDS: XARELTO 10 MG TABLET PO SCH (10:18)
[2017-12-18] MEDS: Cordarone 200 MG PO SCH ×2 (10:19→22:59)
[2017-12-18] MEDS: Coreg 6.25 MG PO SCH ×2 (10:19→22:59)
[2017-12-18] MEDS: Protonix 40MG Tablet PO SCH ×2 (10:19→22:59)
[2017-12-18] MEDS: Flomax 0.4 MG PO SCH (10:19)
[2017-12-18] MEDS: Miralax Powder 17GM PACKET PO SCH (10:19)
[2017-12-18] MEDS: SYNTHROID 25 MCG PO SCH (10:19)
[2017-12-18] MEDS: FEOSOL 325 MG PO SCH (10:19)
[2017-12-18] MEDS: Klor Con 10 MEQ PO SCH (10:19)
[2017-12-18] MEDS: ECOTRIN 81 MG PO SCH (10:19)
[2017-12-18] MEDS: Vitamin C 500 MG PO SCH (10:19)
[2017-12-18] MEDS: Acidophilus TABLET PO SCH ×2 (10:19→22:59)
[2017-12-18] MEDS: Vitamin B-12 500 MCG PO SCH (10:20)
[2017-12-18] MEDS: MAXIPIME 1 GM** 1 G in Sodium Chloride 100ML MINI-BAG PLUS 100 ML IV SCH (10:24)
[2017-12-18] MEDS: Advair Hfa 230/21 Mcg COMMON CANISTER IH SCH ×2 (11:25→20:11)
[2017-12-18] MEDS: DUONEB 0.5-3 MG/3 ml Neb IH PRN (12:40)
[2017-12-18] MEDS: Lactated Ringers 1,000 ML IV SCH (20:36)
[2017-12-18] MEDS: REMERON 30 MG PO SCH (22:59)
[2017-12-18] MEDS: NovoLIN R SQ PRN (23:01)
[2017-12-18] MEDS: Zocor 10MG PO SCH (23:01)
[2017-12-19] MEDS: Lactated Ringers 1,000 ML IV SCH ×2 (02:22→06:17)
[2017-12-19] MEDS: Valium 5 MG PO SCH ×3 (06:18→22:22)
[2017-12-19 07:04] LABS: Hematocrit 30.4 % (42-50); Hemoglobin 9.4 gm/dl (12.5-18.0); Mean Cell Volume 87.4 fl (78-100); Mean Corpuscular Hgb Concent. 30.9 g/dl (32-36); Mean Platelet Volume 11.3 fl (6-9.5); Platelet Count 158 K/mm3 (150-450); Red Blood Count 3.48 M/mm3 (4.1-5.6); Red Cell Distribution Width 18.2 % (11.5-14.0); White Blood Count 5.6 K/mm3 (4.0-10.5)
[2017-12-19 07:13] LABS: ANION GAP 15.7 MEQ/L (5-15); BILIRUBIN,TOTAL 0.8 mg/dL (0.2-1.3); Calcium 8.8 mg/dL (8.4-10.2); Creatinine 1 2.32 mg/dL (0.66-1.25); Potassium 3.9 mmol/L (3.5-5.1); Total Protein 5.8 g/dL (6.3-8.2)
[2017-12-19] MEDS: Advair Hfa 230/21 Mcg COMMON CANISTER IH SCH ×2 (08:24→20:47)
[2017-12-19] MEDS: DUONEB 0.5-3 MG/3 ml Neb IH PRN ×2 (08:24→11:25)
--- NOTE | 2017-12-19 08:43 | PCM.NOTE ---
Date and Time: 12/19/17 0842 Subjective Assessment: patient states he feels terrible, short of breath and feeling poorly. RT gave a neb and he won't keep his oxygen on Objective Exam General Appearance: no apparent distress, alert Skin Exam: normal color, warm, dry Respiratory Exam: normal breath sounds, lungs clear, No respiratory distress Cardiovascular Exam: regular rate/rhythm, normal heart sounds Gastrointestinal/Abdomen Exam: soft, No tenderness, No mass Back Exam: other (well healing lumbar incision with johan intact) OBJECTIVE DATA Vital Signs: Vital Signs - 24 hr Temp Pulse Resp BP Pulse Ox 12/19/17 08:25 68 20 95 12/19/17 04:00 9896.1 F 62 18 118/64 93 L 12/19/17 00:00 97.8 F 83 24 120/64 91 L 12/18/17 20:15 63 18 97 12/18/17 20:00 97.9 F 65 20 135/68 92 L 12/18/17 16:00 98.7 F 62 24 112/72 98 12/18/17 13:50 68 28 H 97 12/18/17 12:00 98 F 75 28 H 116/67 95 12/18/17 11:39 97 12/18/17 11:25 60 20 81 L Oxygen-Last 24 hours O2 Percentage 6 Liters = 44% Oxygen Flowrate (L/min)-RT 15 Oxygen Flowrate (L/min)-RT 15 Pain Assessment - Last Documented Pain Intensity 0 Pain Scale Used 0-10 Pain Scale Intake and Output: Intake & Output 12/16/17 12/17/17 12/18/17 12/19/17 11:59 11:59 11:59 11:59 Intake Total 0 2628 2105 Output Total 1200 340 Balance 0 1428 1765 Weight 59.3 kg 79.8 kg Lab Results: Accuchecks Date 12/18/17 Time 22:00 Accucheck Value: 229 Accucheck Value: 127 Accucheck Value: 212 Lab Results-Last 24 Hours 12/19/17 12/19/17 12/19/17 Range/Units 06:40 06:40 06:40 WBC 5.6 (4.0-10.5) K/mm3 RBC 3.48 L (4.1-5.6) M/mm3 Hgb 9.4 L (12.5-18.0) gm/dl Hct 30.4 L (42-50) % MCV 87.4 (78-100) fl MCH 27.0 (26-32) pg MCHC 30.9 L (32-36) g/dl RDW 18.2 H (11.5-14.0) % Plt Count 158 (150-450) K/mm3 MPV 11.3 H (6-9.5) fl Sodium 141 (137-145) mmol/L Potassium 3.9 (3.5-5.1) mmol/L Chloride 107 (98-107) mmol/L Carbon Dioxide 22 (22-30) mmol/L Anion Gap 15.7 H (5-15) MEQ/L BUN 42 H (9-20) mg/dL Creatinine 2.32 H (0.66-1.25) mg/dL Estimated GFR 29 ML/MIN Glucose 79 (74-106) mg/dL Calcium 8.8 (8.4-10.2) mg/dL Total Bilirubin 0.80 (0.2-1.3) mg/dL AST 51 (17-59) U/L ALT 52 H (0-50) U/L Alkaline Phosphatase 70 (38-126) U/L Serum Total Protein 5.8 L (6.3-8.2) g/dL Albumin 3.0 L (3.5-5.0) g/dL Random Vancomycin 18.09 ug/mL Radiology Exams: Radiology Procedures Category Date Time Status CHEST 1 VIEW (PORTABLE) Routine Exams 12/18/17 07:00 Completed Multi-Disciplinary Progress Notes: Multi-Disciplinary Progress Notes 12/18/17 13:00 (created 12/18/17 13:32) Case Management Note by Ela Lagunas FROM [facility] CALLED TO REPORT THAT SHE CALLED SURGEON TO RESCHEDULE APPT AND THAT SURGEON REQUESTS THAT THEY DISCONTINUE JOHAN IN PTS BACK TOMORROW, 12/19/17. WILL NOTIFY PHYSICIAN ON ROUNDS TOMORROW. Initialized on 12/18/17 13:32 - END OF NOTE 12/18/17 10:30 (created 12/18/17 13:30) Case Management Note by Ela Lagunas CALLED FROM [facility] TO REPORT THAT PT HAD AN APPT WITH SURGEON TOMORROW, 12/19/17, THAT THEY WILL RESCHEDULE. REPORTS THAT PT WAS SCHEDULED TO GO VIA AMBULANCE AT 0630. Initialized on 12/18/17 13:30 - END OF NOTE 12/18/17 10:00 (created 12/18/17 13:35) Case Management Note by Ela Lagunas PLAN FOR RETURN TO [facility] ON DISCHARGE. NO ADDNL NEEDS NOTED. WILL FOLLOW. 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
[2017-12-19] MEDS: Klor Con 10 MEQ PO SCH (09:32)
[2017-12-19] MEDS: Flomax 0.4 MG PO SCH (09:32)
[2017-12-19] MEDS: Acidophilus TABLET PO SCH ×2 (09:32→22:23)
[2017-12-19] MEDS: Miralax Powder 17GM PACKET PO SCH (09:33)
[2017-12-19] MEDS: SYNTHROID 25 MCG PO SCH (09:33)
[2017-12-19] MEDS: FEOSOL 325 MG PO SCH (09:33)
[2017-12-19] MEDS: Vitamin C 500 MG PO SCH (09:33)
[2017-12-19] MEDS: Senokot-S Tablet PO SCH (09:33)
[2017-12-19] MEDS: XARELTO 10 MG TABLET PO SCH (09:33)
[2017-12-19] MEDS: Protonix 40MG Tablet PO SCH ×2 (09:33→22:23)
[2017-12-19] MEDS: Cordarone 200 MG PO SCH ×2 (09:33→22:22)
[2017-12-19] MEDS: Levofloxacin 250MG Tablet PO SCH (09:33)
[2017-12-19] MEDS: Coreg 6.25 MG PO SCH ×2 (09:33→22:23)
[2017-12-19] MEDS: ECOTRIN 81 MG PO SCH (09:33)
[2017-12-19] MEDS: VITAMIN D PO SCH (09:33)
--- NOTE | 2017-12-19 09:33 | XRAY ---
Indication: Short of breath. Comparison: One day earlier. Portable apical lordotic chest demonstrates slight worsening right lung interstitial alveolar opacities especially near the base possibly explained by less inflated lungs. Heart is not enlarged. Stable calcified granulomas, left-sided AICD, and right arm PICC line. No new cardiopulmonary abnormalities.
[2017-12-19] MEDS: Vitamin B-12 500 MCG PO SCH (09:34)
[2017-12-19] MEDS: MAXIPIME 1 GM** 1 G in Sodium Chloride 100ML MINI-BAG PLUS 100 ML IV SCH (09:51)
[2017-12-19] MEDS: VANCOCIN 500 MG VIAL*** 500 MG in Sodium Chloride 100ML MINI-BAG PLUS 100 ML IV SCH (10:49)
[2017-12-19] MEDS ORDERED: Lasix 20 MG/2 ML IV ONE (12:00)
[2017-12-19] MEDS: Sodium Chloride 0.9% 10 ML FLUSH Syringe IV SCH ×2 (15:18→22:22)
[2017-12-19] MEDS: Zocor 10MG PO SCH (22:23)
[2017-12-19] MEDS: REMERON 30 MG PO SCH (22:23)
[2017-12-20 05:41] LABS: BASOPHIL % 0.4 % (0.0-0.4); Basophil (Absolute #) 0.02 (0-0.4); Eosinophil % 3.8 % (0.00-5.0); Eosinophil (Absolute #) 0.17 (0-0.5); Granulocyte Absolute (ANC) 3.17 (1.4-6.9); Granulocytes % 70.8 % (36.0-66.0); Hematocrit 31.2 % (42-50); Hemoglobin 9.5 gm/dl (12.5-18.0); Lymphocyte (Absolute #) 0.66 (1.0-4.6); Lymphocytes % 14.7 % (24.0-44.0); Mean Cell Volume 87.9 fl (78-100); Mean Corpuscular Hgb Concent. 30.4 g/dl (32-36); Mean Platelet Volume 11.3 fl (6-9.5); Monocyte (Absolute #) 0.46 (0.0-1.3); Monocytes % 10.3 % (0.0-12.0); Platelet Count 146 K/mm3 (150-450); Red Blood Count 3.55 M/mm3 (4.1-5.6); Red Cell Distribution Width 18.2 % (11.5-14.0); White Blood Count 4.5 K/mm3 (4.0-10.5)
[2017-12-20 05:46] LABS: Mean Corpuscular Hemoglobin 26.7 pg (26-32)
[2017-12-20 06:06] LABS: ANION GAP 15.2 MEQ/L (5-15); BILIRUBIN,TOTAL 0.6 mg/dL (0.2-1.3); Calcium 8.5 mg/dL (8.4-10.2); Creatinine 1 2.37 mg/dL (0.66-1.25); Potassium 3.5 mmol/L (3.5-5.1); Total Protein 5.7 g/dL (6.3-8.2)
[2017-12-20] MEDS: Valium 5 MG PO SCH ×2 (06:43→13:02)
[2017-12-20] MEDS: Sodium Chloride 0.9% 10 ML FLUSH Syringe IV SCH ×3 (06:45→14:34)
[2017-12-20] MEDS: Advair Hfa 230/21 Mcg COMMON CANISTER IH SCH (06:48)
[2017-12-20] MEDS: DUONEB 0.5-3 MG/3 ml Neb IH PRN ×2 (06:48→11:08)
--- NOTE | 2017-12-20 09:00 | PCM.DS ---
Discharge Summary Date of Admission: 12/17/17 08:48 Admitting Physician: RONALD ZUÑIGA Primary Care Provider: RONALD ZUÑIGA Allergies Allergies No Known Drug Allergies Allergy (Verified 12/16/17 01:22) Hospital Summary - Hospital Course Hospital Course: patient was admitted with shortness of breath, had an elevated d-dimer and elevated renal function. [facility] for osteomyelitis and discitis in lumbar spine. had a surgery and is recovering well. VQ scan was negative, overall workup has been good and he is doing well. has a hx of CHF and required some lasix, doing better now. - Vitals & Intake/Output Vital Signs: Vital Signs Temperature 97.8 F 12/20/17 06:54 Pulse Rate 58 L 12/20/17 06:54 Respiratory Rate 12/20/17 06:54 Blood Pressure 132/65 12/20/17 06:54 O2 Sat by Pulse Oximetry 94 L 12/20/17 07:26 Oxygen-Last Documented O2 Percentage 4 Liters = 36% Intake & Output: Intake & Output 12/17/17 12/18/17 12/19/17 12/20/17 11:59 11:59 11:59 11:59 Intake Total 0 2628 2105 200 Output Total 0314 748 9946 Balance 0 1428 1765 -1475 Weight 59.3 kg 79.8 kg 78.5 kg - Lab Result Diagrams: 12/20/17 05:04 12/20/17 05:04 Lab Results-Last 24 Hrs: Accuchecks Date 12/19/17 Time 21:00 Accucheck Value: 81 Accucheck Value: 86 Accucheck Value: 109 Lab Results-Last 24 Hours 12/19/17 12/20/17 12/20/17 Range/Units 05:00 05:04 05:04 WBC 4.5 (4.0-10.5) K/mm3 RBC 3.55 L (4.1-5.6) M/mm3 Hgb 9.5 L (12.5-18.0) gm/dl Hct 31.2 L (42-50) % MCV 87.9 (78-100) fl MCH 26.7 (26-32) pg MCHC 30.4 L (32-36) g/dl RDW 18.2 H (11.5-14.0) % Plt Count 146 L (150-450) K/mm3 MPV 11.3 H (6-9.5) fl Gran % 70.8 H (36.0-66.0) % Lymphocytes % 14.7 L (24.0-44.0) % Monocytes % 10.3 (0.0-12.0) % Eosinophils % 3.8 (0.00-5.0) % Basophils % 0.4 (0.0-0.4) % Basophils # 0.02 (0-0.4) Sodium 140 (137-145) mmol/L Potassium 3.5 (3.5-5.1) mmol/L Chloride 106 (98-107) mmol/L Carbon Dioxide 22 (22-30) mmol/L Anion Gap 15.2 H (5-15) MEQ/L BUN 41 H (9-20) mg/dL Creatinine 2.37 H (0.66-1.25) mg/dL Estimated GFR 28 ML/MIN Glucose 138 H (74-106) mg/dL Calcium 8.5 (8.4-10.2) mg/dL Total Bilirubin 0.60 (0.2-1.3) mg/dL AST 50 (17-59) U/L ALT 53 H (0-50) U/L Alkaline Phosphatase 69 (38-126) U/L NT-Pro-B Natriuret Pep 45463 H (0-1800) pg/mL Serum Total Protein 5.7 L (6.3-8.2) g/dL Albumin 3.0 L (3.5-5.0) g/dL Micro Results-Entire Visit: Accuchecks Date 12/19/17 Time 21:00 Accucheck Value: 81 Accucheck Value: 86 Accucheck Value: 109 - Radiology Exams Ordered Rad Exams-Entire Visit: Radiology Procedures Category Date Time Status CHEST 1 VIEW (PORTABLE) Urgent Exams 12/19/17 09:21 Completed - Procedures and Test Procedures and Tests throughout Hospitalization: Therapy Orders & Screens 12/18/17 19:00 Respiratory MDI BID Comment: MEGHA Diagnosis: PNEUMONIA, FAILED OUTPATIENT, EXAC COPD, Discharge Exam General Appearance: no apparent distress, alert Respiratory Exam: normal breath sounds, lungs clear, No respiratory distress Cardiovascular Exam: regular rate/rhythm, normal heart sounds Gastrointestinal/Abdomen Exam: soft Back Exam: other (well healing surgical scar lower back) Final Diagnosis/Problem List - Final Discharge Diagnosis/Problem (1) Acute kidney injury Current Visit: Yes Status: Acute (2) D-dimer, elevated Current Visit: Yes Status: Acute (3) Shortness of breath Current Visit: Yes Status: Acute (4) COPD (chronic obstructive pulmonary disease) Current Visit: Yes Status: Chronic (5) 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 - Discharge Disposition: Home, Self-Care Condition: Good Prescriptions: No Action Carvedilol 6.25 mg [Coreg 6.25 MG] 6.25 mg PO BID Potassium Chloride 10 Meq Tab* [Klor Con 10 MEQ] 20 meq PO DAILY Rivaroxaban [Xarelto] 20 mg PO DAILY Simvastatin 20Mg [Zocor 20Mg] 10 mg PO HS Budesonide/Formoterol Fumarate [Symbicort 160-4.5 Mcg Inhaler] 10.2 gm IH BID Amiodarone HCl 200 mg PO BID Cholecalciferol (Vitamin D3) [Vitamin D3] 5,000 unit PO DAILY #0 Cyanocobalamin (Vitamin B-12) [Vitamin B12] 500 mcg PO DAILY Aspirin 81 mg PO DAILY Albuterol 2.5 mg/3 ml Neb [Proventil 2.5 mg/3 ml Neb] 2.5 mg IH QID PRN Albuterol 2.5 mg/3 ml Neb [Proventil 2.5 mg/3 ml Neb] 2.5 mg IH Q2H PRN PRN Reason: Dyspnea Bisacodyl 10 mg [Dulcolax 10 MG SUPP] 10 mg NM Q12H PRN PRN PRN Reason: Constipation Ferrous Sulfate 325 mg [Feosol 325 mg] 325 mg PO DAILY Diazepam 5 mg [Valium 5 MG] 5 mg PO Q8H Ubidecarenone [Coenzyme Q10] 100 mg PO DAILY Cefepime HCl 2 gm [Maxipime 2 GM] 2 gm IV Q8H Furosemide 40 mg [Lasix 40 MG] 40 mg PO DAILY Meclizine HCl 12.5 mg PO Q6H PRN PRN Reason: Dizziness Mag Hydrox/Al Hydrox/Simeth [Maalox Es 30 ml Unit Dose] 30 ml PO Q2H PRN PRN Reason: Indigestion Levothyroxine Sodium 25 Mcg [Synthroid 25 Mcg] 25 mcg PO DAILY Levofloxacin [Levaquin] 500 mg PO DAILY Multivit with Iron,Minerals [Compete] 1 tab PO DAILY Magnesium Hydroxide [Milk of Magnesia] 10 ml PO DAILY Melatonin/Pyridoxine HCl (B6) [Melatonin 3 mg Tablet] 6 mg PO DAILY Omeprazole 20 MG [Prilosec 20 mg] 20 mg PO BID Bismuth Subsalicylate [Pepto-Bismol] 10 ml PO Q4H PRN PRN Reason: Upset Stomach Oxycodone HCl/Acetaminophen [Percocet 10-325 mg Tablet] 1 tab PO Q4H PRN PRN Reason: Moderate Pain Oxycodone HCl/Acetaminophen [Percocet 10-325 mg Tablet] 2 tab PO Q4H PRN PRN Reason: Servere Pain Polyethylene Glycol 3350 17 gm [Miralax Powder 17GM PACKET] 17 gm PO DAILY Mirtazapine [Remeron] 15 tab PO DAILY Promethazine HCl 25 mg [Phenergan 25 mg] 25 mg PO Q8H PRN PRN Reason: Nausea L.acidoph,Paracasei, B.lactis [Probiotic] 1 each PO BID Sennosides/Docusate Sodium [Senna-S Tablet] 2 tab PO DAILY Acetaminophen 325 mg [Tylenol 325 mg] 650 mg PO Q4H PRN PRN Reason: Mild Pain Calcium Carbonate [Tums] 1,000 mg PO Q4H PRN PRN Reason: Indigestion Tamsulosin HCl 0.4 mg [Flomax 0.4 MG] 0.4 mg PO DAILY Sodium Chloride 1 gm PO BID Ascorbic Acid 500 mg [Vitamin C 500 MG] 500 mg PO DAILY Vancomycin HCl in Dextrose 5 % [Vancomycin 1.25 Gram/250Ml-D5w] 1.25 gm IV Q18H
[2017-12-20] MEDS: XARELTO 10 MG TABLET PO SCH (10:24)
[2017-12-20] MEDS: VITAMIN D PO SCH (10:25)
[2017-12-20] MEDS: Vitamin C 500 MG PO SCH (10:25)
[2017-12-20] MEDS: Protonix 40MG Tablet PO SCH (10:25)
[2017-12-20] MEDS: Flomax 0.4 MG PO SCH (10:25)
[2017-12-20] MEDS: Klor Con 10 MEQ PO SCH (10:25)
[2017-12-20] MEDS: Cordarone 200 MG PO SCH (10:25)
[2017-12-20] MEDS: Coreg 6.25 MG PO SCH (10:25)
[2017-12-20] MEDS: Acidophilus TABLET PO SCH (10:25)
[2017-12-20] MEDS: ECOTRIN 81 MG PO SCH (10:25)
[2017-12-20] MEDS: Levofloxacin 250MG Tablet PO SCH (10:25)
[2017-12-20] MEDS: SYNTHROID 25 MCG PO SCH (10:25)
[2017-12-20] MEDS: Miralax Powder 17GM PACKET PO SCH (10:25)
[2017-12-20] MEDS: FEOSOL 325 MG PO SCH (10:25)
[2017-12-20] MEDS: Senokot-S Tablet PO SCH (10:25)
[2017-12-20] MEDS: MAXIPIME 1 GM** 1 G in Sodium Chloride 100ML MINI-BAG PLUS 100 ML IV SCH (10:26)
[2017-12-20] MEDS: Vitamin B-12 500 MCG PO SCH (10:33)
[2017-12-20 11:35] VITALS: BP 129/65; PULSE 59; O2SAT 92
[2017-12-20] MEDS ORDERED: Lasix 20 MG/2 ML IV ONE (12:00)
[2017-12-20] MEDS: NovoLIN R SQ PRN (12:34)
[2017-12-20] MEDS: VANCOCIN 500 MG VIAL*** 500 MG in Sodium Chloride 100ML MINI-BAG PLUS 100 ML IV SCH (12:34)
[2017-12-21] MEDS ORDERED: TROUGH DRUG LEVELS IJ ONE (09:30)
== END 2017-12-20 16:30 | DRG 683 ==
LOC: ED 17:46 → MED SURG 12-16 00:47 → OBSVTOIN 12-17 08:48
PROVIDERS: ADMIT Family Medicine; ATTEND Family Medicine
DX: M46.46 Discitis, unspecified, lumbar region (principal); N17.9 Acute kidney failure, unspecified; M46.26 Osteomyelitis of vertebra, lumbar region; R79.1 Abnormal coagulation profile; J44.9 Chronic obstructive pulmonary disease, unspecified; Z79.01 Long term (current) use of anticoagulants; Z79.899 Other long term (current) drug therapy; F41.8 Other specified anxiety disorders; I25.10 Atherosclerotic heart disease of native coronary artery without angina pectoris; I50.9 Heart failure, unspecified; M19.90 Unspecified osteoarthritis, unspecified site; Z95.810 Presence of automatic (implantable) cardiac defibrillator; Z98.61 Coronary angioplasty status; Z87.891 Personal history of nicotine dependence; D64.9 Anemia, unspecified
CPT/HCPCS: 36415; 71045; 76770; 78582; 80048; 80053; 80202; 81002; 82962; 83036; 83605; 83880; 84484; 85025; 85027; 85379; 85652; 87070; 87430; 87631; 93005; 93041; 93268; 94150; 94640; 94760; 99285; A9540; A9567; G0378; J0692; J0696; J1642; J1940; J2930; J3370; A9270-GY